=== PATIENT | male | born 1980 | race Caucasian/White ===

== ENCOUNTER 2018-01-28 15:57 | Emergency (ER) | payer OTHER ==
[~2018-01-28] VITALS: Ht 175.3 cm; Wt 68.0 kg
[~2018-01-28 15:57] MED LIST: ALBU90OI INH; AMIT50; AMOX500 PO; ARIP10 PO; AZIT250 PO; AZIT500 PO; BACL10 PO; BUPR150ER PO; BUPR150T2 PO; BUPR75 PO; CEPH500 PO; CIPR500 PO; CIPRO500 MG PO; CRUTCH USE; CYCL10 PO; Cleocin HCl150 MG PO; Cleocin HCl300 MG PO; Crutch1 EACH MISC; DOXY100 PO; GABA300 PO; GABA800 PO; HYDACE5 PO; HYDACE5325 PO; HYDPAM50 PO; IBUP600 PO; IBUP800 PO; KETO10 PO; LAMO25 PO; NAPR500 PO; Naprosyn500 MG PO; ONDA4ODT MM; OXYACE5T PO; PENVK500 PO; PHENA200 PO; PRED20 PO; PROM25 PO; Prozac20 MG; Prozac20 MG PO; QUET25 PO; RXTRAM50 PO; Robaxin500 MG PO; Roxicodone15 MG PO; SULTRIDS PO; TAMS.4ER PO; TRAACE PO; TRAM50 PO; ZYPREXA
== END 2018-01-28 16:33 | disposition home or self-care (01) ==
LOC: ER 15:57
DX: S01.01XA Laceration without foreign body of scalp, initial encounter (principal); F32.9 Major depressive disorder, single episode, unspecified; J45.909 Unspecified asthma, uncomplicated; Z91.018 Allergy to other foods; Z88.6 Allergy status to analgesic agent; Z88.2 Allergy status to sulfonamides; Z88.1 Allergy status to other antibiotic agents; Z79.899 Other long term (current) drug therapy; W22.8XXA Striking against or struck by other objects, initial encounter
CPT/HCPCS: 12004; 99283

== ENCOUNTER 2018-05-13 21:04 | Emergency (ER) | payer OTHER ==
[~2018-05-13] VITALS: Ht 175.3 cm; Wt 74.8 kg
== END 2018-05-13 23:35 ==
LOC: ER 21:04
DX: R45.1 Restlessness and agitation (principal); Z59.0 Homelessness; Z91.018 Allergy to other foods; Z88.6 Allergy status to analgesic agent; Z88.1 Allergy status to other antibiotic agents; Z88.2 Allergy status to sulfonamides; F17.210 Nicotine dependence, cigarettes, uncomplicated
CPT/HCPCS: 99284

== ENCOUNTER 2018-07-02 12:32 | Observation (INO) | payer OTHER ==
[~2018-07-02] VITALS: Ht 175.3 cm; Wt 72.6 kg
[2018-07-02 13:22] LABS: BASOPHILS ABSOLUTE AUTO 0.04 K/mm3 (0.00-0.23); BASOPHILS PERCENT AUTO 0 % (0-2); EOSINOPHILS ABSOLUTE AUTO 0.31 K/mm3 (0.00-0.68); EOSINOPHILS PERCENT AUTO 3 % (0-6); Hematocrit 46.6 % (37.0-53.0); Hemoglobin 15.8 g/dL (13.5-17.5); IMMATURE GRAN ABSOLUTE AUTO 0.02 K/mm3 (0.00-0.10); IMMATURE GRAN PERCENT AUTO 0 % (0-1); LYMPHOCYTES ABSOLUTE AUTO 1.07 K/mm3 (0.84-5.20); LYMPHOCYTES PERCENT AUTO 11 % (21-46); MONOCYTES ABSOLUTE AUTO 0.56 K/mm3 (0.16-1.47); MONOCYTES PERCENT AUTO 6 % (4-13); Mean Corpuscular HGB 31.1 pg (26.0-34.0); Mean Corpuscular HGB Conc 33.9 g/dL (31.5-36.5); Mean Corpuscular Volume 92 fL (80-100); Mean Platelet Volume 10.8 fL (9.1-12.4); NEUTROPHILS ABSOLUTE AUTO 8.08 K/mm3 (1.96-9.15); NEUTROPHILS PERCENT AUTO 80 % (41-73); Platelet Count 198 K/mm3 (150-400); RDW Coefficient Variation 11.9 % (11.7-14.2); RDW Standard Deviation 40.7 fL (35.1-46.3); Red Blood Cell Count 5.08 M/mm3 (4.30-5.90); White Blood Cell Count 10.08 K/mm3 (4.00-11.30)
[2018-07-02 13:43] LABS: Alanine Aminotransfer (ALT/SGP 17 U/L (12-78); Albumin, Blood 3.5 g/dL (3.4-5.0); Alk Phos 82 U/L (50-136); Anion Gap 6 mmol/L (6-16); Aspartate Aminotrans (AST/SGOT 14 U/L (12-37); Bilirubin, Total 0.3 mg/dL (0.1-1.0); Blood Urea Nitrogen 16 mg/dL (8-24); CO2, Blood 30 mmol/L (21-32); Calcium, Blood 8.3 mg/dL (8.5-10.1); Chloride, Blood 105 mmol/L (98-108); Creatinine, Blood 0.73 mg/dL (0.60-1.20); Ethanol (Alcohol), Blood, Med <3 mg/dL; Globulin, Blood 3.4 g/dL (2.2-4.0); Glomerular Filtration Rate >60 (60-); Glucose, Blood 84 mg/dL (70-99); Potassium, Blood 4.5 mmol/L (3.5-5.5); Salicylate 2.4 mg/dL (2.8-20.0); Sodium, Blood 141 mmol/L (136-145); Total Protein, Blood 6.9 g/dL (6.4-8.2)
[2018-07-02 13:49] LABS: Acetaminophen, Random <2.0 ug/mL (10.0-30.0)
[2018-07-02 14:01] LABS: Source, Urine Voided
[2018-07-02 14:07] LABS: Appearance, Urine Clear (Clear); Bilirubin, Urine Neg (Neg); Blood, Urine Neg (Neg); Color, Urine Yellow (P-Yellow); Glucose Qualitative, Urine Neg (Neg); Ketones, Urine Neg (Neg); Leukocyte Esterase, Urine 1+ (Neg); Nitrite, Urine Neg (Neg); Protein, Urine Neg (Neg); Urobilinogen, Urine NORM (Normal)
[2018-07-02 14:20] LABS: U Amphetamine Screen DETECTED; U Barbituate Screen Not Detected; U Benzodiazapine Screen Not Detected; U Buprenorphine Screen Not Detected; U Cannabinoids Screen DETECTED; U Cocaine Screen Not Detected; U Methadone Screen Not Detected; U Methamphetamine Screen Not Detected; U Opiates Screen Not Detected; U Oxycodone Screen Not Detected; U Phencyclidine Screen Not Detected; U Propoxyphene Screen Not Detected
[2018-07-02 14:28] LABS: Red Blood Cells, Urine Not Seen /hpf (0-2)
[2018-07-02 14:29] LABS: Bacteria Not Seen /hpf; Squamous Epithelial Cells Not Seen /hpf (Few)
== END 2018-07-04 13:41 | disposition home or self-care (01) ==
LOC: ER 12:32 → EOR 12:33
PROVIDERS: Emergency Medicine
DX: R56.9 Unspecified convulsions (principal); F28 Other psychotic disorder not due to a substance or known physiological condition; F15.10 Other stimulant abuse, uncomplicated; F10.10 Alcohol abuse, uncomplicated; R45.851 Suicidal ideations; F17.210 Nicotine dependence, cigarettes, uncomplicated; Z88.2 Allergy status to sulfonamides; Z86.14 Personal history of Methicillin resistant Staphylococcus aureus infection; Z88.8 Allergy status to other drugs, medicaments and biological substances
CPT/HCPCS: 71045; 80053; 81001; 84443; 85025; 99285; G0378; G0480; Q3014

== ENCOUNTER 2018-07-21 04:31 | Emergency (ER) | payer OTHER ==
[~2018-07-21] VITALS: Ht 177.8 cm; Wt 79.4 kg
== END 2018-07-21 05:00 | disposition home or self-care (01) ==
LOC: ER 04:31
DX: R45.4 Irritability and anger (principal); R45.1 Restlessness and agitation; R53.83 Other fatigue; Z59.0 Homelessness; F17.210 Nicotine dependence, cigarettes, uncomplicated; Z88.2 Allergy status to sulfonamides
CPT/HCPCS: 99282

== ENCOUNTER 2018-08-13 05:35 | Emergency (ER) | payer OTHER ==
[~2018-08-13] VITALS: Ht 177.8 cm; Wt 79.4 kg
[2018-08-13 06:06] LABS: BASOPHILS ABSOLUTE AUTO 0.02 K/mm3 (0.00-0.23); BASOPHILS PERCENT AUTO 0 % (0-2); EOSINOPHILS PERCENT AUTO 4 % (0-6); Hematocrit 44.8 % (37.0-53.0); Hemoglobin 14.8 g/dL (13.5-17.5); IMMATURE GRAN ABSOLUTE AUTO 0.01 K/mm3 (0.00-0.10); IMMATURE GRAN PERCENT AUTO 0 % (0-1); LYMPHOCYTES ABSOLUTE AUTO 0.67 K/mm3 (0.84-5.20); LYMPHOCYTES PERCENT AUTO 14 % (21-46); MONOCYTES ABSOLUTE AUTO 0.82 K/mm3 (0.16-1.47); MONOCYTES PERCENT AUTO 18 % (4-13); Mean Corpuscular HGB 30.4 pg (26.0-34.0); Mean Corpuscular Volume 92 fL (80-100); Mean Platelet Volume 11.1 fL (9.1-12.4); NEUTROPHILS ABSOLUTE AUTO 2.97 K/mm3 (1.96-9.15); NEUTROPHILS PERCENT AUTO 63 % (41-73); Platelet Count 134 K/mm3 (150-400); RDW Coefficient Variation 12.8 % (11.7-14.2); RDW Standard Deviation 43.2 fL (35.1-46.3); Red Blood Cell Count 4.87 M/mm3 (4.30-5.90); White Blood Cell Count 4.69 K/mm3 (4.00-11.30)
[2018-08-13 06:18] LABS: Alanine Aminotransfer (ALT/SGP 28 U/L (12-78); Albumin, Blood 3.5 g/dL (3.4-5.0); Albumin/Globulin Ratio 1.1 (0.8-1.8); Alk Phos 75 U/L (50-136); Anion Gap 5 mmol/L (6-16); Aspartate Aminotrans (AST/SGOT 13 U/L (12-37); Bilirubin, Total 0.3 mg/dL (0.1-1.0); Blood Urea Nitrogen 17 mg/dL (8-24); Bun/Creatinine Ratio 22.3 (12.0-20.0); CO2, Blood 28 mmol/L (21-32); Calcium, Blood 7.8 mg/dL (8.5-10.1); Chloride, Blood 109 mmol/L (98-108); Creatinine, Blood 0.76 mg/dL (0.60-1.20); Globulin, Blood 3.1 g/dL (2.2-4.0); Glomerular Filtration Rate >60 (60-); Glucose, Blood 80 mg/dL (70-99); Potassium, Blood 4.5 mmol/L (3.5-5.5); Sodium, Blood 142 mmol/L (136-145); Total Protein, Blood 6.6 g/dL (6.4-8.2)
[2018-08-13 06:29] LABS: International Normalized Ratio 1.02; Prothrombin Time Results 10.8 Sec (9.7-11.5)
== END 2018-08-13 07:12 | disposition home or self-care (01) ==
LOC: ER 05:35 → EDBD 05:35 → ER 07:12
PROVIDERS: Emergency Medicine
DX: S09.90XA Unspecified injury of head, initial encounter (principal); W06.XXXA Fall from bed, initial encounter; Z59.0 Homelessness; Z91.018 Allergy to other foods; Z88.6 Allergy status to analgesic agent; Z88.8 Allergy status to other drugs, medicaments and biological substances; Z88.2 Allergy status to sulfonamides; Z88.1 Allergy status to other antibiotic agents; F17.200 Nicotine dependence, unspecified, uncomplicated
CPT/HCPCS: 70450; 72125; 80053; 85025; 85610; 85730; 99284-25

== ENCOUNTER 2018-08-15 09:23 | Emergency (ER) | payer OTHER ==
[~2018-08-15] VITALS: Ht 175.3 cm; Wt 68.0 kg
[2018-08-15] MEDS ORDERED: RISP2 PO (12:02)
== END 2018-08-15 12:44 | disposition home or self-care (01) ==
LOC: ER 09:23
DX: S91.202A Unspecified open wound of left great toe with damage to nail, initial encounter (principal); W22.8XXA Striking against or struck by other objects, initial encounter; F17.200 Nicotine dependence, unspecified, uncomplicated; Z91.018 Allergy to other foods; Z88.6 Allergy status to analgesic agent; Z88.2 Allergy status to sulfonamides; Z88.1 Allergy status to other antibiotic agents
CPT/HCPCS: 11730; 99284-25

== ENCOUNTER 2018-09-10 15:56 | Inpatient (IN) | payer OTHER ==
[~2018-09-10] VITALS: Ht 182.9 cm; Wt 76.6 kg
[~2018-09-10 15:56] MED LIST changes: +Dilantin 100 m100 MG PO; +RISP2 PO
[2018-09-10 16:07] LABS: BASOPHILS ABSOLUTE AUTO 0.05 K/mm3 (0.00-0.23); BASOPHILS PERCENT AUTO 0 % (0-2); EOSINOPHILS ABSOLUTE AUTO 0.24 K/mm3 (0.00-0.68); EOSINOPHILS PERCENT AUTO 1 % (0-6); Hematocrit 52.7 % (37.0-53.0); Hemoglobin 16.9 g/dL (13.5-17.5); IMMATURE GRAN ABSOLUTE AUTO 0.05 K/mm3 (0.00-0.10); IMMATURE GRAN PERCENT AUTO 0 % (0-1); LYMPHOCYTES ABSOLUTE AUTO 0.93 K/mm3 (0.84-5.20); LYMPHOCYTES PERCENT AUTO 6 % (21-46); MONOCYTES PERCENT AUTO 6 % (4-13); Mean Corpuscular HGB 30.6 pg (26.0-34.0); Mean Corpuscular HGB Conc 32.1 g/dL (31.5-36.5); Mean Corpuscular Volume 96 fL (80-100); Mean Platelet Volume 10.6 fL (9.1-12.4); NEUTROPHILS ABSOLUTE AUTO 14.59 K/mm3 (1.96-9.15); NEUTROPHILS PERCENT AUTO 87 % (41-73); Platelet Count 191 K/mm3 (150-400); RDW Standard Deviation 46.4 fL (35.1-46.3); Red Blood Cell Count 5.52 M/mm3 (4.30-5.90); White Blood Cell Count 16.86 K/mm3 (4.00-11.30)
[2018-09-10 16:32] LABS: Alanine Aminotransfer (ALT/SGP 19 U/L (12-78); Albumin/Globulin Ratio 1.2 (0.8-1.8); Alk Phos 87 U/L (50-136); Anion Gap 14 mmol/L (6-16); Aspartate Aminotrans (AST/SGOT 10 U/L (12-37); Bilirubin, Total 0.7 mg/dL (0.1-1.0); Blood Urea Nitrogen 15 mg/dL (8-24); Bun/Creatinine Ratio 22.5 (12.0-20.0); CO2, Blood 19 mmol/L (21-32); Calcium, Blood 8.3 mg/dL (8.5-10.1); Chloride, Blood 106 mmol/L (98-108); Creatinine, Blood 0.67 mg/dL (0.60-1.20); Globulin, Blood 3.3 g/dL (2.2-4.0); Glomerular Filtration Rate >60 (60-); Glucose, Blood 101 mg/dL (70-99); Magnesium, Blood 1.9 mg/dL (1.6-2.4); Potassium, Blood 3.6 mmol/L (3.5-5.5); Sodium, Blood 139 mmol/L (136-145); Total Protein, Blood 7.3 g/dL (6.4-8.2)
--- NOTE | 2018-09-10 19:53 | NUR ---
REPORT RECEIVED REPORT RECEIVED FROM SANDY LIGHT RN
--- NOTE | 2018-09-10 22:02 | NUR ---
ARRIVAL TO UNIT/ADMISSION PT ARRIVED TO ICU APPROX 1999. PT SLEEPING SOUNDLY, STARTLES WHEN AROUSED. ONCE AWAKE, PT ALERT AND ORIENTED, FOLLOWING COMMANDS. PT QUICKLY FALLS BACK TO SLEEP DURING ASSESSMENTS AND IS DIFFICULT TO AROUSE. PT IS POOR HISTORIAN. ATTEMPTED TO COMPLETE ADMISSION MEDS AND HISTORY AND PT HAS VARYING STORIES. ADMISSION HISTORY COMPLETED PER MEDICAL RECORD. MED REC INCOMPLETE PT STATES HE DOES NOT KNOW HIS HOME MEDS. PT FIDGETING, RESTLESS WITH CORDS/LINES AND BECAME IRRITABLE WHEN ATTEMPTED TO REDIRECT. PT DECLINES NEEDING TO URINATE, AND UPON TRANSFER PT'S BOXERS WERE COVERED IN URINE. SEIZURE PRECAUTIONS IN PLACE. VITALS STABLE. SEE ASSESSMENT.
[2018-09-10 22:46] LABS: Source, Urine Catheter
[2018-09-10 22:47] LABS: Bilirubin, Urine Neg (Neg); Blood, Urine Neg (Neg); Glucose Qualitative, Urine Neg (Neg); Ketones, Urine Neg (Neg); Leukocyte Esterase, Urine 1+ (Neg); Nitrite, Urine Neg (Neg); Protein, Urine Neg (Neg); Urobilinogen, Urine 1+ (Normal)
[2018-09-10 22:53] LABS: Appearance, Urine Clear (Clear); Color, Urine Yellow (P-Yellow)
[2018-09-10 22:54] LABS: Bacteria Rare /hpf; Mucus Light (0-Heavy); Red Blood Cells, Urine Not Seen /hpf (0-2); Squamous Epithelial Cells Rare /hpf (Few)
[2018-09-10 23:07] LABS: U Amphetamine Screen DETECTED; U Barbituate Screen DETECTED; U Benzodiazapine Screen DETECTED; U Buprenorphine Screen Not Detected; U Cannabinoids Screen DETECTED; U Cocaine Screen Not Detected; U Methadone Screen Not Detected; U Methamphetamine Screen DETECTED; U Opiates Screen Not Detected; U Oxycodone Screen Not Detected; U Phencyclidine Screen Not Detected; U Propoxyphene Screen Not Detected
--- NOTE | 2018-09-10 23:55 | NUR ---
NEURO, PSYCHOSOCIAL, CIWA, HOME SITUATION PT CONTINUES TO BE SLEEPY, BUT AROUSING MORE EASILY. PT CALM AND COOPERATIVE, BUT CIWA ELEVATED PT IS NOW SWEATY. WHEN PROMPTED, PT CONTINUES TO TALK ABOUT PT'S MORGELLONS DISEASE, HAS INCREASED FLIGHT OF IDEAS, AND EXPLAINS THAT PEOPLE WITH BIBLES COME UP TO HIM AND COMMUNICATE WITH EITHER WINKS OR COUGHS. HE STATES, "I AM NOT COMING DOWN OFF OF ALCOHOL OR DRUGS," AND REPORTS HE HAS BEEN DEALING WITH THESE IMAGES FOR SEVERAL YEARS. DISCUSSED PT'S TOX SCREEN RESULTS AND PT STATES, "THAT MAKES ME NOT TRUST THE PEOPLE I'M LIVING WITH. THEY ARE ALWAYS OFFERING TO BRING ME COFFEE AND THEY ARE HIGH AND THEN I AM HIGH. I AM NOT SHOOTING MY VEINS OR SMOKING DOPE." BANANA LOADER REFERRAL ALREADY IN PLACE PER ADMITTING DATA NETWORK ARCHITECT. WILL CONTINUE TO MONITOR FOR NEED OF CIWA ORDER SET, BUT AT THIS TIME PT REPORTS THIS HIS BASELINE AND CONTINUES TO BE ORIENTED, CALM AND COOPERATIVE.
[2018-09-11 00:27] LABS: Adenovirus Not Detected (NOT DETECT); Bordetella pertussis Not Detected (NOT DETECT); Chlamydophila pneumoniae Not Detected (NOT DETECT); Coronavirus 229E Not Detected (NOT DETECT); Coronavirus HKU1 Not Detected (NOT DETECT); Coronavirus NL63 Not Detected (NOT DETECT); Coronavirus OC43 Not Detected (NOT DETECT); Human Metapneumovirus Not Detected (NOT DETECT); Human Rhinovirus/Enterovirus Not Detected (NOT DETECT); Influenza A Not Detected (NOT DETECT); Influenza A/2009-H1 Not Detected (NOT DETECT); Influenza A/H1 Not Detected (NOT DETECT); Influenza A/H3 Not Detected (NOT DETECT); Influenza B Not Detected (NOT DETECT); Mycoplasma pneumoniae Not Detected (NOT DETECT); Parainfluenza Virus 1 Not Detected (NOT DETECT); Parainfluenza Virus 2 Not Detected (NOT DETECT); Parainfluenza Virus 3 Not Detected (NOT DETECT); Parainfluenza Virus 4 Not Detected (NOT DETECT); Respiratory Syncytial Virus Not Detected (NOT DETECT)
[2018-09-11 03:33] LABS: Hematocrit 43.7 % (37.0-53.0); Mean Corpuscular HGB Conc 34.3 g/dL (31.5-36.5); Mean Corpuscular Volume 90 fL (80-100); Mean Platelet Volume 10.9 fL (9.1-12.4); Platelet Count 131 K/mm3 (150-400); RDW Coefficient Variation 12.5 % (11.7-14.2); RDW Standard Deviation 41.4 fL (35.1-46.3); Red Blood Cell Count 4.84 M/mm3 (4.30-5.90); White Blood Cell Count 6.46 K/mm3 (4.00-11.30)
[2018-09-11 03:46] LABS: International Normalized Ratio 1.09; Prothrombin Time Results 11.5 Sec (9.7-11.5)
[2018-09-11 03:49] LABS: Alanine Aminotransfer (ALT/SGP 13 U/L (12-78); Albumin, Blood 3.3 g/dL (3.4-5.0); Albumin/Globulin Ratio 1.3 (0.8-1.8); Alk Phos 71 U/L (50-136); Anion Gap 6 mmol/L (6-16); Aspartate Aminotrans (AST/SGOT 11 U/L (12-37); Bilirubin, Total 0.7 mg/dL (0.1-1.0); Blood Urea Nitrogen 11 mg/dL (8-24); Bun/Creatinine Ratio 17.8 (12.0-20.0); CO2, Blood 25 mmol/L (21-32); Calcium, Blood 7.8 mg/dL (8.5-10.1); Chloride, Blood 108 mmol/L (98-108); Creatinine, Blood 0.62 mg/dL (0.60-1.20); Globulin, Blood 2.6 g/dL (2.2-4.0); Glomerular Filtration Rate >60 (60-); Glucose, Blood 85 mg/dL (70-99); Potassium, Blood 3.9 mmol/L (3.5-5.5); Sodium, Blood 139 mmol/L (136-145); Total Protein, Blood 5.9 g/dL (6.4-8.2)
--- NOTE | 2018-09-11 05:00 | NUR ---
CIWA REASSESSMENTS CIWA REMAINS ELEVATED BUT IMPROVED. CONCERN FOR ASSESSMENTS BEING PT'S BASELINE. PT CONTINUES TO DENY ETOH USE AND HAS RESTED QUIETLY.
--- NOTE | 2018-09-11 06:47 | NUR ---
SUMMARY PT HAS SLEPT MAJORITY OF NIGHT, AROUSING EASILY FOR REASSESSMENTS. PT HAS BEEN IRRITABLE, LABILE THROUGHOUT NIGHT REGARDING ROUNDS AND CARES. THIS MORNING PT DID HAVE ONE EPISODE OF AGITATION, ATTEMPTING TO HIT STAFF WHEN STAFF WAS ATTEMPTING TO REPLACE DISCONNECTED LINES, ESCALATING TO THE POINT OF YELLING AUDIBLE ON OTHER SIDE OF ICU. HOWEVER, PT DID DE-ESCALATE WITH PRESENCE OF INCREASED STAFF AND HAS BEEN CALM, COOPERATIVE AND APOLOGETIC SINCE THIS EPISODE. NO SEIZURES OR SEIZURE LIKE ACTIVITY THROUGHOUT NIGHT. NEURO ASSESSMENTS UNCHANGED OTHER THAN PT HAS BEEN INCREASINGLY ALERT. VITALS STABLE. SEE ASSESSMENTS/FLOWSHEETS.
--- NOTE | 2018-09-11 07:25 | NUR ---
ASSUMED CARE: PT IS RESTING QUIETLY AT THIS TIME. VSS, NSR, RA. NO ACUTE NEEDS OR CONCERNS AT THIS TIME.
--- NOTE | 2018-09-11 11:34 | NUR ---
DR GARSIA CAME TO SEE PT. REQUESTED DR PAZ CONSULT WHEN TOLD PT HAS BEEN HAVING DELUSIONS OF GRANDEUR. PT ALSO HAS PSYCH HISTORY AND POLYSUBSTANCE ABUSE. CALL TO DR PAZ. DR STATES HE WILL TRY TO SEE PT THIS AFTERNOON BUT IF CONSULT IS NEEDED SOONER, DO TELEPSYCH. DR GARSIA STATES TELEPSYCH NOT NEEDED. STATES HE WILL WAIT FOR DR PAZ AND DR SOUZA CONSULTS BEFORE PLANNING DISCHARGE
--- NOTE | 2018-09-11 16:42 | NUR ---
DR SOUZA WAS IN ROOM TO SEE PT AND WAS ASKING HISTORY AND PT BEGAN YELLING AND SWEARING AT DR. A NURSE STOOD BY THE DOOR TO ASSIST AND PT CHARGED HER AND STARTED SHOUTING AT HER. SECURITY CALLED. PT REQUESTED IV'S OUT WHICH WERE REMOVED. PT REVIEWED AMA FORM THAT STATED RISKS WERE "" AND "CONTINUING ILLNESS." PT ASKED IF WAS TRULY A RISK AND IT WAS EXPLAINED THAT HE WAS IN ICU AND IF THE CAUSE OF HIS SEIZURES IS NOT DETERMINED HE COULD POTENTIAL FROM SOME SORT OF INCIDENT. HE WAS ALSO EDUCATED THAT IF HE LEFT AMA HE WOULD HAVE NO DISCHARGE INSTRUCTIONS, MEDICATIONS PRESCRIBED, OR ASSISTANCE WITH REFERRALS. PT ASKED IF HE COULD STAY IF HE PROMISED TO BE GOOD. HE WAS TOLD HE COULD STAY BUT HE CANNOT SPEAK TO STAFF AND DOCTORS LIKE THAT ANYMORE. PT CALMED DOWN AND DR GARSIA WAS NOTIFIED. HE IS HERE SPEAKING WITH DR SOUZA NOW.
--- NOTE | 2018-09-11 18:05 | NUR ---
SHIFT SUMMARY: PT RESTING IN BED AT THIS TIME WATCHING TV AND EATING DINNER. NO FURTHER OUTBURSTS. IV'S OUT PER DR ISTRATE. PT AWARE THAT THEY WILL HAVE TO BE REPLACED IF SEIZURE ACTIVITY OCCURS. PROJECT MANAGER/TEAM COACH AWARE. PT REMAINS MEDICAL STATUS.
--- NOTE | 2018-09-11 21:15 | NUR ---
PATIENT OUT SIDE WITH VISITOR IN WHEEL CHAIR TO SMOKE. PATIENT BACK IN ROOM, MARI PO WELL UP IN ROOM WITHOUT DIFFICULTY. NO COMPLAINTS AT THIS TIME
--- NOTE | 2018-09-12 01:16 | NUR ---
PATIENT SLEEPING WITH FRIEND AT BEDSIDE. RESP EVEN AND UNLABORED
[2018-09-12 04:15] LABS: BASOPHILS ABSOLUTE AUTO 0.01 K/mm3 (0.00-0.23); BASOPHILS PERCENT AUTO 0 % (0-2); EOSINOPHILS ABSOLUTE AUTO 0.19 K/mm3 (0.00-0.68); EOSINOPHILS PERCENT AUTO 2 % (0-6); Hematocrit 45.4 % (37.0-53.0); Hemoglobin 15.5 g/dL (13.5-17.5); IMMATURE GRAN ABSOLUTE AUTO 0.01 K/mm3 (0.00-0.10); IMMATURE GRAN PERCENT AUTO 0 % (0-1); LYMPHOCYTES ABSOLUTE AUTO 0.76 K/mm3 (0.84-5.20); LYMPHOCYTES PERCENT AUTO 10 % (21-46); MONOCYTES ABSOLUTE AUTO 0.63 K/mm3 (0.16-1.47); MONOCYTES PERCENT AUTO 8 % (4-13); Mean Corpuscular HGB 30.9 pg (26.0-34.0); Mean Corpuscular HGB Conc 34.1 g/dL (31.5-36.5); Mean Corpuscular Volume 91 fL (80-100); Mean Platelet Volume 10.4 fL (9.1-12.4); NEUTROPHILS ABSOLUTE AUTO 6.24 K/mm3 (1.96-9.15); NEUTROPHILS PERCENT AUTO 80 % (41-73); Platelet Count 151 K/mm3 (150-400); RDW Coefficient Variation 12.6 % (11.7-14.2); RDW Standard Deviation 41.3 fL (35.1-46.3); Red Blood Cell Count 5.01 M/mm3 (4.30-5.90); White Blood Cell Count 7.84 K/mm3 (4.00-11.30)
[2018-09-12 04:31] LABS: Anion Gap 5 mmol/L (6-16); Blood Urea Nitrogen 11 mg/dL (8-24); Bun/Creatinine Ratio 14.9 (12.0-20.0); CO2, Blood 27 mmol/L (21-32); Chloride, Blood 110 mmol/L (98-108); Creatinine, Blood 0.74 mg/dL (0.60-1.20); Glomerular Filtration Rate >60 (60-); Glucose, Blood 96 mg/dL (70-99); Potassium, Blood 4.3 mmol/L (3.5-5.5); Sodium, Blood 142 mmol/L (136-145)
--- NOTE | 2018-09-12 04:39 | NUR ---
PATIENT AWAKE, WENT OUTSIDE IN WHEEL CHAIR WITH FRIEND.
--- NOTE | 2018-09-12 07:42 | NUR ---
SUMMARY PATIENT SLEEPING T/O NIGHT WITH FRIEND AT BEDSIDE. OUTSIDE TO SMOKE TWICE DURING THE NIGHT. NO COMPLAINTS T/O NIGHT.
--- NOTE | 2018-09-12 08:00 | NUR ---
Recieved report from Lexy FLETCHER. Patient current ly sleeping with significant other in bed with him. Will await for patient to awake.
--- NOTE | 2018-09-12 08:45 | NUR ---
patient awake and alert and able to communicate his needs. he tolerated PO med and breakfast well . He is independent in room and has BRP. Patient and significant other got up and got dressed and he is cureently up in chair reading the bible. He denies any SOB and requested to go out and smoke, i started to take wheel chair incase feeling bed. patient has shown no signs of siezure activity. VSS
--- NOTE | 2018-09-12 09:45 | NUR ---
Patient is out smoking and Dr Pepper will be discharge ing him home today.
[2018-09-12] MEDS ORDERED: FOLI1 PO (11:50)
[2018-09-12] MEDS ORDERED: ALBU90OI INH (11:50)
[2018-09-12] MEDS ORDERED: ONDA4ODT MM (11:51)
[2018-09-12] MEDS ORDERED: Nicoderm Cq1 EAC1 TD (11:51)
--- NOTE | 2018-09-12 11:51 | NUR ---
Pt. is doing well and may go home today encouraged pt. and offered prayer some prayers.
[2018-09-12] MEDS ORDERED: LAMO100 PO (11:52)
--- NOTE | 2018-09-12 12:08 | NUR ---
Patient returned from smoking and Dr Pepper has been by to assess and sign discharge orders. Called Abi FLETCHER and she will set up for follow up with new PCP. All meds faxed to [facility]. I reviewed all new meds and discussed stop smoking and recreational drugs. He returned understanding and exited and walked to car and went home POV. He took all personal belonging and wanted me to apolagize to Dr Bruno for him yelling at him.
== END 2018-09-12 12:08 | disposition home or self-care (01) | DRG 101 ==
LOC: ER 15:56 → ICUE 17:35 → ERHOLD 17:35 → ICUE 19:50
PROVIDERS: Emergency Medicine; Family Medicine; Nurse Practitioner Acute Care; ADMIT Family Medicine
DX: G40.509 Epileptic seizures related to external causes, not intractable, without status epilepticus (principal); F10.10 Alcohol abuse, uncomplicated; F15.10 Other stimulant abuse, uncomplicated; F13.10 Sedative, hypnotic or anxiolytic abuse, uncomplicated; F32.9 Major depressive disorder, single episode, unspecified; J45.909 Unspecified asthma, uncomplicated; F17.210 Nicotine dependence, cigarettes, uncomplicated; Z23 Encounter for immunization; Z59.0 Homelessness; Z88.2 Allergy status to sulfonamides; Z88.8 Allergy status to other drugs, medicaments and biological substances; Z86.14 Personal history of Methicillin resistant Staphylococcus aureus infection
CPT/HCPCS: 36415; 70450; 71045; 80048; 80053; 80177; 81001; 82550; 82947; 83605; 83735; 85025; 85027; 85610; 87086; 87486; 87581; 87633; 87798; 90686; 95819; 96365; 96375; 96376; 99285-25; G0008; G0480; J0610; J1953; J2060; J3475; J7030; J7042

== ENCOUNTER 2018-09-20 14:17 | Emergency (ER) | payer OTHER ==
[~2018-09-20] VITALS: Ht 182.9 cm; Wt 81.7 kg
[2018-09-20 15:34] LABS: BASOPHILS ABSOLUTE AUTO 0.04 K/mm3 (0.00-0.23); BASOPHILS PERCENT AUTO 0 % (0-2); EOSINOPHILS ABSOLUTE AUTO 0.18 K/mm3 (0.00-0.68); EOSINOPHILS PERCENT AUTO 1 % (0-6); Hematocrit 49.6 % (37.0-53.0); Hemoglobin 16.3 g/dL (13.5-17.5); IMMATURE GRAN ABSOLUTE AUTO 0.09 K/mm3 (0.00-0.10); IMMATURE GRAN PERCENT AUTO 1 % (0-1); LYMPHOCYTES ABSOLUTE AUTO 1.57 K/mm3 (0.84-5.20); LYMPHOCYTES PERCENT AUTO 12 % (21-46); MONOCYTES ABSOLUTE AUTO 0.46 K/mm3 (0.16-1.47); MONOCYTES PERCENT AUTO 3 % (4-13); Mean Corpuscular HGB 30.6 pg (26.0-34.0); Mean Corpuscular HGB Conc 32.9 g/dL (31.5-36.5); Mean Corpuscular Volume 93 fL (80-100); Mean Platelet Volume 10.9 fL (9.1-12.4); NEUTROPHILS ABSOLUTE AUTO 11.22 K/mm3 (1.96-9.15); NEUTROPHILS PERCENT AUTO 83 % (41-73); Platelet Count 230 K/mm3 (150-400); RDW Coefficient Variation 12.7 % (11.7-14.2); RDW Standard Deviation 43.8 fL (35.1-46.3); Red Blood Cell Count 5.33 M/mm3 (4.30-5.90); White Blood Cell Count 13.56 K/mm3 (4.00-11.30)
[2018-09-20 16:06] LABS: Alanine Aminotransfer (ALT/SGP 19 U/L (12-78); Albumin, Blood 3.9 g/dL (3.4-5.0); Albumin/Globulin Ratio 1.3 (0.8-1.8); Alk Phos 68 U/L (50-136); Anion Gap 6 mmol/L (6-16); Aspartate Aminotrans (AST/SGOT 10 U/L (12-37); Bilirubin, Total 0.3 mg/dL (0.1-1.0); Blood Urea Nitrogen 17 mg/dL (8-24); Bun/Creatinine Ratio 27.2 (12.0-20.0); CO2, Blood 29 mmol/L (21-32); Calcium, Blood 8.4 mg/dL (8.5-10.1); Chloride, Blood 105 mmol/L (98-108); Creatinine, Blood 0.63 mg/dL (0.60-1.20); Ethanol (Alcohol), Blood, Med <3 mg/dL; Globulin, Blood 3.1 g/dL (2.2-4.0); Glomerular Filtration Rate >60 (60-); Glucose, Blood 96 mg/dL (70-99); Potassium, Blood 4.1 mmol/L (3.5-5.5); Sodium, Blood 140 mmol/L (136-145)
[2018-09-20 16:13] LABS: Dilantin (Phenytoin), Total 0.5 ug/mL (10.0-20.0)
[2018-09-20] MEDS ORDERED: PHENY100ER PO (17:41)
[2018-09-20] MEDS ORDERED: RISP2 PO (17:42)
[2018-09-20] MEDS ORDERED: LAMO100 PO (18:45)
[2018-09-20] MEDS ORDERED: ALBU90OI INH (18:46)
[2018-09-20] MEDS ORDERED: FOLI1 PO (18:46)
[2018-09-20] MEDS ORDERED: ONDA4ODT MM (18:47)
[2018-09-20] MEDS ORDERED: Nicoderm Cq1 EAC1 TD (18:47)
== END 2018-09-20 19:23 | disposition home or self-care (01) ==
LOC: ER 14:17
PROVIDERS: Emergency Medicine
DX: R56.9 Unspecified convulsions (principal); Z91.14 Patient's other noncompliance with medication regimen; Z88.6 Allergy status to analgesic agent; Z88.2 Allergy status to sulfonamides; Z91.018 Allergy to other foods; Z98.1 Arthrodesis status
CPT/HCPCS: 80053; 80185; 85025; 96374; 96375; 99284-25; G0480; J1165; J2060

== ENCOUNTER 2018-10-16 13:07 | Emergency (ER) | payer OTHER ==
[~2018-10-16] VITALS: Ht 175.3 cm; Wt 70.3 kg
[~2018-10-16 13:07] MED LIST changes: +FOLI1 PO; +LAMO100 PO; +Nicoderm Cq1 EAC1 TD; +PHENY100ER PO
[2018-10-16] MEDS ORDERED: Lamictal150 MG PO (14:22)
[2018-10-16] MEDS ORDERED: FOLI1 PO (14:22)
== END 2018-10-16 14:26 | disposition home or self-care (01) ==
LOC: ER 13:07
DX: Z76.0 Encounter for issue of repeat prescription (principal); F17.210 Nicotine dependence, cigarettes, uncomplicated; Z91.018 Allergy to other foods; Z88.6 Allergy status to analgesic agent; Z88.2 Allergy status to sulfonamides; Z88.1 Allergy status to other antibiotic agents; Z79.899 Other long term (current) drug therapy
CPT/HCPCS: 99281

== ENCOUNTER 2018-10-24 10:37 | Emergency (ER) | payer OTHER ==
[~2018-10-24] VITALS: Ht 175.3 cm; Wt 74.8 kg
[~2018-10-24 10:37] MED LIST changes: +Lamictal150 MG PO
[2018-10-24 11:34] LABS: BASOPHILS ABSOLUTE AUTO 0.05 K/mm3 (0.00-0.23); BASOPHILS PERCENT AUTO 1 % (0-2); EOSINOPHILS ABSOLUTE AUTO 0.33 K/mm3 (0.00-0.68); EOSINOPHILS PERCENT AUTO 5 % (0-6); Hematocrit 47.1 % (37.0-53.0); Hemoglobin 15.7 g/dL (13.5-17.5); IMMATURE GRAN ABSOLUTE AUTO 0.02 K/mm3 (0.00-0.10); IMMATURE GRAN PERCENT AUTO 0 % (0-1); LYMPHOCYTES ABSOLUTE AUTO 0.79 K/mm3 (0.84-5.20); LYMPHOCYTES PERCENT AUTO 11 % (21-46); MONOCYTES ABSOLUTE AUTO 0.46 K/mm3 (0.16-1.47); MONOCYTES PERCENT AUTO 7 % (4-13); Mean Corpuscular HGB 30.5 pg (26.0-34.0); Mean Corpuscular HGB Conc 33.3 g/dL (31.5-36.5); Mean Corpuscular Volume 92 fL (80-100); Mean Platelet Volume 10.6 fL (9.1-12.4); NEUTROPHILS ABSOLUTE AUTO 5.42 K/mm3 (1.96-9.15); NEUTROPHILS PERCENT AUTO 77 % (41-73); Platelet Count 149 K/mm3 (150-400); RDW Coefficient Variation 12.1 % (11.7-14.2); RDW Standard Deviation 41.2 fL (35.1-46.3); Red Blood Cell Count 5.14 M/mm3 (4.30-5.90); White Blood Cell Count 7.07 K/mm3 (4.00-11.30)
[2018-10-24 11:53] LABS: Anion Gap 4 mmol/L (6-16); Blood Urea Nitrogen 15 mg/dL (8-24); Bun/Creatinine Ratio 19.7 (12.0-20.0); CO2, Blood 30 mmol/L (21-32); Calcium, Blood 8.3 mg/dL (8.5-10.1); Chloride, Blood 106 mmol/L (98-108); Creatinine, Blood 0.76 mg/dL (0.60-1.20); Glomerular Filtration Rate >60 (60-); Glucose, Blood 86 mg/dL (70-99); Potassium, Blood 4.5 mmol/L (3.5-5.5); Sodium, Blood 140 mmol/L (136-145)
== END 2018-10-24 13:09 | disposition home or self-care (01) ==
LOC: ER 10:37
PROVIDERS: Emergency Medicine
DX: R56.9 Unspecified convulsions (principal); F17.210 Nicotine dependence, cigarettes, uncomplicated; Z91.018 Allergy to other foods; Z88.6 Allergy status to analgesic agent; Z88.2 Allergy status to sulfonamides; Z79.899 Other long term (current) drug therapy
CPT/HCPCS: 80048; 85025; 99284; J7030

== ENCOUNTER 2018-11-08 17:48 | Emergency (ER) | payer OTHER ==
[~2018-11-08] VITALS: Ht 180.3 cm; Wt 77.1 kg
== END 2018-11-08 18:10 | disposition home or self-care (01) ==
LOC: ER 17:48
DX: R56.9 Unspecified convulsions (principal); F15.10 Other stimulant abuse, uncomplicated; F32.9 Major depressive disorder, single episode, unspecified; J45.909 Unspecified asthma, uncomplicated; G51.0 Bell's palsy; F17.210 Nicotine dependence, cigarettes, uncomplicated
CPT/HCPCS: 99282

== ENCOUNTER 2019-02-10 09:14 | Inpatient (IN) | payer OTHER ==
[~2019-02-10] VITALS: Ht 172.7 cm; Wt 70.1 kg
[2019-02-10 10:45] LABS: BASOPHILS ABSOLUTE AUTO 0.04 K/mm3 (0.00-0.23); BASOPHILS PERCENT AUTO 0 % (0-2); EOSINOPHILS ABSOLUTE AUTO 0.27 K/mm3 (0.00-0.68); EOSINOPHILS PERCENT AUTO 3 % (0-6); Hematocrit 48.2 % (37.0-53.0); Hemoglobin 16.6 g/dL (13.5-17.5); IMMATURE GRAN ABSOLUTE AUTO 0.03 K/mm3 (0.00-0.10); IMMATURE GRAN PERCENT AUTO 0 % (0-1); LYMPHOCYTES ABSOLUTE AUTO 0.65 K/mm3 (0.84-5.20); LYMPHOCYTES PERCENT AUTO 6 % (21-46); MONOCYTES ABSOLUTE AUTO 0.45 K/mm3 (0.16-1.47); MONOCYTES PERCENT AUTO 4 % (4-13); Mean Corpuscular HGB 31.3 pg (26.0-34.0); Mean Corpuscular HGB Conc 34.4 g/dL (31.5-36.5); Mean Corpuscular Volume 91 fL (80-100); NEUTROPHILS PERCENT AUTO 86 % (41-73); Platelet Count 163 K/mm3 (150-400); RDW Coefficient Variation 13.2 % (11.7-14.2); RDW Standard Deviation 44.4 fL (35.1-46.3); White Blood Cell Count 10.14 K/mm3 (4.00-11.30)
[2019-02-10 11:00] LABS: Alanine Aminotransfer (ALT/SGP 23 U/L (12-78); Albumin, Blood 3.7 g/dL (3.4-5.0); Albumin/Globulin Ratio 1.2 (0.8-1.8); Alk Phos 69 U/L (50-136); Anion Gap 4 mmol/L (6-16); Aspartate Aminotrans (AST/SGOT 29 U/L (12-37); Bilirubin, Total 0.6 mg/dL (0.1-1.0); Blood Urea Nitrogen 10 mg/dL (8-24); CO2, Blood 28 mmol/L (21-32); Calcium, Blood 7.9 mg/dL (8.5-10.1); Chloride, Blood 108 mmol/L (98-108); Creatinine, Blood 0.63 mg/dL (0.60-1.20); Glomerular Filtration Rate >60 (60-); Glucose, Blood 92 mg/dL (70-99); Potassium, Blood 4.7 mmol/L (3.5-5.5); Sodium, Blood 140 mmol/L (136-145); Total Protein, Blood 6.7 g/dL (6.4-8.2)
[2019-02-10 12:41] LABS: U Amphetamine Screen DETECTED; U Barbituate Screen Not Detected; U Benzodiazapine Screen DETECTED; U Buprenorphine Screen Not Detected; U Cannabinoids Screen DETECTED; U Cocaine Screen Not Detected; U Methadone Screen Not Detected; U Methamphetamine Screen Not Detected; U Opiates Screen Not Detected; U Oxycodone Screen Not Detected; U Phencyclidine Screen Not Detected; U Propoxyphene Screen Not Detected
[2019-02-10] MEDS ORDERED: LAMO100 PO (13:38)
[2019-02-10] MEDS ORDERED: FOLI1 PO (13:39)
--- NOTE | 2019-02-10 15:15 | NUR ---
ARRIVAL TO UNIT Assumed care of pt with Tomasa RN upon arrival to unit from ED at 1455. Pt arrived to unit in TAT restraints x 4. Room air. Accomapnied by 2 RNs and security. Pt taken out of TAT restraints and transferred from ED gurney to ICU bed with slider sheet and 6 staff. On assessment, pt awoke to verbal stimulus. Stated correct name and date of . Stated "[facility]" when asked current location. States "January 2019" when asked about current time. Pt able to make needs known "Cover up my legs" and "I'm cold". Pt drowsy, and falls asleep soon after waking up. Pt not alert enough for PO intake. Not alert enough to answer questions for admission history. Pt follows directions, allowing this RN to place an IV. Seizure pads on siderails x 4. No seizure activity noted. Plans for pt to go to CT.
--- NOTE | 2019-02-10 16:00 | NUR ---
UPDATE Pt taken to CT accompanied by transporter, seamus RN, and Tomasa RN. Pt tolerated CT well, following directions when asked to lay flat on his back. Pt continued to be drowsy. Upon returning to room at 1535, pt was audibly grinding teeth and became unresponsive. Tonic-clonic movement of extremities noted. Bite-block placed in mouth to minimize trauma to tongue. Pt having intermittent periods of apnea. RT called to bedside to manage airway. OPA placed. O2 delivery with ambu bag. Ativan administered. Dr Huff updated by discharge specialistProsper. Orders for tool crib clerk consultation. Dr Damon immediately at bedside. States plan for intubation. Pt medicated with 14 mg versed and [address] Damon. Intubated at 1549 with 8.0 cm ETT, 26 cm at teeth. Connected to ventilator AC 16, vT 450, FiO2 40%, PEEP 5. Propofol drip started. Pt coughing, puling at restraints.
--- NOTE | 2019-02-10 16:45 | NUR ---
PLAN OF CARE DISCUSSED WITH DR SHORT Discussed pt's agitation and blood pressure. Orders given for 1L bolus of NS.
[2019-02-10 17:49] LABS: PCO2 Arterial 45.5 mmHg (35-45); PO2 Arterial 74.2 mmHg (80-100); pH Blood Arterial 7.36 (7.35-7.45)
--- NOTE | 2019-02-10 18:20 | NUR ---
SUMMARY Pt is resting in bed, no longer agitated. Pt's grandma updated by Tomasa FLETCHER. No additional seizure activity noted since intubation. Pt responsive to pain/pressure. Gag and cough noted. Pt often sits up and tries to reach for ETT. Large amounts of tenacious, white sputum from in-line suction. OG tube in place, clamped. Will continue to closely monitor until care handoff and bedside report with oncoming RN.
[2019-02-10 19:25] LABS: Source, Urine Catheter
[2019-02-10 19:30] LABS: Bilirubin, Urine Neg (Neg); Blood, Urine 1+ (Neg); Glucose Qualitative, Urine Neg (Neg); Ketones, Urine 1+ (Neg); Leukocyte Esterase, Urine 1+ (Neg); Nitrite, Urine Neg (Neg); Protein, Urine 1+ (Neg); Urobilinogen, Urine NORM (Normal)
--- NOTE | 2019-02-10 19:30 | NUR ---
ASSUMED CARE OF PT, REPORT RCV'D FROM TERENCE, RN AND SHELLY RN. PT INTUBATED AND SEDATED IN SOFT RESTRAINTS X4. OGT CLAMPED, BITE BLOCK AND SEIZURE PADS IN PLACE. VENT SETTINGS AC 14/450/5/40%. SEDATION PROPOFOL 40 MCG/KG/MIN WITH PRECEDEX 0.4 MCG/KG/HR FOR AGITATION. NS @ 150 ML/HR, ALBUMIN BOTTLE 2/3 RUNNING. PT WITHDRAWS FROM PAIN AND FURROWS HIS EYEBROWS BUT FAILS TO FOLLOW COMMANDS AT THIS TIME. PT'S SISTER AND GIRLFRIEND AT BEDSIDE. PER PT'S FAMILY PT REGULARLY ABUSES ALCOHOL. PT LIVED WITH SISTER UNTIL 3-WEEKS AGO WHEN HE WAS ASKED TO LEAVE FOR "MAKING POOR DECISIONS". SISTER STATES THAT SINCE THAT TIME PT HAS REFUSED TO TAKE HIS PRESCRIBED LAMICTAL AND HAS BEEN HOMELESS. SEE ADMISSION HX AND SHIFT ASSESSMENT.
[2019-02-10 19:41] LABS: Appearance, Urine Clear (Clear); Color, Urine Yellow (P-Yellow)
[2019-02-10 19:44] LABS: Squamous Epithelial Cells Mod /hpf (Few)
[2019-02-10 19:45] LABS: Bacteria Rare /hpf
[2019-02-11 03:43] LABS: BASOPHILS ABSOLUTE AUTO 0.02 K/mm3 (0.00-0.23); BASOPHILS PERCENT AUTO 0 % (0-2); EOSINOPHILS ABSOLUTE AUTO 0.21 K/mm3 (0.00-0.68); EOSINOPHILS PERCENT AUTO 2 % (0-6); Hematocrit 43.4 % (37.0-53.0); Hemoglobin 14.6 g/dL (13.5-17.5); IMMATURE GRAN ABSOLUTE AUTO 0.02 K/mm3 (0.00-0.10); IMMATURE GRAN PERCENT AUTO 0 % (0-1); LYMPHOCYTES ABSOLUTE AUTO 0.84 K/mm3 (0.84-5.20); LYMPHOCYTES PERCENT AUTO 8 % (21-46); MONOCYTES ABSOLUTE AUTO 0.59 K/mm3 (0.16-1.47); MONOCYTES PERCENT AUTO 6 % (4-13); Mean Corpuscular HGB 31.3 pg (26.0-34.0); Mean Corpuscular HGB Conc 33.6 g/dL (31.5-36.5); Mean Corpuscular Volume 93 fL (80-100); Mean Platelet Volume 10.8 fL (9.1-12.4); NEUTROPHILS ABSOLUTE AUTO 8.62 K/mm3 (1.96-9.15); NEUTROPHILS PERCENT AUTO 84 % (41-73); Platelet Count 124 K/mm3 (150-400); RDW Coefficient Variation 13.1 % (11.7-14.2); RDW Standard Deviation 44.8 fL (35.1-46.3); Red Blood Cell Count 4.66 M/mm3 (4.30-5.90)
[2019-02-11 04:02] LABS: Alanine Aminotransfer (ALT/SGP 17 U/L (12-78); Albumin, Blood 3.7 g/dL (3.4-5.0); Albumin/Globulin Ratio 1.7 (0.8-1.8); Alk Phos 54 U/L (50-136); Anion Gap 6 mmol/L (6-16); Aspartate Aminotrans (AST/SGOT 11 U/L (12-37); Bilirubin, Total 0.9 mg/dL (0.1-1.0); Blood Urea Nitrogen 8 mg/dL (8-24); Bun/Creatinine Ratio 12.9 (12.0-20.0); CO2, Blood 25 mmol/L (21-32); CPK Creatine Kinase 105 U/L (39-308); Calcium, Blood 7.7 mg/dL (8.5-10.1); Chloride, Blood 113 mmol/L (98-108); Creatinine, Blood 0.62 mg/dL (0.60-1.20); Globulin, Blood 2.2 g/dL (2.2-4.0); Glomerular Filtration Rate >60 (60-); Glucose, Blood 97 mg/dL (70-99); Potassium, Blood 3.5 mmol/L (3.5-5.5); Sodium, Blood 144 mmol/L (136-145); Total Protein, Blood 5.9 g/dL (6.4-8.2)
--- NOTE | 2019-02-11 06:05 | NUR ---
SHIFT SUMMARY PT REMAINS SEDATED ON PROPOFOL 40 MCG/KG/MIN. PT RESPONDS TO PAINFUL STIMULI WITH FACIAL GRIMACE AND WITHDRAWING FROM PAIN. PT FAILS TO FOLLOW COMMANDS OR RESPOND TO VERBAL STIMULI. PT INTUBATED WITH VENT SETTINGS AC 16/450/5/30%. PT HAD PERIOD OF AGITATION D/T COUGHING AFTER R/T REMOVED BITE BLOCK AND RETAPED TUBE. PT ATTEMPTED TO SIT UP AND WAS TRYING TO KICK HIS FEET DESPITE RESTRAINTS. PT MEDICATED WITH 4MG VERSED AND SUCTIONED WITH GOOD RESULT. AFTER DISCUSSION WITH R/T IT WAS DECIDED TO FOREGO MORNING SEDATION VACATION AND WEAN D/T PT'S INCREASED O2 NEEDS AND INCREASED RESPIRATORY RATE IN RESPONSE TO AGITATION. PT REMAINS ON PRECEDEX 0.4 MCG/KG/HR. PT AFEBRILE AND VSS T/O SHIFT. WILL REPORT TO DAYSHIFT NURSE.
--- NOTE | 2019-02-11 07:30 | NUR ---
BEGINNING OF SHIFT Assumed care at 0700 with Tomasa FLETCHER. Bedside report received from Meng FLETCHER. Pt sits up in bed, pulls on restraints during oral care. Opens eyes only to painful stimulus. Pt does not follow directions. Propofol 40 mcg/kg/min, precedex 0.4 mcg/kg/hr. Versed IV push given for agitation. Pt on ventilator AC 16, vT 450, FiO2 30%, PEEP 5. Copious amounts of clear secretions from in-line suction. 8.0 cm ETT, 26 cm at upper teeth. [place] bite block and white bite block in place as pt has tendency to bite and compress bite block. No family in room at this time.
--- NOTE | 2019-02-11 10:28 | NUR ---
UPDATE At 0910, pt on 40 mcg/kg/min propofol and 0.4 mcg/kg/hr precedex. Pt sat up straight in bed, eyes open, pulling on restraints, attempting to reach for ETT tube. Pt tachypnic with RR between 32 and 36. 4 mg versed given for agitation. Pt relaxed back into bed. Dr Damon at bedside 0920. Plan of care discussed. Discussed pt's LOC and agitation despite sedating medications. Plans to continue with ordered medications. Plan to keep pt intubated due to polysubstance withdrawal and initiate tube feeds. This RN notified rand butting machine operator Meng, who states she will see pt shortly.
--- NOTE | 2019-02-11 14:33 | NUR ---
UPDATE No episodes of agitation since last note. Pt has been resting in bed without pulling on restraints or attempt to pull ETT. Pt has prolonged episodes of coughing with repositioning. Pt continues to have clear sputum from ETT, but not as much as at beginning of shift. Tube feedings started. 80 mL of liquid aspirated from OG tube and then reinstilled. 200 mL of air aspirated from OG tube. Pt has not had BM yet.
--- NOTE | 2019-02-11 17:00 | NUR ---
WHILE SEDATED AND INTUBATED PT THRUSTED HIMSELF FORWARD IN BED, GRABBING HIS ETT AND ATTEMPTING TO PULL IT OUT. PT'S EYES CLOSED ENTIRE TIME, UNABLE TO FOLLOW DIRCTIONS. RT AT BEDSIDE WITHIN SECONDS OF INCIDENT. ETT SECURE AND DID NOT MOVE, REMAINS 26CM AT UPPER TEETH. VERSED 4MG IVP GIVEN WITH GOOD EFFECT. DR SHORT NOTIFIED; JUVE VEST PLACED FOR PT'S SAFETY.
--- NOTE | 2019-02-11 18:30 | NUR ---
SUMMARY Pt tried to self-extubate while receiving propofol 40 mcg/kg/min and precedex 0.4 mcg/kg/hr. Pt found leaning forward in bed gripping ETT with restrained hand. ETT intact and remains 26 cm at upper teeth. Pt placed in vest restraint. Dr Damon notified. Orders given for versed drip. Precedex increased to 0.7 mcg/kg/hr. Versed drip started at 2 mg/hr. Pt is currently resting in bed without signs of agitation. Responsive to pain. Gag and cough reflexes present. No changes to ventilator settings. Pt is having mimimal secretions through ETT this evening. Tolerating continuous feeds well. Rate increased to 40 mL per hour. Will continue to closely monitor until care handoff and bedside report with oncoming RN.
--- NOTE | 2019-02-11 21:16 | NUR ---
ASSUMED CARE OF PT, REPORT RCV'D FROM JUSTINE PRATT. PT INTUBATED AND SEDATED. VENT SETTING AC 16/450/5/30% WITH SATS IN MID 90'S. LUNG SOUNDS CLEAR ON AUSCULTATION. PROPOFOL @ 40 MCG/KG/MIN, PRECEDEX @ 0.7 MCG/KG/HR, VERSED @2 MG/HR (4MLS/HR). PT WITHDRAWS FROM PAIN BUT FAILS TO FOLLOW COMMANDS LIKELY D/T LEVEL OF SEDATION. PT IN BILATERAL UPPER/LOWER SOFT RESTRAINTS AND JUVE VEST TO PREVENT SELF-EXTUBATION. PER DAYSHIFT PT BECAME AGITATED AND ATTEMPTED TO SELF-EXTUBATE THUS JUVE VEST ADDED AND SEDATION INCREASED. VHP @ 40 ML/HR WITH 50 ML/HR GOAL RATE. RESIDUALS @ BEGINNING OF SHIFT 180 ML, REINSTILLED. ABDOMEN SOFT WITH ACTIVE BOWEL TONES HEARD IN ALL 4 QUADRANTS. VSS. SEE FULL SHIFT ASSESSMENT.
--- NOTE | 2019-02-12 00:19 | NUR ---
INCREASED SEDATION D/T AGITATION FROM ETT SUCTIONING. PT ATTEMPTING TO SIT UP IN BED PULLING AGGRESSIVELY AT RESTRAINTS, DECREASED O2 SATS AND INCREASED RR. VERSED @ 4 MG/HR, PROPOFOL @ 50 MCG/KG/MIN. PT'S GIRLFRIEND AT BEDSIDE, UPDATED WITH PROGRESS AND PLAN OF CARE.
[2019-02-12 04:24] LABS: Albumin, Blood 2.9 g/dL (3.4-5.0); Anion Gap 6 mmol/L (6-16); Blood Urea Nitrogen 11 mg/dL (8-24); Bun/Creatinine Ratio 16.7 (12.0-20.0); CO2, Blood 24 mmol/L (21-32); Calcium, Blood 7.1 mg/dL (8.5-10.1); Chloride, Blood 114 mmol/L (98-108); Creatinine, Blood 0.66 mg/dL (0.60-1.20); Glomerular Filtration Rate >60 (60-); Glucose, Blood 99 mg/dL (70-99); Phosphorus, Blood 2.1 mg/dL (2.5-4.9); Potassium, Blood 3.4 mmol/L (3.5-5.5); Sodium, Blood 144 mmol/L (136-145)
[2019-02-12 04:28] LABS: BASOPHILS ABSOLUTE AUTO 0.02 K/mm3 (0.00-0.23); BASOPHILS PERCENT AUTO 0 % (0-2); EOSINOPHILS ABSOLUTE AUTO 0.22 K/mm3 (0.00-0.68); EOSINOPHILS PERCENT AUTO 2 % (0-6); Hematocrit 42.6 % (37.0-53.0); Hemoglobin 14.5 g/dL (13.5-17.5); IMMATURE GRAN ABSOLUTE AUTO 0.03 K/mm3 (0.00-0.10); IMMATURE GRAN PERCENT AUTO 0 % (0-1); LYMPHOCYTES ABSOLUTE AUTO 0.69 K/mm3 (0.84-5.20); LYMPHOCYTES PERCENT AUTO 6 % (21-46); MONOCYTES ABSOLUTE AUTO 0.53 K/mm3 (0.16-1.47); MONOCYTES PERCENT AUTO 5 % (4-13); Mean Corpuscular HGB 31.7 pg (26.0-34.0); Mean Corpuscular Volume 93 fL (80-100); Mean Platelet Volume 10.4 fL (9.1-12.4); NEUTROPHILS ABSOLUTE AUTO 9.68 K/mm3 (1.96-9.15); NEUTROPHILS PERCENT AUTO 87 % (41-73); Platelet Count 118 K/mm3 (150-400); RDW Coefficient Variation 13.1 % (11.7-14.2); Red Blood Cell Count 4.57 M/mm3 (4.30-5.90); White Blood Cell Count 11.17 K/mm3 (4.00-11.30)
--- NOTE | 2019-02-12 04:34 | NUR ---
PT BECAME EXTREMELY AGITATED THRASHING HIS HEAD BACK AND FORTH, PULLING ON BLE/BUE RESTRAINTS, ATTEMPTING TO SIT UP IN BED AND PUSHING BITE BLOCK OUT OF HIS MOUTH. REMINDED PT THAT HE WAS IN THE HOSPITAL, PT'S EYES OPEN BUT IS NOT FOLLOWING COMMANDS. PROPOFOL INCREASED TO 50 MCG/KG/MIN, PRECEDEX 0.9 MCG/KG/MIN AND VERSED @ 6 MG/HR.
--- NOTE | 2019-02-12 04:47 | NUR ---
PT'S RHYTHM STRIP SHOWED ST ELEVATION, PERFORMED EKG THAT SHOWED "NORMAL EKG".
--- NOTE | 2019-02-12 06:23 | NUR ---
SHIFT SUMMARY PT REMAINS INTUBATED WITH VENT SETTINGS AC 16/450/5/30%. PROPOFOL @ 50 MCG/KG/MIN, VERSED @ 6 MG/HR, PRECEDEX 0.9 MCG/KG/HR AND NS @ 75 ML/HR. PT EASILY AGITATED AND IMMEDIATELY BEGINS THRASHING AROUND, REACHES FOR ET TUBE AND PULLS AT RESTRAINTS. PT REMAINS AFEBRILE BUT IS DIAPHORETIC. LUNG SOUNDS INTERMITTENTLY COARSE WITH EXPIRATORY WHEEZES. MODERATE AMOUNTS OF THICK WHITE SECRETIONS SUCTIONED FROM ET TUBE. VHP @ GOAL RATE OF 50 ML/HR WITH RESIDUALS OF 180/200/180. 400 ML OF DARK DONAL URINARY OUTPUT FROM GONZALEZ. SEE ALL PREVIOUS NOTES FROM THIS SHIFT. WILL REPORT TO DAYSHIFT NURSE.
--- NOTE | 2019-02-12 07:33 | NUR ---
ASSUMED CARE REPORT FROM JUSTINE CANO. PATIENT INTUBATED, IN 4 POINT RESTRAINTS. SEDATED ON PROPOFOL AT 50 MCG/KG/MIN, VERSED GTT 6 MG/HR AND PRECEDEX 0.9 MCG/KG/HR. TF AT GOAL 50 ML/HR. NS 75/HR. GIRLFRIEND ASLEEP IN ROOM
--- NOTE | 2019-02-12 18:17 | NUR ---
PATIENT HAS BEEN WELL SEDATED ON COMBINATION PROPOFOL, VERSED AND PRECEDEX. NO FENTANYL GIVEN. VSS. TURNED Q2 HOURS, ORAL CARE Q4 HOURS.
--- NOTE | 2019-02-12 19:49 | NUR ---
ASSUMED CARE RECIEVED REPORT FROM ANABELLA FLETCHER. PT IS INTUBATED ON VENT; AC16/450/5/30%. PT HAS A JACKIE OF 3 CURRENTLY SEDATED WITH PROPOFOL 50MCG/KG/MIN, PRECEDEX 0.9MCG/KG/HR, AND VERSED AT 6MG/HR. NS IS ALSO INFUSING AT 75ML/HR. PT IS HEMODYNAMICALLY STABLE. TUBE FEEDING IS ON AT 50ML/HR OF VITAL HIGH PROTEIN WITH Q4H 30ML FLUSHES. PT HAS A PATENT AND DRAINING GONZALEZ BAG. SCD'S ARE ON BILATERAL CALVES, AND SWB RESTRAINTS ARE ON ALL EXTREMETIES; SECURED TO THE BED. BED IS LOW AND LOCKED. NO FAMILY/VISITORS AT BEDSIDE.
--- NOTE | 2019-02-12 23:29 | NUR ---
UPDATE NO ACUTE CHANGES AT THIS TIME. PT CRUISING AT A JACKIE OF 3, WITH MOMENTS OF COUGHING/SLIGHT AGITATION WHEN BATHED AND REPOSITIONED. UPDATED BRADEN HOWARD ABOUT PT'S CONDITION. BED LOW AND LOCKED. SWB RESTRAINTS SECURED ON ALL FOUR EXTREMETIES TO BED.
--- NOTE | 2019-02-13 01:28 | NUR ---
UPDATE PT HAD 360ML OF RESIDUALS, FORMULA COLORED. 250ML REINSTILLED, AND 110ML DISCARDED. TUBE FEEDING IS ON STANDBY. WILL CHECK IN ONE HOUR.
--- NOTE | 2019-02-13 02:45 | NUR ---
UPDATE RECHECK OF RESIDUALS CAME TO 250ML OF FORMULA COLORED RESIDUAL. PER ORDERS, 250ML WAS DISCARDED AND RATE OF VHP TUBE FEED TURNED DOWN TO 25ML/HR.
[2019-02-13 05:04] LABS: BASOPHILS ABSOLUTE AUTO 0.02 K/mm3 (0.00-0.23); BASOPHILS PERCENT AUTO 0 % (0-2); EOSINOPHILS ABSOLUTE AUTO 0.07 K/mm3 (0.00-0.68); EOSINOPHILS PERCENT AUTO 1 % (0-6); Hematocrit 40.6 % (37.0-53.0); IMMATURE GRAN ABSOLUTE AUTO 0.08 K/mm3 (0.00-0.10); IMMATURE GRAN PERCENT AUTO 1 % (0-1); LYMPHOCYTES ABSOLUTE AUTO 0.52 K/mm3 (0.84-5.20); LYMPHOCYTES PERCENT AUTO 4 % (21-46); MONOCYTES ABSOLUTE AUTO 0.76 K/mm3 (0.16-1.47); MONOCYTES PERCENT AUTO 6 % (4-13); Mean Corpuscular HGB Conc 34.5 g/dL (31.5-36.5); Mean Corpuscular Volume 93 fL (80-100); Mean Platelet Volume 10.9 fL (9.1-12.4); NEUTROPHILS ABSOLUTE AUTO 10.42 K/mm3 (1.96-9.15); NEUTROPHILS PERCENT AUTO 88 % (41-73); Platelet Count 118 K/mm3 (150-400); RDW Coefficient Variation 13.2 % (11.7-14.2); RDW Standard Deviation 45.1 fL (35.1-46.3); Red Blood Cell Count 4.37 M/mm3 (4.30-5.90); White Blood Cell Count 11.87 K/mm3 (4.00-11.30)
[2019-02-13 05:20] LABS: Albumin, Blood 2.6 g/dL (3.4-5.0); Anion Gap 6 mmol/L (6-16); Blood Urea Nitrogen 12 mg/dL (8-24); Bun/Creatinine Ratio 17.6 (12.0-20.0); CO2, Blood 25 mmol/L (21-32); Calcium, Blood 7.6 mg/dL (8.5-10.1); Chloride, Blood 112 mmol/L (98-108); Creatinine, Blood 0.68 mg/dL (0.60-1.20); Glomerular Filtration Rate >60 (60-); Glucose, Blood 109 mg/dL (70-99); Phosphorus, Blood 2.7 mg/dL (2.5-4.9); Potassium, Blood 3.6 mmol/L (3.5-5.5); Sodium, Blood 143 mmol/L (136-145)
--- NOTE | 2019-02-13 06:34 | NUR ---
SHIFT SUMMARY PT REMAINS ON VENT WITH 8.0 ETT, 25 @ LIP; WITH SETTINGS OF AC16/450/5/35%. PT WAS SEDATED ALL NIGHT WITH JACKIE OF 3 AND CNVI OF 0 MAJORITY OF SHIFT. REPOSITIONING/ORAL CARE/&BATH CAUSED SLIGHT AGITATION AND RESTLESSNESS, BUT ONLY A MODERATE AMOUNT. FENTANYL WAS GIVEN PRN X 2 DOSES OVERNIGHT AND DID GREAT. PT HAS BEEN IN NSR WITH A RATE OF 70 - LOW 90'S; NORMOTENSIVE (SLIGHTLY SOFT AT TIMES, BUT MAY BE POSITIONAL). DISTANT HEART SOUNDS. PT HAS BEEN COUGHING UP A MODERATE AMOUNT OF THICK, YELLOW/GREEN SPUTUM; BUT LUNG SOUNDS ARE CLEAR AND SLIGHTLY DIMINISHED. NO BM OVERNIGHT, HYPOACTIVE BS, WITH A SOFT, NONTENDER ABDOMEN. PT HAD 825ML OUT OF HER GONZALEZ OF DARK GREEN URINE. PT ALSO HAD 1480ML OF IVF, WITH A GAIN IN WEIGHT OF 5.8KG SINCE ADMISSION. PT HAD ONE ABNORMAL EVENT. AROUND 0530 I WALKED INTO ROOM AND SAW PT VERY DIAPHORETIC (ALSO CONTINUING TO BE FLUSHED IN THE CHEST/NECK/&FACE). SHEETS WERE CLOSE TO FULLY BEING SATURATED IN HIS SWEAT. LINEN WAS CHANGED, AND TEMPERATURE TAKEN: 98.3F. PT STARTED SHIFT WITH A LOW GRADE FEVER OF 99.5, BUT HAS BEEN WITHIN 98F MAJORITY OF NIGHT. 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 BED IS LOW AND LOCKED. SWB RESTRAINTS X 4 EXTREMETIES SECURED TO PT AND BED. SCD'S IN PLACE ALL NIGHT.
--- NOTE | 2019-02-13 08:00 | NUR ---
ASSUMED CARE 0700 REPORT FROM JUSTINE PRIETO. VERSED LIGHTENED TO 4 MG/HR. AND THEN BACK UP TO 6 MG/HR FOR ASYNCHRONY WITH VENT. PROPOFOL CONTINUES AT 50 MCG/KG/MIN AND PRECEDEX AT 0.9 MCG/KG/HR. TF AT 25 ML/HR FOR HIGH RESIDUALS ON PREVIOUS SHIFT.
--- NOTE | 2019-02-13 08:03 | NUR ---
MD VISIT DR. VILLEGAS IN. ORDERS FOR CXR AND REGLAN.
--- NOTE | 2019-02-13 09:11 | NUR ---
VERSED GTT OFF. FENTANYL 100 MCG IV GIVEN
--- NOTE | 2019-02-13 09:22 | NUR ---
MD VISIT DR. PERRY IN. ORDER TO TKO IVF AND MINIMIZE BENZO'S.
--- NOTE | 2019-02-13 10:24 | NUR ---
PATIENT PULLING ON RESTRAINTS, TRYING TO SIT UP. PRECEDEX TO 1.4 MCG/KG/HR
--- NOTE | 2019-02-13 17:34 | NUR ---
SUMMARY: PATIENT HAS REMAINED SEDATED ON PRECEDEX 1.4 MCG/KG/HR AND PROPOFOL 50 MCG/KG/MIN. VERSED GTT IS DISCONTINUED. MEDICATED TWICE DURING SHIFT WITH 100 MCG IV FENTANYL. TF UP TO 35 ML/HR (GOAL 50 ML/HR). REGLAN GIVEN AND MIRALAX GIVEN. NO STOOL YET. NS KVO'D. 1250 URINE OUT FOR SHIFT.
--- NOTE | 2019-02-13 19:20 | NUR ---
ASSUMED CARE PT INTUATED AND SEDATED, VENT SETTINGS AT AC16/450/5/30%. SEDATION VIA PROPOFOL AT 50MCG/KG/MIN AND PRECEDEX AT 1.4MCG/KG/HR. PT RESPONDS TO VOICE BY OPENING EYES AND MOVING HEAD IN DIRECTION OF VOICE BUT IS NOT FOLLOWING ANY COMMANDS. SKIN IS CLAMMY TO HEAD AND CHEST; PLAN TO MEDICATE PER ORDERS. TF OF VITAL HIGH PROTEIN AT 35ML/HR WITH GOAL OF 50ML/H BUT PT HAS HAD ELEVATED RESIDUALS; 150ML AT THIS ASSESSMENT. NO FAMILY PRESENT IN ROOM.
--- NOTE | 2019-02-14 04:30 | NUR ---
SBT PROPOFOL DOWN TO 30MCG/KG/MIN, PRECEDEX UNCHANGED FOR SBT. PT WAKES UP RAPIDLY, FOLLOWS DIRECTIONS AND NODS HEAD IN RESPONSE TO YES/NO QUESTIONS. RT TO ROOM VENT CHANGED TO P/S 7/0 FIO2 30%. PT TOLERATED SBT WELL, RR IN THE 20'S, vT'S >300-600 AND STABLE SPO2. SBT COMPLETED AFTER 30 MINUTES, AND PT INDICTIONS OF ANXIETY RESEDATED-SEE ICU FLOW SHEET FOR DETAILS.
[2019-02-14 04:56] LABS: BASOPHILS ABSOLUTE AUTO 0.02 K/mm3 (0.00-0.23); BASOPHILS PERCENT AUTO 0 % (0-2); EOSINOPHILS ABSOLUTE AUTO 0.21 K/mm3 (0.00-0.68); EOSINOPHILS PERCENT AUTO 2 % (0-6); Hematocrit 40.1 % (37.0-53.0); Hemoglobin 13.5 g/dL (13.5-17.5); IMMATURE GRAN ABSOLUTE AUTO 0.04 K/mm3 (0.00-0.10); IMMATURE GRAN PERCENT AUTO 0 % (0-1); LYMPHOCYTES ABSOLUTE AUTO 0.49 K/mm3 (0.84-5.20); LYMPHOCYTES PERCENT AUTO 5 % (21-46); MONOCYTES PERCENT AUTO 8 % (4-13); Mean Corpuscular HGB 31.7 pg (26.0-34.0); Mean Corpuscular HGB Conc 33.7 g/dL (31.5-36.5); Mean Corpuscular Volume 94 fL (80-100); Mean Platelet Volume 11.1 fL (9.1-12.4); NEUTROPHILS ABSOLUTE AUTO 8.83 K/mm3 (1.96-9.15); NEUTROPHILS PERCENT AUTO 85 % (41-73); Platelet Count 122 K/mm3 (150-400); RDW Coefficient Variation 13.3 % (11.7-14.2); RDW Standard Deviation 45.9 fL (35.1-46.3); Red Blood Cell Count 4.26 M/mm3 (4.30-5.90); White Blood Cell Count 10.39 K/mm3 (4.00-11.30)
[2019-02-14 05:12] LABS: Albumin, Blood 2.5 g/dL (3.4-5.0); Anion Gap 5 mmol/L (6-16); Blood Urea Nitrogen 11 mg/dL (8-24); Bun/Creatinine Ratio 18.9 (12.0-20.0); CO2, Blood 26 mmol/L (21-32); Calcium, Blood 7.8 mg/dL (8.5-10.1); Chloride, Blood 111 mmol/L (98-108); Creatinine, Blood 0.58 mg/dL (0.60-1.20); Glomerular Filtration Rate >60 (60-); Glucose, Blood 124 mg/dL (70-99); Phosphorus, Blood 2.7 mg/dL (2.5-4.9); Potassium, Blood 3.9 mmol/L (3.5-5.5); Sodium, Blood 142 mmol/L (136-145)
--- NOTE | 2019-02-14 06:14 | NUR ---
SHIFT SUMMARY SEE PREVIOUS NOTE RE: SBT. NO CHANGES TO PREVIOUSLY NOTED VENT SETTINGS, PROPOFOL AT 45MCG/KG/MIN AND PRECEDEX AT 1.4MCG/KG/HR. PT HAS BEEN MEDICATED WITH BOTH FENTANYL AND VERSED. PT WILL BECOME VERY DIAPHORETIC, BUT THIS CLEARS WITH MEDICATION AND FAN. TF REMAINS BELOW GOAL D/T HIGH RESIDUALS AROUND 200ML WITH EACH CHECK, HYPOACTIVE BT AND NO BM. UOP ADEQUATE AND URINE IS DARK GREEN. VSS, ECG SHOWS SR AND O2 SATS MID 90'S.
--- NOTE | 2019-02-14 07:30 | NUR ---
INITIAL ASSESSMENT PATIENT INTUBATED AND SEDATED. PATIENT DIAPHORETIC, SKIN FLUSHED TO FACE AND CHEST. PATIENT AGITATED UPON FIRST ENTERING ROOM AND TRYING TO GRAB AT ETT. PATIENT FOLLOWING SOME SIMPLE COMMANDS LIKE SQUEEZING HANDS AND MOVING FEET. PATIENT TOO AGITATED AT THIS TIME TO FOLLOW ANY OTHER COMMANDS. PATIENT HAS GOOD STRENGTH. PATIENT GIVEN PRN FENTANYL AND VERSED TO HELP WITH PAIN AND AGITATION. PATIENT AFEBRILE. PATIENT ON VENT SETTINGS OF AC 16, TV 450, PEEP 5, 30% FIO2. LUNGS CLEAR IN UPPER LOBES AND DIMINISHED IN LOWER LOBES. COPIOUS AMOUNT OF THICK/ FROTHY, CREAMY YELLOW SECRETIONS BEING SUCTIONED FROM ETT. PATIENT BEING SUCTIONED QUITE FREQUENTLY FOR LARGE AMOUNT OF SECRETIONS. PATIENT IN SR, HR IN THE 80S. BP STABLE. ABDOMEN SOFT, NONTENDER, NONDISTENDED, WITH HYPOACTIVE BS NOTED. OG IN PLACE. RESIDUAL OF 175 MLS OBTAINED AND REINSTILLED. VHP TF INCREASED TO GOAL RATE OF 50 MLS/ HOUR WITH 30 ML WATER FLUSH Q4H. PATIENT HAS NO DOCUMENTED BM SINCE ADMISSION. GONZALEZ IN PLACE AND DRAINING GREEN COLORED URINE. PATIENT HAS SCATTERED SCABS AND SCARS NOTED T/O BODY. SLIGHT NONPITTING SCROTAL EDEMA NOTED. PROPOFOL INFUSING AT 45 MCG/ KG/ MINUTE, PRECEDEX AT 1.4 MCG/ KG/ HOUR, NS TKO. BED LOW, CALL LIGHT IN REACH. WILL CONTINUE TO MONITOR PATIENT FREQUENTLY THROUGHOUT SHIFT.
--- NOTE | 2019-02-14 08:00 | NUR ---
DR. VILLEGAS AND DR. PERRY BOTH IN TO SEE PATIENT THIS AM. BOTH DOCTORS INFORMED THAT NURSE RECEIVED REPORT THAT PATIENT DID WELL ON AM WEAN; THAT PATIENT ABLE TO REMAIN CALM AND FOLLOW COMMMANDS ON WEAN WHILE PRECEDEX AT 1.4 MCG/ KG/ HOUR AND PROPOFOL AT 45 MCG/ KG/ MINUTE. INFORMED THAT PATIENT IS HAVING A COPIOUS AMOUNT OF ORAL SECRETIONS AND IS REQUIRING FREQUENT SUCTIONING. INFORMED THAT NIGHT RN REPORTED THAT TF RESIDUALS 200 TO 225 DURING NIGHT AND THAT PATIENT HAS HYPOACTIVE BS. INFORMED THAT PATIENT HAS NOT HAD BM SINCE ADMIT BUT IS RECEIVING SCHEDULED MIRALAX DAILY. INFORMED THAT PATIENT DIAPHORETIC OFF AND ON DURING INDOOR PLANT TECHNICIAN AND THIS AM.
--- NOTE | 2019-02-14 12:15 | NUR ---
PATIENT REMAINS AFEBRILE. PATIENT REMAINS SATTING 90% AND GREATER ON SAME VENT SETTINGS. PATIENT CONTINUES TO HAVE COPIOUS AMOUNT OF ORAL AND ETT SECRETIONS. TF RESIDUAL OF 150 MLS OBTAINED AND REINSTILLED. TF INFUSING AT NEW GOAL RATE OF 20 MLS/ HOUR. PATIENT REMAINS IN SR, HR 80S TO 90S. BP REMAINS STABLE. FENTANYL RESEARCH/PROGRAM DIRECTOR PUMP INFUSING AT 25 MCG/ HOUR TO HELP WITH AGITATION AND S/S OF PAIN. PROPOFOL DRIP DECREASED TO 40 MCG/ KG/ MINUTE. NO OTHER ACUTE CHANGES TO NOTE ON AT THIS TIME. WILL CONTINUE TO MONITOR.
--- NOTE | 2019-02-14 14:05 | NUR ---
1345: PATIENT BECAME VERY AGITATED, TRYING TO GRAB AT ETT, FLOPPING AROUND IN BED. MULTIPLE NURSES IN ROOM TO TRY AND KEEP PATIENT FROM GRABBING AT ETT. RT CALLED TO ROOM CUFF SOUNDS LIKE IT HAS BEEN BLOWN. 1347: TWO RTS TO ROOM. CONFIRM THAT CUFF HAS BEEN BLOWN. DR. PERRY CALLED AND INFORMED. INSTRUCTED TO EXTUBATE AND PLACE ON BIPAP. 1358: DR. PERRY TO PATIENT ROOM. 1401: PATIENT EXTUBATED AND PLACED ON 6 L NC AND NONREBREATHER MASK. 1410: PATIENT SATTING 91% ON 6 L NC.
--- NOTE | 2019-02-14 14:45 | NUR ---
PATIENT DECREASED TO 4 L NC- REMAINS SATTING 90% AND GREATER.
--- NOTE | 2019-02-14 16:15 | NUR ---
PATIENT ALERT AND ORIENTED EXCEPT TO MONTH AND DAY. PATIENT AFEBRILE. PATIENT COOPERATIVE, HOWEVER IMPULSIVE, EMOTIONAL, ANXIOUS, TEARFUL. PATIENT REMAINS IN RESTRAINTS TO PROTECT LINES AND CORDS. RESTRAINTS ARE SLIGHTLY LOOSENED SO PATIENT IS ABLE TO SUCTION WHAT HE COUGHS UP- PATIENT IS TOLERATING WELL. PATIENT SATTING 90% AND GREATER ON 2 L NC. PATIENT REMAINS IN NSR, HR IN THE 80S. BP STABLE. OG REMOVED WHEN PATIENT EXTUBATED. TF OFF. GONZALEZ REMAINS DRAINING ADEQUATE AMOUNT OF GREEN URINE. PRECEDEX INFUSING AT 1 MCG/ KG/ HOUR AND NS TKO. WILL CONTINUE TO MONITOR.
--- NOTE | 2019-02-14 18:40 | NUR ---
CLEARED 6 MLS FENTANYL VETERINARY SURGERY TECHNICIAN. WASTED 23.9 MLS WITH SHELLY JESSICA RN.
--- NOTE | 2019-02-14 19:09 | NUR ---
SHIFT SUMMARY PATIENT INTUBATED AND ON SEDATION AT BEGINNING OF SHIFT. PATIENT EXTUBATED AT 1400 AFTER CUFF BLOWN FROM PATIENT BITING ON BALLOON TUBE. PATIENT HAS REMAINED COUGHING FREQUENTLY SINCE AND IS CLEARING OWN AIRWAY AND SUCTIONING SECRETIONS. PATIENT SATTING 90% AND GREATER ON RA AT THIS TIME. PATIENT IS ORIENTED EXCEPT TO MONTH AND DAY. PATIENT IS ANXIOUS BUT HAS REMAINED COOPERATIVE. RESTRAINTS ABLE TO BE DC'D AT 1800 PATIENT COOPERATIVE AND NOT TRYING TO GRAB AT IMPORTANT MONITORING LINES AND CORDS. PATIENT REMAINED IN SR, HR 80S TO 90S. BP STABLE. OG AND TF DC'D AFTER EXTUBATION. REGLAN STARTED TID. NO BM THIS SHIFT. GONZALEZ DRAINING LARGE AMOUNTS OF GREEN URINE. 20 MG IV LASIX GIVEN THIS SHIFT. NO CHANGE IN SKIN. PATIENT ASSISTING WITH REPOSITIONING. PRECEDEX INFUSING AT 1.4 MCG/ KG/ HOUR, NS TKO. SPEECH THERAPY ORDERED FOR SWALLOW EVAL IN AM. PT AND SS ORDERED WELL. PATIENT CURRENTLY HAS NO COMPLAINTS. BED LOW, CALL LIGHT IN REACH. REPORT HAS BEEN GIVEN TO ASSUMING COCOA PRESS OPERATOR NURSE.
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
[2019-02-15 04:58] LABS: BASOPHILS ABSOLUTE AUTO 0.02 K/mm3 (0.00-0.23); BASOPHILS PERCENT AUTO 0 % (0-2); EOSINOPHILS ABSOLUTE AUTO 0.18 K/mm3 (0.00-0.68); EOSINOPHILS PERCENT AUTO 2 % (0-6); IMMATURE GRAN ABSOLUTE AUTO 0.04 K/mm3 (0.00-0.10); IMMATURE GRAN PERCENT AUTO 1 % (0-1); LYMPHOCYTES ABSOLUTE AUTO 0.45 K/mm3 (0.84-5.20); LYMPHOCYTES PERCENT AUTO 5 % (21-46); MONOCYTES ABSOLUTE AUTO 0.82 K/mm3 (0.16-1.47); MONOCYTES PERCENT AUTO 10 % (4-13); Mean Corpuscular HGB Conc 33.3 g/dL (31.5-36.5); Mean Corpuscular Volume 93 fL (80-100); NEUTROPHILS PERCENT AUTO 82 % (41-73); Platelet Count 116 K/mm3 (150-400); RDW Coefficient Variation 13.2 % (11.7-14.2); RDW Standard Deviation 45.1 fL (35.1-46.3); Red Blood Cell Count 4.52 M/mm3 (4.30-5.90); White Blood Cell Count 8.51 K/mm3 (4.00-11.30)
[2019-02-15 05:23] LABS: Anion Gap 10 mmol/L (6-16); Blood Urea Nitrogen 13 mg/dL (8-24); Bun/Creatinine Ratio 22.1 (12.0-20.0); CO2, Blood 25 mmol/L (21-32); Calcium, Blood 8.3 mg/dL (8.5-10.1); Chloride, Blood 108 mmol/L (98-108); Creatinine, Blood 0.59 mg/dL (0.60-1.20); Glomerular Filtration Rate >60 (60-); Glucose, Blood 90 mg/dL (70-99); Potassium, Blood 3.7 mmol/L (3.5-5.5); Sodium, Blood 143 mmol/L (136-145)
--- NOTE | 2019-02-15 06:17 | NUR ---
SHIFT SUMMARY NO ACUTE EVENTS OVERNIGHT. PT REMAINS ALERT TO ALL BUT DATE, HAS BEEN CRYING OCCASIONALLY BUT HAS BEEN COOPERATIVE WITH CARE. O2 ON AT 3L/NC, PT CONTINUES TO HAVE A HARSH, PRODUCTIVE COUGH THAT HE IS MANAGING WELL WITH SUCTION. PRECEDEX OFF SINCE 0300 AND PT TOLERATING WELL. THIS AM PT HAD A LARGE BM ON BEDPAN. PT REMAINS NPO FOR SWALLOW EVAL TODAY, ORAL CARE HAS BEEN COMPLETED Q4HRS. VSS, ECG SHOWS SR WITH QTC <0.50, O2 SATS MID 90'S.
--- NOTE | 2019-02-15 07:20 | NUR ---
START OF SHIFT NOTE: RECEIVED REPORT FROM TERRI BELTRAN, ASSUMED CARE, PATIENT IS AWAKE AND CONTINUOUSLY COUGHING UP THICK WHITE SECRETIONS, ABLE TO CLEAR THEM, PATIENT IS ALERT AND ABLE TO FOLLOW COMMANDS AND ANSWER QUESTIONS, A LITTLE SLOW TO RESPOND, AFEBRILE, DENIES PAIN AT THIS TIME, SITTING UP IN BED, ALL IV FLUIDS/MEDICATIONS ARE ON STANDBY, LUNG SOUNDS ARE DIMINISHED AND WHEEZY, ST WITH HR IN LOW 100'S, BLOOD PRESSURES WNL, GONZALEZ CATHETER IN PLACE DRAINING TEA COLORED URINE, DR. VILLEGAS IN TO SEE PATIENT, NO NEW ORDERS RECEIVED AT THIS TIME, CALL LIGHT IN REACH, WILL CONTINUE TO MONITOR.
--- NOTE | 2019-02-15 09:44 | NUR ---
PATIENT SWALLOWED AM MEDS WELL, CRUSHED WITH APPLESAUCE, NO PROBLEM, PATIENT RECEIVED COMPLETE BED BATH AND WAS TRANSFERRED TO CHAIR WITH TWO ASSIST, PATIENT IS EXTREMELY WEAK AT THIS TIME, PATIENT STATED "DID YOU SEE MY LEGS WERE SHAKING", ABLE TO TAKE 2-3 STEPS WITH 2 ASSIST, PATIENT IS VERY COOPERATIVE AND APPRECIATIVE, CONTINUES TO COUGH UP THICK WHITE SECRETIONS, AWAITING SPEECH FOR SWALLOW EVAL., CALL LIGHT IN REACH, WILL CONTINUE TO MONITOR.
--- NOTE | 2019-02-15 10:16 | NUR ---
DR. BOBBY IN TO SEE PATIENT, NEW ORDERS RECEIVED.
--- NOTE | 2019-02-15 10:31 | NUR ---
PT IN TO WORK WITH PATIENT.
--- NOTE | 2019-02-15 11:13 | NUR ---
SPEECH IN TO WORK WITH PATIENT, EVALUATE ABILITY TO SWALLOW.
--- NOTE | 2019-02-15 12:49 | NUR ---
ALIYAH, IMAGING, IN TO DO ORDERED ECHO. PATIENT WAS MOVED BACK TO BED WITH WALKER AND 2 ASSIST, DID WELL.
--- NOTE | 2019-02-15 13:00 | NUR ---
OT IN TO WORK WITH PATIENT, DOING WELL, UP IN CHAIR AGAIN, TOLERATING WELL.
--- NOTE | 2019-02-15 16:03 | NUR ---
PATIENT WAS RETURNED TO BED, GAIT BELT AND WALKER, PATIENT ABLE TO FOLLOW COMMANDS AND ABLE TO SLOWLY WALK FROM CHAIR TO BED, ATTENDS CHANGED, SPONGE BATH GIVEN, CALL LIGHT IN REACH, WILL CONTINUE TO MONITOR.
--- NOTE | 2019-02-15 16:05 | NUR ---
PATIENT RESTING AFTER RECEIVING TWO NORCO, REPORTED LESS PAIN, NORCE EFFECTIVE, ALL LIGHT IN REACH, WILL CONTINUE TO MONITOR.
--- NOTE | 2019-02-15 17:55 | NUR ---
SHIFT SUMMARY NOTE: NO ACUTE EVENTS, PATIENT WAS MOVED FROM ICU TO PCU, WORKED WITH PT/OT/AND SPEECH, ON A REGULAR DIET, HAS NO PROBLEM SWALLOWING, HOWEVER, LARGE AMOUNT OF SECRETIONS, USES SUCTION AFTER COUGHING SPELLS, PATIENT IS ALERT AND ORIENTED BUT VERY SLOW TO RESPOND, NO IVF INFUSING, SALINE LOCKED, PATIENT USES ATTENDS AT THIS TIME, INCONTINENT D/T INABILITY TO GET OUT OF BED FAST OF GET URINAL FAST, VSS, DENIES PAIN, AFEBRILE, CALL LIGHT IN REACH, WILL CONTINUE TO MONITOR, AND GIVE REPORT TO ONCOMING BAKERY DECORATOR.
--- NOTE | 2019-02-15 20:46 | NUR ---
ASSUMED CARE OF PATIENT AT APPROXIMATELY 1900 FROM HUONG Lara RN. PATIENT ALERT AND ORIENTED X4; SLOW TO RESPOND. PATIENT PARANOID; REPORTS HE WASN'T GOING TO FINISH HIS DINNER BECAUSE HE BELIEVES THERE ARE MEDICATIONS IN HIS FOOD. PATIENT CONTINUOUSLY COUGHING UP THICK WHITE SECRETIONS; REPORTS THE AMOUNT OF SECRETIONS HAS NOT DECREASED; REPORTS SOB HAS NOT DECREASED EITHER. PATIENT DENIES PAIN, NUMNBESS, TINGLING, DIZZINESS AND NAUSEA. PG AND 2X PIV S/L. REPORTED PATIENT IS INCONTINENT OF URINE AND WILL CALL WHEN HIS ATTENDS NEEDS TO BE CHANGED. SINUS TACHYCARIDA ON TELE; OXYGEN SATURATION ABOVE 90% ON 3LPM VIA NC. PATIENT CURRENTLY RESTING IN BED; CALL LIGHT IN REACH; BED IN LOWEST POSISTION; BED ALARM ON; WILL CONTINUE TO MONITOR AND ASSESS UNTIL END OF SHIFT.
--- NOTE | 2019-02-16 00:05 | NUR ---
NO ACUTE CHANGES TO REPORT. REPORT GIVEN TO KALEB Lyn RN.
--- NOTE | 2019-02-16 00:30 | NUR ---
ASSUMED CARE PT RESTING QUIETLY, AWAKENED WHEN TAKING VITALS. PT WITH NO COMPLAINTS AT THIS TIME. VSS. WILL CONTINUE TO MONITOR.
--- NOTE | 2019-02-16 03:29 | NUR ---
AGITATION/CODE GORDON THIS RN RESPONDED TO BED ALARM IN PT ROOM. PT FOUND TO BE STANDING AT BEDSIDE, AND TANGLED IN LINES/TUBES. PT CONFUSED, DISORIENTED, AND STARTED TO FALL OVER. PT CAUGHT AND BLANCE STABILIZED. PT STARTED TO GET AGGRESSIVE AND AGITATED WITH STAFF. PT REFUSING TO SIT BACK DOWN IN BED. MULTIPLE STAFF MEMEBERS IN ROOM AT THIS TIME. PT SWINGING ARMS AT STAFF AND YELLING NONSENSICALLY. SATNAM GORDON CALLED, SECURITY IN ROOM TO ASSIST PT BACK TO BED. PT CONTINUES TO BE AGITATED AND TREATENING. PT PLACED IN JUVE VEST AND SOFT WRIST AND ANKLE RESTRAINTS. BED ALARM ON. WILL CONTINUE TO MONITOR.
--- NOTE | 2019-02-16 04:16 | NUR ---
CONTINUED AGGRESSION/CALL TO DR SIDDIQUI ATTEMPTED TO TAKE VITAL SIGNS AND DRAW LABS. PT IS AGITATED, PULLING AT RESTRAINTS AND HAS HEART MONITOR DISCONNECTED AND THREATENING TO THROW IT AT STAFF. ATTEMPTED TO SEE IF PT HAS ANY UNMET NEEDS OR DISCOMFORTS AT THIS TIME. PT CONTINUES TO REPEAT "PLEASE LEAVE MY ROOM" HE IS AGGRESSIVELY PULLING AT RESTRAINTS AND HOLDING HEART MONITOR. DR SIDDIQUI INFORMED OF PT BEHAVIOUR. OK TO HOLD OF ON LABS AND VITAL SIGNS AT THIS TIME. WILL CONTINUE TO MONITOR.
--- NOTE | 2019-02-16 05:56 | NUR ---
SHIFT SUMMARY SEE PREVIOUS SHIFT NOTES FOR MORE SHIFT INFO. PT REMAINS AGITATED AND IN JUVE VEST AND SOFT WRIST AND ANKLE RESTRAINTS. PT IS AWAKE WITH PARANOID HALLUCINATIONS. UNABLE TO COMMUNICATE OR REASON WITH PT. PT WITHOUT TELE MONITOR ON. IV'S SALINE LOCKED. ATTENDS IN PLACE. NO FAMILY AT BEDSIDE. WILL CONTINUE TO MONITOR AND REPORT OFF TO ONCOMING RN.
--- NOTE | 2019-02-16 07:09 | NUR ---
FALL RESPONDED TO BED ALARM, FOUND PT TO BE UP IN ROOM WITH ALL CLOTHING OFF AND OUT OF ALL RESTRAINTS. PT UNSTEADY ON FEET. PT LEANED AGAINST WALL, SLID DOWN TO TRASH CAN, THEN FELL TO FLOOR AND SAT WITH LEGS CROSSED. PT DID NOT HIT HEAD DURING FALL. PT REFUSED TO GET UP TO BED AND CONTINUED TO HAVE NONSENSICAL SPEECH. PT ASSISTED BACK TO BED WITH HELP OF 3 RN'S AND 2 TEACHER OF GIFTED STUDENTS'S. PT PLACED IN 4 POINT TAT LOCKED RESTRAINTS DUE TO STRENGTH. REPORTED OFF TO ONCOMING RN.
--- NOTE | 2019-02-16 10:48 | NUR ---
0730: CARE ASSUMED, PT REFUSING VS AND ASSESSMENT, IS AGITATED AND CRYING ON AND OFF, NO COMBATIVE OR AGGRESSIVE BEHAVIORS NOTED. TOUGH CUFFS ON ALL 4 EXTREMS PER ORDERS, PT TUGGING LIGHTLY AT RESTRAINTS, SKIN INTACT. WILL ATTEMPT TO ASSESS LATER. 0920: PT TO ICU ROOM 8 AT THIS TIME, TOUGH CUFF RESTRAINTS TO BUE'S ONLY, PT NOT DEMONSTRATING VIOLENT OR AGGRESSIVE BEHAVIORS. ASSESSMENT COMPLETED, CARDIAC MONITORING INITIATED, HR 70'S NSR. PT REMAINS AGITATED, CRYING OFF AND ON, JUICE AND WATER GIVEN. 1000: PT REFUSED ALL P.O. MEDICATIONS EXCEPT FOR LAMICTAL, REFUSING LAB DRAW. 1045: XRAY REFUSED. PT RESTING IN BED WITH EYES CLOSED, FAN ON. WILL ATTEMPT TO INSERT IV PER ORDERS.
--- NOTE | 2019-02-16 12:59 | NUR ---
1130: ATTEMPTED TO INSERT IV AND DRAW LABS, PT REFUSED, DR. BOBBY AWARE. NO NEW ORDERS AT THIS TIME. PT REMAINS NON-COMBATIVE, CONTINUES TO WHIMPER AND ASK STAFF TO LEAVE ROOM. 1230: DR. BOBBY AT BEDSIDE TO SPEAK WITH PT, PT CONTINUES TO REFUSE IV AND ALL MEDICATIONS EXCEPT FOR SEIZURE MEDS. AWARE, NO NEW ORDERS AT THIS TIME. VSS. 1300: RUE RESTRAINT REMOVED AT THIS TIME, PT CALM AND COOPERATIVE, NO LONGER CRYING OR MUMBLING, IS RESTING IN BED QUIETLY. WILL CONTINUE TO MONITOR CLOSELY. P.T. AT BEDSIDE FOR THERAPY.
--- NOTE | 2019-02-16 14:22 | NUR ---
PT BECOMING AGITATED, ASKING STAFF REPEATEDLY TO REMOVE RESTRAINTS AND LEAVE ROOM. ZYPREXA ADMINISTERED PER ORDERS. PT REFUSING P.O. LIQUIDS, LUE RESTRAINT REMAINS IN PLACE. PT NOT DEMONSTRATING COMBATIVE BEHAVIORS, LUE RESTRAINT REMOVED AT THIS TIME.
--- NOTE | 2019-02-16 17:10 | NUR ---
1600: PT REASSESSED, REMAINS ORIENTED X4, ALLOWS REASSESSMENT BUT CONTINUES TO REFUSE IV INSERTION AND LAB DRAWS DESPITE EXPLANATION OF NECESSITY. PT SITTING QUIETLY IN BED, EXPECTORATING LARGE AMOUNTS OF YELLOW SPUTUM. TELEPSYCH CONSULT SCHEDULED FOR 2014 THIS EVENING. 1715: PT UP TO TOILET WITH SBA FOR BM AND VOID. CXR COMPLETED, PT CONTINUES TO REFUSE IV AND LABS. GRANDPARENTS AT BEDSIDE. FEVER REMAINS, TYLENOL OFFERED MULTIPLE TIMES T/O SHIFT, PT REFUSES.
--- NOTE | 2019-02-16 17:58 | NUR ---
S.O. AT BEDSIDE, PT MORE COMPLIANT AT THIS TIME, AUGMENTIN ADMINISTERED EARLY WHILE PT WILLING TO TAKE IT. PT EATING DINNER WITHOUT DIFFICULTY WITH ASSISTANCE FROM S.O.
--- NOTE | 2019-02-16 18:33 | NUR ---
PT AGREED TO TAKE TYLENOL FOR FEVER, THEN REFUSED SOON TYLENOL WAS PRESENTED, ALSO CONTINUES TO REFUSE IV AND LAB DRAW. DR. BOBBY AWARE. VSS EXCEPT FOR FEVER, PT EDUCATED ON RISKS OF HIGH FEVER AND SEIZURES, CONTINUES TO REFUSE. PT REMAINS NON COMBATIVE BUT NON COMPLIANT, REPORTS HE IS NOT SICK AND DOES NOT NEED MEDICATIONS. REPORT TO ONCOMING SHIFT.
--- NOTE | 2019-02-16 19:32 | NUR ---
ASSUMED CARE OF PT AT 1915. PT PRESENTS IN BED RATHER PLEASANT BUT REFUSING TO TAKE ANYTHING FOR A TEMP OF 102.7 PT'S GIRLFRIEND, JANINE, AND HIS SISTER TRENTON COME TO ROOM AND THEY ARE CURRENTLY PLAYING A DICE GAME. GIRLFRIEND AND SISTER ARE BOTH TRYING TO GET PT TO TAKE TYLENOL. DID INSTRUCT PT THAT HE IS AT AN INCREASE RISK OF SEIZURE SECONDARY TO A HIGH TEMPERATURE. AGAIN, PT REFUSES TO TAKE TYLENOL. PT PENDING PSYCH EVALUATION AT 2014. PT CURRENTLY NOT IN RESTRAINTS AT THIS TIME. PT DOES TRY TO GET OUT OF BED WHEN GUESTS ARRIVE. INSTRUCTED PT THAT HE NEEDS STAFF WITH HIM IF HE GETS OUT OF BED SECONDARY TO A VERY UNSTEADY GAIT, AND THAT HE HAD FALLEN THIS AM SECONDARY TO IMPULSIVENESS, AND BEING UNSTEADY. PT THEN DOES STAY IN BED. WILL CONTINUE TO MONITOR PT VERY CLOSELY. WILL REVIEW CHART AND PLAN OF CARE FOR THIS PT.
--- NOTE | 2019-02-16 20:36 | NUR ---
TELE PSYCH INTERVIEW IN PROCESS.
--- NOTE | 2019-02-17 00:18 | NUR ---
ROOM CLEARED OF ANY HARMFUL ITEMS. PT NOW ON 1:1 REMOTE CAMERA OBSERVATION. HAVE STOOD PT AT SIDE OF BED. VERY UNSTABLE ON HIS FEET. PT WAS ABLE TO URINATE PER URINAL WITH SOME INSTRUCTION. WILL CONTINUE TO MONITOR CLOSELY. PT DOES THANK STAFF FOR THEIR CARE.
--- NOTE | 2019-02-17 01:22 | NUR ---
PT CURRENTLY RESTING IN BED. NO ACTS OF AGGRESSION OR AGITATION. PT DOES STATE THAT HE IS FEELING BETTER, AND HAS AGREED THAT THIS MAY BE RELATED TO THE DOSE OF SEROQUEL THAT HE TOOK AT BEDTIME. PT'S TEMP HAS DECREASED TO 100.4 FROM 103.3. WILL MONITOR FOR FEVER SPIKES. BED ALARM ON AND LIGHT LEFT ON IN ROOM TO FACILITATE BETTER VISUAL ABILITY FOR REMOTE CAMERA.
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
[2019-02-17 07:03] LABS: Hematocrit 40.4 % (37.0-53.0); Hemoglobin 13.8 g/dL (13.5-17.5); Mean Corpuscular HGB 30.8 pg (26.0-34.0); Mean Corpuscular HGB Conc 34.2 g/dL (31.5-36.5); Mean Platelet Volume 10.1 fL (9.1-12.4); Platelet Count 177 K/mm3 (150-400); RDW Coefficient Variation 12.5 % (11.7-14.2); RDW Standard Deviation 41.3 fL (35.1-46.3); Red Blood Cell Count 4.48 M/mm3 (4.30-5.90); White Blood Cell Count 8.13 K/mm3 (4.00-11.30)
[2019-02-17 07:06] LABS: Mean Corpuscular Volume 90 fL (80-100)
[2019-02-17 07:19] LABS: Anion Gap 7 mmol/L (6-16); Blood Urea Nitrogen 22 mg/dL (8-24); Bun/Creatinine Ratio 37.2 (12.0-20.0); CO2, Blood 27 mmol/L (21-32); Calcium, Blood 8.3 mg/dL (8.5-10.1); Chloride, Blood 110 mmol/L (98-108); Creatinine, Blood 0.59 mg/dL (0.60-1.20); Glomerular Filtration Rate >60 (60-); Glucose, Blood 104 mg/dL (70-99); Potassium, Blood 3.4 mmol/L (3.5-5.5); Sodium, Blood 144 mmol/L (136-145)
--- NOTE | 2019-02-17 08:30 | NUR ---
Recieved report from Ashish FLETCHER. He is on RA and sats upper 90%. He is in tuff cuffs at start of shift and [place] staopped by and I had him go in and remove all restraints and he has been very polite and cooperative. He took all am meds and ate 50% of breakfast. Speech and PT in room currently working with patient. He has been up to bathroom with one assist and just needs support with ambulation. He has 18ga IV LFA dressing intact and site WNL's. Dr may has been y to do faace to and stated if he wants to go AMA he may, just call security to escort out of building.
--- NOTE | 2019-02-17 09:45 | NUR ---
Patient up to shower and ambulated all the way with SBA. He continues to be cooperative when was working with PtT and has no current needs. Gave him supplies for am care in shower.
--- NOTE | 2019-02-17 11:30 | NUR ---
Patient currently resting. He has been cooperative with his care. I was playing dice game with him and he was pleasant. He is a little bit anxious about staying in room although he has not said anyting he is up in room priorjust looking around to keep himself busy. He has made several phone calls and accepted several. He states his meds makes him tired.
--- NOTE | 2019-02-17 13:40 | NUR ---
Patient has worked with PT again and did very well. He has been resting other borja. No other significant changes.
--- NOTE | 2019-02-17 16:11 | NUR ---
Patient up in room independent. Remains cooperative with care and takes meds as prescribed. Was in room talking with patient and he asked if he was on a hold and I stated no, and he asked if he wanted to leave could he. I stated not recommended until better and stregnth increased , but that no one would keep him here if he decided to leave and that was end of conversation. VSS .
--- NOTE | 2019-02-17 17:49 | NUR ---
Patient has been pacing in room and states just try to work to get stronger. He ate 100% of dinner. Medicated with Seroquel earlier to help with restlessness. VSS. He continues to be independent in room and cooperative with any care or instructions. He was just up brushing teeth amd cleaning up again. He shows no signs of violence currently.
--- NOTE | 2019-02-17 19:29 | NUR ---
ASSUMED CARE OF PT AT 1915. REPORT RECEIVED AT BEDSIDE. PT PRESENTS IN ROOM PACING ABOUT ROOM. DEMONSTRATES MILD UNSTEADINESS ON FEET. PT ALERT AND ORIENTED. PLEASANT AND COOPERATIVE WITH CARE AT THIS TIME. DISCUSSED WITH PT THE EVENTS OF EARLIER IN AM WHEREAS HE FELL AND WAS COMBATIVE. PT DID VERBALLY APOLOLGIZE FOR HIS BEHAVIOR DURING EPISODE. DID MENTION TO PT THAT THESE EPISODES OCCURRED TWO DAYS IN A ROW NEAR THE SAME TIME. DID SUGGEST TO PT THAT HE RECEIVE A DOSE OF SEROQUEL NEAR 0400 IN AM TO HELP HIM IN AM. PT DID AGREE TO THIS PLAN. WILL REVIEW CHART AND PLAN OF CARE FOR THIS PT.
--- NOTE | 2019-02-17 22:47 | NUR ---
PT AMBULATES TO DOORWAY OF ROOM AND STATE THAT HE WAS GOING TO GO TO BED FOR THE NIGHT. HAS BEEN ABLE TO AMBULATE IN ROOM AND TO TOILET INDEPENDENTLY. VOIDS Q.S. HAS BM. PT DID TAKE HIS HS MEDS TONIGHT WITHOUT ISSUE. NO S/S SEIZURE ACTIVITIES TO NOTE. REMAINS ON REMOTE MONITORING. WILL CONTINUE TO MONITOR PT. NO S/S OR VERBALIZED S.I. OR ACTIONS OF SELF HARM INTENT.
--- NOTE | 2019-02-18 01:47 | NUR ---
PT CURRENTLY RESTING IN BED. NO AGITATION OR AGRESSION TO NOTE. NO SEIZURE LIKE ACTIVITY TO NOTE. NO ACTS OR DEMONSTRATED S.I. WILL CONTINUE TO MONITOR.
--- NOTE | 2019-02-18 05:30 | NUR ---
PT AWAKENS AND IS ACCEPTING OF DOSE OF SEROQUEL EARLIER IN NIGHT. PT BEING MUCH MORE COMPLIANT AND AGREEABLE WITH CARE THAN PREVIOUS NIGHT. PT HAS BEEN UP TO TOILET WHEREAS HE VOIDS QS. NO S/S SEIZURE ACTIVITY TO NOTE. NO VOICED OR DEMONSTRATED S.I. NO ACTIONS OF SELF HARM TO NOTE. REMAINS WITH MOIST PRODUCTIVE COUGH WITH SPUTUM PRODUCTION. REMAINS ON ROOM AIR. DENIES DYSPNEA. WILL CONTINUE TO MONITOR PT, AND WILL REPORT OFF TO ONCOMING RN.
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
--- NOTE | 2019-02-18 08:12 | NUR ---
DR VILLEGAS IN TO ASSESS PT. UPDATED ON PT'S STATUS. WILL RE-CONSULT PT WITH TELE-AVRIL TODAY. PT REMAINS MEDICAL STATUS, NO TELE AND DOES NOT REQUIRE CONTINUED HIGH SUICIDE RISK MONITORING. INFORMED CENTRAL MONITORING STATION AND JUSTINE SARGENT MULE DEVELOPER. ORDER PLACED FOR PRINTING AND STAMPING SUPERVISOR TO PROVIDE PT W/ RESOURCES ON FINANCIAL MEDICATION ASSISTANCE.
--- NOTE | 2019-02-18 10:18 | NUR ---
PT COMPLETED RE-EVAL FOR TELE-PSYCHIATRIC WITH DR ADRIAN. AWAITING DICTATED RESULTS FROM THE RE-CONSULTATION. CALLED DR VILLEGAS AND PASSED ON RECOMMNEDATIONS FROM DR ADRIAN. PT CLEARED FROM PSYCHIATRIC FOR DISCHARGE AND CONTINUE ON SAME MEDICATIONS. WILL WORK ON GETTING PT A VOUCHER FOR HIS DISCHARGE MEDICATIONS, UNTIL IMMERGENT OHP IS SET UP FOR THIS PT TO RECEIVE ASSISTANCE.
[2019-02-18] MEDS ORDERED: QUET100 PO (13:36)
--- NOTE | 2019-02-18 14:19 | NUR ---
DISCHARGE INSTRUCTIONS/PLAN: VERBAL/WRITTEN DISCHARGE INSTRUCTIONS GIVEN TO PT. ALL QUESTIONS ANSWERED. NEW RX'S CALLED INTO [facility] IN THE MALL. PT PROVIDED WITH A MEDICATION VOUCHER FOR SEROQUEL/LAMICTAL. IV D/C'D, CATH INTACT, FA WRAPPED WITH COBAN. PT BELONINGS RETURNED TO PT. PT DRESSED AND ESCORTED BY THIS RN OUT THE PT ENTRANCE. PT REPORTS HE HAS "FAMILY MEMBERS WAITING TO PICK HIM UP." PT REPORTS HE WILL GO DIRECTLY TO [facility] TO FILL RX'S.
== END 2019-02-18 14:15 | disposition home or self-care (01) | DRG 100 ==
LOC: ER 09:14 → ICUW 09:15 → ICUE 09:15 → PCU 09:15 → ICUE 14:41 → PCU 02-15 11:52 → ICUE 02-16 09:15
PROVIDERS: Emergency Medicine; Internal Medicine; Internal Medicine Critical Care Medicine; ADMIT Hospitalist
PROC: 0BH17EZ Insertion of Endotracheal Airway into Trachea, Via Natural or Artificial Opening (ICD-10-PCS; principal; 2019-02-10)
PROC: 5A1955Z Respiratory Ventilation, Greater than 96 Consecutive Hours (ICD-10-PCS; 2019-02-10)
DX: G40.901 Epilepsy, unspecified, not intractable, with status epilepticus (principal); G92 Toxic encephalopathy; J96.01 Acute respiratory failure with hypoxia; J90 Pleural effusion, not elsewhere classified; F15.121 Other stimulant abuse with intoxication delirium; F15.220 Other stimulant dependence with intoxication, uncomplicated; E87.6 Hypokalemia; D69.49 Other primary thrombocytopenia; F19.10 Other psychoactive substance abuse, uncomplicated; B95.62 Methicillin resistant Staphylococcus aureus infection as the cause of diseases classified elsewhere; B96.3 Hemophilus influenzae [H. influenzae] as the cause of diseases classified elsewhere; F17.210 Nicotine dependence, cigarettes, uncomplicated
CPT/HCPCS: 31500; 31720; 36415; 36600; 51702; 70450; 71045; 80048; 80053; 80069; 81001; 82550; 82803; 82947; 83735; 84145; 85025; 85027; 87070; 87077; 87081; 87086; 87147; 87185; 87186; 87205; 92507; 92523; 92610; 93005; 93010; 93306; 94002; 94003; 94640; 96374-59; 96375; 96376; 97110; 97116; 97162; 97166; 97530; 99285-25; A9270; C1751; C9113; G0378; G0480; J1650; J1940; J1953; J2001; J2060; J2250; J2704; J2765; J3010; J3480; J7030; J7040; P9046

== ENCOUNTER 2019-03-20 09:29 | Inpatient (IN) | payer OTHER ==
[~2019-03-20] VITALS: Ht 172.7 cm; Wt 79.4 kg
[~2019-03-20 09:29] MED LIST changes: +QUET100 PO
[2019-03-20 16:16] LABS: U Benzodiazapine Screen DETECTED; U Cannabinoids Screen DETECTED
[2019-03-20 16:17] LABS: U Amphetamine Screen Not Detected; U Barbituate Screen DETECTED; U Buprenorphine Screen Not Detected; U Cocaine Screen Not Detected; U Methadone Screen Not Detected; U Methamphetamine Screen Not Detected; U Opiates Screen Not Detected; U Oxycodone Screen Not Detected; U Phencyclidine Screen Not Detected; U Propoxyphene Screen Not Detected
[2019-03-21 12:45] LABS: Anion Gap 5 mmol/L (6-16); Blood Urea Nitrogen 13 mg/dL (8-24); CO2, Blood 28 mmol/L (21-32); Calcium, Blood 8.4 mg/dL (8.5-10.1); Chloride, Blood 106 mmol/L (98-108); Creatinine, Blood 0.76 mg/dL (0.60-1.20); Glomerular Filtration Rate >60 (60-); Glucose, Blood 86 mg/dL (70-99); Magnesium, Blood 2.1 mg/dL (1.6-2.4); Potassium, Blood 4.3 mmol/L (3.5-5.5); Sodium, Blood 139 mmol/L (136-145)
[2019-03-22] MEDS ORDERED: ONDA4ODT MM (11:40)
== END 2019-03-22 12:32 | disposition home or self-care (01) | DRG 100 ==
LOC: ER 09:29 → MEDS 09:30 → ENPENDDIS 03-22 11:16 → MEDS 03-22 12:32
PROVIDERS: Emergency Medicine; Internal Medicine; ADMIT Internal Medicine
DX: G40.409 Other generalized epilepsy and epileptic syndromes, not intractable, without status epilepticus (principal); G92 Toxic encephalopathy; E87.6 Hypokalemia; F19.11 Other psychoactive substance abuse, in remission; F17.200 Nicotine dependence, unspecified, uncomplicated; Z88.6 Allergy status to analgesic agent; Z88.2 Allergy status to sulfonamides; Z88.8 Allergy status to other drugs, medicaments and biological substances
CPT/HCPCS: 36415; 80047; 80048; 80175; 83735; 85014; 87070; 87081; 96361; 96365; 96372; 96375; 99284; 99285-25; G0378; J1165; J1650; J2060; J7030

== ENCOUNTER 2019-04-11 16:30 | Emergency (ER) | payer OTHER ==
[~2019-04-11] VITALS: Ht 175.3 cm; Wt 68.0 kg
[2019-04-11 17:25] LABS: Calcium, Ionized (POC) 1.23 mmol/L (1.10-1.46); Chloride (POC) 97 mmol/L (98-108); Creatinine (POC) 0.7 mg/dL (0.8-1.3); Glucose (ISTAT POC) 136 mg/dL (70-99); Hemoglobin (POC) 15.6 g/dL (13.5-17.5); Sodium (POC) 137 mmol/L (135-148); Total CO2 (POC) 30 mmol/L (21-32)
== END 2019-04-11 17:55 | disposition home or self-care (01) ==
LOC: ER 16:30
PROVIDERS: Emergency Medicine
DX: R56.9 Unspecified convulsions (principal); F19.10 Other psychoactive substance abuse, uncomplicated; Z88.2 Allergy status to sulfonamides; Z88.6 Allergy status to analgesic agent; Z88.1 Allergy status to other antibiotic agents; Z79.899 Other long term (current) drug therapy; F17.210 Nicotine dependence, cigarettes, uncomplicated
CPT/HCPCS: 36415; 80047; 80175; 85014; 96374; 99284-25; J2060

== ENCOUNTER 2019-04-19 12:08 | Emergency (ER) | payer OTHER ==
[~2019-04-19] VITALS: Ht 175.3 cm; Wt 72.6 kg
== END 2019-04-19 15:00 | disposition home or self-care (01) ==
LOC: ER 12:08
DX: G40.909 Epilepsy, unspecified, not intractable, without status epilepticus (principal); F17.210 Nicotine dependence, cigarettes, uncomplicated; Z88.6 Allergy status to analgesic agent; Z88.2 Allergy status to sulfonamides; Z88.1 Allergy status to other antibiotic agents; Z79.899 Other long term (current) drug therapy
CPT/HCPCS: 80175; 99284

== ENCOUNTER 2019-05-14 19:11 | Emergency (ER) | payer OTHER ==
[~2019-05-14] VITALS: Ht 175.3 cm; Wt 82.5 kg
[2019-05-14] MEDS ORDERED: ONDANSETRON ODT 4MG (19:22)
[2019-05-14] MEDS ORDERED: QUETIAPINE FUM100 MG PO (19:22)
== END 2019-05-14 21:33 | disposition left against medical advice (07) ==
LOC: ER 19:11
DX: Z53.21 Procedure and treatment not carried out due to patient leaving prior to being seen by health care provider (principal)

== ENCOUNTER 2019-05-15 04:55 | Emergency (ER) | payer OTHER ==
[~2019-05-15] VITALS: Ht 175.3 cm; Wt 77.1 kg
[~2019-05-15 04:55] MED LIST changes: +ONDANSETRON ODT 4MG; +QUETIAPINE FUM100 MG PO
[2019-05-15 05:20] LABS: Chloride (POC) 101 mmol/L (98-108); Creatinine (POC) 0.7 mg/dL (0.8-1.3); Glucose (ISTAT POC) 96 mg/dL (70-99); Hemoglobin (POC) 16.3 g/dL (13.5-17.5); Potassium (POC) 3.7 mmol/L (3.5-5.5); Sodium (POC) 138 mmol/L (135-148); Total CO2 (POC) 26 mmol/L (21-32)
== END 2019-05-15 06:10 | disposition home or self-care (01) ==
LOC: ER 04:55
PROVIDERS: Emergency Medicine
DX: R56.9 Unspecified convulsions (principal); Z88.6 Allergy status to analgesic agent; Z88.2 Allergy status to sulfonamides; Z88.1 Allergy status to other antibiotic agents; Z79.899 Other long term (current) drug therapy; F17.210 Nicotine dependence, cigarettes, uncomplicated
CPT/HCPCS: 36415; 80047; 82947; 85014; 99284

== ENCOUNTER 2019-05-18 10:06 | Emergency (ER) | payer OTHER ==
[~2019-05-18] VITALS: Ht 175.3 cm; Wt 76.7 kg
[2019-05-18 10:43] LABS: BASOPHILS ABSOLUTE AUTO 0.03 K/mm3 (0.00-0.23); BASOPHILS PERCENT AUTO 1 % (0-2); EOSINOPHILS ABSOLUTE AUTO 0.31 K/mm3 (0.00-0.68); EOSINOPHILS PERCENT AUTO 5 % (0-6); Hematocrit 49.4 % (37.0-53.0); Hemoglobin 16.2 g/dL (13.5-17.5); IMMATURE GRAN ABSOLUTE AUTO 0.01 K/mm3 (0.00-0.10); IMMATURE GRAN PERCENT AUTO 0 % (0-1); LYMPHOCYTES PERCENT AUTO 12 % (21-46); MONOCYTES ABSOLUTE AUTO 0.21 K/mm3 (0.16-1.47); MONOCYTES PERCENT AUTO 4 % (4-13); Mean Corpuscular HGB 30.9 pg (26.0-34.0); Mean Corpuscular HGB Conc 32.8 g/dL (31.5-36.5); Mean Corpuscular Volume 94 fL (80-100); Mean Platelet Volume 10.7 fL (9.1-12.4); NEUTROPHILS ABSOLUTE AUTO 4.61 K/mm3 (1.96-9.15); NEUTROPHILS PERCENT AUTO 79 % (41-73); Platelet Count 131 K/mm3 (150-400); RDW Coefficient Variation 12.2 % (11.7-14.2); RDW Standard Deviation 42.5 fL (35.1-46.3); Red Blood Cell Count 5.25 M/mm3 (4.30-5.90); White Blood Cell Count 5.87 K/mm3 (4.00-11.30)
[2019-05-18 11:06] LABS: Alanine Aminotransfer (ALT/SGP 21 U/L (12-78); Albumin, Blood 3.7 g/dL (3.4-5.0); Albumin/Globulin Ratio 1.2 (0.8-1.8); Alk Phos 68 U/L (50-136); Anion Gap 5 mmol/L (6-16); Aspartate Aminotrans (AST/SGOT 16 U/L (12-37); Bilirubin, Total 0.3 mg/dL (0.1-1.0); Blood Urea Nitrogen 15 mg/dL (8-24); Bun/Creatinine Ratio 19.4 (12.0-20.0); CO2, Blood 30 mmol/L (21-32); Calcium, Blood 8.3 mg/dL (8.5-10.1); Chloride, Blood 110 mmol/L (98-108); Creatinine, Blood 0.77 mg/dL (0.60-1.20); Glomerular Filtration Rate >60 (60-); Glucose, Blood 100 mg/dL (70-99); Potassium, Blood 4.1 mmol/L (3.5-5.5); Sodium, Blood 145 mmol/L (136-145); Total Protein, Blood 6.7 g/dL (6.4-8.2)
[2019-05-18] MEDS ORDERED: SUBVENITE200 MG PO (12:33)
== END 2019-05-18 13:06 ==
LOC: ER 10:06
PROVIDERS: Emergency Medicine
DX: R56.9 Unspecified convulsions (principal); Z88.6 Allergy status to analgesic agent; Z88.1 Allergy status to other antibiotic agents; Z88.2 Allergy status to sulfonamides; Z79.899 Other long term (current) drug therapy; F17.210 Nicotine dependence, cigarettes, uncomplicated
CPT/HCPCS: 80053; 80175; 85025; 99284

== ENCOUNTER 2019-06-07 07:51 | Emergency (ER) | payer OTHER ==
[~2019-06-07] VITALS: Ht 177.8 cm; Wt 83.9 kg
[~2019-06-07 07:51] MED LIST changes: +SUBVENITE200 MG PO
[2019-06-07 08:34] LABS: BASOPHILS ABSOLUTE AUTO 0.04 K/mm3 (0.00-0.23); BASOPHILS PERCENT AUTO 1 % (0-2); EOSINOPHILS ABSOLUTE AUTO 0.41 K/mm3 (0.00-0.68); EOSINOPHILS PERCENT AUTO 6 % (0-6); Hematocrit 48.7 % (37.0-53.0); Hemoglobin 16.9 g/dL (13.5-17.5); IMMATURE GRAN ABSOLUTE AUTO 0.02 K/mm3 (0.00-0.10); IMMATURE GRAN PERCENT AUTO 0 % (0-1); LYMPHOCYTES ABSOLUTE AUTO 1.03 K/mm3 (0.84-5.20); LYMPHOCYTES PERCENT AUTO 15 % (21-46); MONOCYTES ABSOLUTE AUTO 0.52 K/mm3 (0.16-1.47); MONOCYTES PERCENT AUTO 8 % (4-13); Mean Corpuscular HGB 31.1 pg (26.0-34.0); Mean Corpuscular HGB Conc 34.7 g/dL (31.5-36.5); Mean Corpuscular Volume 90 fL (80-100); Mean Platelet Volume 10.2 fL (9.1-12.4); NEUTROPHILS ABSOLUTE AUTO 4.84 K/mm3 (1.96-9.15); NEUTROPHILS PERCENT AUTO 71 % (41-73); Platelet Count 161 K/mm3 (150-400); RDW Coefficient Variation 12.1 % (11.7-14.2); RDW Standard Deviation 39.6 fL (35.1-46.3); Red Blood Cell Count 5.44 M/mm3 (4.30-5.90); White Blood Cell Count 6.86 K/mm3 (4.00-11.30)
[2019-06-07 08:56] LABS: Alanine Aminotransfer (ALT/SGP 17 U/L (12-78); Albumin, Blood 3.9 g/dL (3.4-5.0); Albumin/Globulin Ratio 1.2 (0.8-1.8); Alk Phos 76 U/L (50-136); Anion Gap 4 mmol/L (6-16); Aspartate Aminotrans (AST/SGOT 13 U/L (12-37); Bilirubin, Total 0.3 mg/dL (0.1-1.0); Blood Urea Nitrogen 14 mg/dL (8-24); Bun/Creatinine Ratio 17.5 (12.0-20.0); CO2, Blood 28 mmol/L (21-32); Calcium, Blood 8.5 mg/dL (8.5-10.1); Chloride, Blood 106 mmol/L (98-108); Globulin, Blood 3.2 g/dL (2.2-4.0); Glomerular Filtration Rate >60 (60-); Glucose, Blood 89 mg/dL (70-99); Potassium, Blood 3.9 mmol/L (3.5-5.5); Sodium, Blood 138 mmol/L (136-145); Total Protein, Blood 7.1 g/dL (6.4-8.2)
[2019-06-09] MEDS ORDERED: LEVE500 PO (09:33)
[2019-06-09] MEDS ORDERED: ALBU90OI INH (09:35)
== END 2019-06-07 09:35 | disposition home or self-care (01) ==
LOC: ER 07:51
PROVIDERS: Emergency Medicine
DX: R56.9 Unspecified convulsions (principal); F17.210 Nicotine dependence, cigarettes, uncomplicated; Z88.6 Allergy status to analgesic agent; Z88.2 Allergy status to sulfonamides; Z88.1 Allergy status to other antibiotic agents; Z79.899 Other long term (current) drug therapy
CPT/HCPCS: 36415; 80053; 85025; 99284

== ENCOUNTER 2019-08-01 10:51 | Observation (INO) | payer OTHER ==
[~2019-08-01] VITALS: Ht 177.8 cm; Wt 68.0 kg
[~2019-08-01 10:51] MED LIST changes: +LEVE500 PO
--- NOTE | 2019-08-01 14:22 | NUR ---
ASSUMED PATIENT CARE. PATIENT BROUGHT TO PCU FROM ED, IN POSTICTAL STATE. PATIENT MAINTAINING POSITION, NOT VERBALLY RESPONSIVE TO NURSE CALLING HIS NAME, PATIENT ATTEMPTING TO KEEP EYES COVERED WITH BLANKETS. WILL GRUMBLE AND VERBALIZE THAT HE IS COLD AND WANTS TO BE LEFT ALONE. EQUAL BILATERAL CHEST RISE WITH BREATH. ATTEMPTED TO ASSESS PATIENT, SUCCESSFUL IN LISTENING TO HEART AND LUNGS.
[2019-08-01 16:04] LABS: Alanine Aminotransfer (ALT/SGP 22 U/L (12-78); Albumin, Blood 3.7 g/dL (3.4-5.0); Albumin/Globulin Ratio 1.3 (0.8-1.8); Alk Phos 74 U/L (50-136); Anion Gap 4 mmol/L (6-16); Aspartate Aminotrans (AST/SGOT 20 U/L (12-37); Bilirubin, Total 0.5 mg/dL (0.1-1.0); Blood Urea Nitrogen 18 mg/dL (8-24); Bun/Creatinine Ratio 26.7 (12.0-20.0); CO2, Blood 27 mmol/L (21-32); Chloride, Blood 110 mmol/L (98-108); Creatinine, Blood 0.68 mg/dL (0.60-1.20); Globulin, Blood 2.9 g/dL (2.2-4.0); Glomerular Filtration Rate >60 (60-); Glucose, Blood 85 mg/dL (70-99); Potassium, Blood 4.1 mmol/L (3.5-5.5); Sodium, Blood 141 mmol/L (136-145); Total Protein, Blood 6.6 g/dL (6.4-8.2)
--- NOTE | 2019-08-01 18:00 | NUR ---
PT CALLED HIS GRANDMOTHER WHO CAME AND BROUGHT HIM CIGARETTES. PT STOOD UP AND SET OFF BED ALARM AND SAID HE WANTED TO GO OUTSIDE TO SMOKE. TOLD HIM IT WAS NOT SAFE FOR HIM TO GO OUT ALONE DUE TO BEING IN POSTICTAL STATE AND THAT HE WOULD HAVE TO GET SOMEONE TO WHEEL HIM OUTSIDE. HE SAID HE WOULD WHEEL HIMSELF OUT. NO SELF PUSHING WHEEL CHAIRS AVAILABLE. DISCUSSED WITH SQUEEGEE TENDER AND NURSING SANITARY ENGINEER. CALL TO ISTRATE TO LET HIM KNOW OF SITUATION. STATED THAT DUE TO PT'S SEIZURES HE DID NOT FEEL COMFORTABLE DC'ING TELE OR SUPPORTING PT GOING OUT TO SMOKE AND IF HE TRULY WANTED TO HE WOULD HAVE TO LEAVE AMA. WHEN PT WAS TOLD THIS HE STATED THAT HE COULD NOT BE DISCRIMINATED AGAINST BECAUSE HE WAS A SMOKER AND THAT HE HAS LOOKED UP THE LAW AND KNOWS HIS RIGHTS. HE WAS THEN TOLD THAT WE HAVE THE RIGHT TO HAVE HIS SAFETY PRIORITY AND THAT THIS WAS AN UNSAFE SITUATION. PT SAID THAT HE WAS LEAVING. GIVEN AMA FORM WHICH HE SIGNED. TELE MONITOR AND IV REMOVED. SECURITY CALLED AND ESCORTED PT OUT
== END 2019-08-01 17:59 | disposition left against medical advice (07) ==
LOC: ER 10:51 → PCU 10:52
PROVIDERS: Nurse Practitioner Acute Care; ADMIT Family Medicine
DX: G40.409 Other generalized epilepsy and epileptic syndromes, not intractable, without status epilepticus (principal); F15.10 Other stimulant abuse, uncomplicated; F17.210 Nicotine dependence, cigarettes, uncomplicated; F10.10 Alcohol abuse, uncomplicated; Z59.0 Homelessness; Z88.6 Allergy status to analgesic agent; Z88.2 Allergy status to sulfonamides; G92 Toxic encephalopathy; F31.9 Bipolar disorder, unspecified; Z79.899 Other long term (current) drug therapy; Z23 Encounter for immunization
CPT/HCPCS: 36415; 70450; 80053; 80175; 80177; 83605; 83735; 84146; 85025; 90686; 96374; 96375; 96376; 99284; 99284-25; G0008; G0378; G0480; J1953; J2060; J7030

== ENCOUNTER 2019-08-17 08:56 | Emergency (ER) | payer OTHER ==
[~2019-08-17] VITALS: Ht 177.8 cm; Wt 74.8 kg
[2019-08-17 09:53] LABS: Alanine Aminotransfer (ALT/SGP 21 U/L (12-78); Albumin, Blood 3.9 g/dL (3.4-5.0); Albumin/Globulin Ratio 1.3 (0.8-1.8); Anion Gap 1 mmol/L (6-16); Aspartate Aminotrans (AST/SGOT 13 U/L (12-37); Bilirubin, Total 0.6 mg/dL (0.1-1.0); Blood Urea Nitrogen 15 mg/dL (8-24); Bun/Creatinine Ratio 18.5 (12.0-20.0); CO2, Blood 32 mmol/L (21-32); Chloride, Blood 107 mmol/L (98-108); Creatinine, Blood 0.81 mg/dL (0.60-1.20); Globulin, Blood 3.1 g/dL (2.2-4.0); Glomerular Filtration Rate >60 (60-); Glucose, Blood 102 mg/dL (70-99); Magnesium, Blood 2.2 mg/dL (1.6-2.4); Potassium, Blood 4.5 mmol/L (3.5-5.5); Sodium, Blood 140 mmol/L (136-145)
[2019-08-17 09:54] LABS: Alk Phos 69 U/L (50-136)
[2019-08-17 14:35] LABS: Ethanol (Alcohol), Blood, Med <3 mg/dL; Prolactin 32.9 ng/mL (2.5-17.4)
== END 2019-08-17 15:00 | disposition home or self-care (01) ==
LOC: ER 08:56
PROVIDERS: Emergency Medicine
DX: G40.909 Epilepsy, unspecified, not intractable, without status epilepticus (principal); F17.200 Nicotine dependence, unspecified, uncomplicated; Z88.6 Allergy status to analgesic agent; Z88.2 Allergy status to sulfonamides; Z88.1 Allergy status to other antibiotic agents; Z79.899 Other long term (current) drug therapy; Z79.51 Long term (current) use of inhaled steroids
CPT/HCPCS: 70450; 80053; 80175; 83735; 84145; 84146; 96365; 96366; 96367; 96375; 96376; 99284-25; G0480; J1953; J2060; J3411; J3475; J7042

== ENCOUNTER 2019-08-30 | Emergency (ER) | payer OTHER ==
[~2019-08-30] VITALS: Ht 177.8 cm; Wt 77.1 kg
[2019-08-30 00:15] LABS: BASOPHILS ABSOLUTE AUTO 0.01 K/mm3 (0.00-0.23); BASOPHILS PERCENT AUTO 0 % (0-2); EOSINOPHILS ABSOLUTE AUTO 0.28 K/mm3 (0.00-0.68); EOSINOPHILS PERCENT AUTO 3 % (0-6); Hematocrit 45.7 % (37.0-53.0); Hemoglobin 15.5 g/dL (13.5-17.5); IMMATURE GRAN ABSOLUTE AUTO 0.02 K/mm3 (0.00-0.10); IMMATURE GRAN PERCENT AUTO 0 % (0-1); LYMPHOCYTES ABSOLUTE AUTO 1.19 K/mm3 (0.84-5.20); LYMPHOCYTES PERCENT AUTO 14 % (21-46); MONOCYTES PERCENT AUTO 6 % (4-13); Mean Corpuscular HGB 31.1 pg (26.0-34.0); Mean Corpuscular HGB Conc 33.9 g/dL (31.5-36.5); Mean Corpuscular Volume 92 fL (80-100); Mean Platelet Volume 10.9 fL (9.1-12.4); NEUTROPHILS ABSOLUTE AUTO 6.71 K/mm3 (1.96-9.15); NEUTROPHILS PERCENT AUTO 77 % (41-73); Platelet Count 148 K/mm3 (150-400); RDW Coefficient Variation 12.6 % (11.7-14.2); RDW Standard Deviation 43.4 fL (35.1-46.3); Red Blood Cell Count 4.98 M/mm3 (4.30-5.90); White Blood Cell Count 8.71 K/mm3 (4.00-11.30)
[2019-08-30 00:34] LABS: Alanine Aminotransfer (ALT/SGP 18 U/L (12-78); Albumin, Blood 3.7 g/dL (3.4-5.0); Albumin/Globulin Ratio 1.3 (0.8-1.8); Alk Phos 75 U/L (50-136); Anion Gap 6 mmol/L (6-16); Aspartate Aminotrans (AST/SGOT 16 U/L (12-37); Bilirubin, Total 0.2 mg/dL (0.1-1.0); Blood Urea Nitrogen 15 mg/dL (8-24); Bun/Creatinine Ratio 16.8 (12.0-20.0); CO2, Blood 27 mmol/L (21-32); Calcium, Blood 8.1 mg/dL (8.5-10.1); Chloride, Blood 109 mmol/L (98-108); Ethanol (Alcohol), Blood, Med <3 mg/dL; Globulin, Blood 2.8 g/dL (2.2-4.0); Glomerular Filtration Rate >60 (60-); Glucose, Blood 88 mg/dL (70-99); Potassium, Blood 4.2 mmol/L (3.5-5.5); Sodium, Blood 142 mmol/L (136-145); Total Protein, Blood 6.5 g/dL (6.4-8.2)
== END 2019-08-30 01:22 | disposition home or self-care (01) ==
LOC: ER
PROVIDERS: Emergency Medicine
DX: R56.9 Unspecified convulsions (principal); Z88.6 Allergy status to analgesic agent; Z88.2 Allergy status to sulfonamides; Z88.1 Allergy status to other antibiotic agents; Z79.899 Other long term (current) drug therapy; F17.210 Nicotine dependence, cigarettes, uncomplicated
CPT/HCPCS: 36415; 80053; 85025; 99284; G0480

== ENCOUNTER 2019-11-06 18:41 | Emergency (ER) | payer OTHER ==
[~2019-11-06] VITALS: Ht 175.3 cm; Wt 68.0 kg
[2019-11-06] MEDS ORDERED: LEVE500 PO (19:56)
== END 2019-11-06 20:23 | disposition home or self-care (01) ==
LOC: ER 18:41
DX: G40.909 Epilepsy, unspecified, not intractable, without status epilepticus (principal); F31.9 Bipolar disorder, unspecified; Z91.14 Patient's other noncompliance with medication regimen; Z79.899 Other long term (current) drug therapy
CPT/HCPCS: 99284; G0480; J1953

== ENCOUNTER 2020-01-27 11:15 | Observation (INO) | payer OTHER ==
[~2020-01-27] VITALS: Ht 172.7 cm; Wt 68.0 kg
[2020-01-27 11:39] LABS: BASOPHILS ABSOLUTE AUTO 0.06 K/mm3 (0.00-0.23); BASOPHILS PERCENT AUTO 1 % (0-2); EOSINOPHILS ABSOLUTE AUTO 0.81 K/mm3 (0.00-0.68); EOSINOPHILS PERCENT AUTO 8 % (0-6); Hematocrit 49.7 % (37.0-53.0); Hemoglobin 16.2 g/dL (13.5-17.5); IMMATURE GRAN ABSOLUTE AUTO 0.02 K/mm3 (0.00-0.10); IMMATURE GRAN PERCENT AUTO 0 % (0-1); LYMPHOCYTES PERCENT AUTO 17 % (21-46); MONOCYTES ABSOLUTE AUTO 0.71 K/mm3 (0.16-1.47); MONOCYTES PERCENT AUTO 7 % (4-13); Mean Corpuscular HGB 30.4 pg (26.0-34.0); Mean Corpuscular HGB Conc 32.6 g/dL (31.5-36.5); Mean Corpuscular Volume 93 fL (80-100); NEUTROPHILS ABSOLUTE AUTO 6.89 K/mm3 (1.96-9.15); NEUTROPHILS PERCENT AUTO 68 % (41-73); Platelet Count 198 K/mm3 (150-400); RDW Coefficient Variation 12.9 % (11.7-14.2); RDW Standard Deviation 44.8 fL (35.1-46.3); Red Blood Cell Count 5.33 M/mm3 (4.30-5.90); White Blood Cell Count 10.19 K/mm3 (4.00-11.30)
[2020-01-27 11:59] LABS: Alanine Aminotransfer (ALT/SGP 19 U/L (12-78); Albumin, Blood 3.6 g/dL (3.4-5.0); Albumin/Globulin Ratio 1.1 (0.8-1.8); Alk Phos 75 U/L (50-136); Anion Gap 6 mmol/L (6-16); Aspartate Aminotrans (AST/SGOT 19 U/L (12-37); Bilirubin, Total 0.6 mg/dL (0.1-1.0); Blood Urea Nitrogen 13 mg/dL (8-24); Bun/Creatinine Ratio 17.4 (12.0-20.0); CO2, Blood 27 mmol/L (21-32); Calcium, Blood 7.9 mg/dL (8.5-10.1); Chloride, Blood 108 mmol/L (98-108); Creatinine, Blood 0.75 mg/dL (0.60-1.20); Ethanol (Alcohol), Blood, Med <3 mg/dL; Globulin, Blood 3.2 g/dL (2.2-4.0); Glomerular Filtration Rate >60 (60-); Glucose, Blood 84 mg/dL (70-99); Potassium, Blood 4.1 mmol/L (3.5-5.5); Salicylate 2.2 mg/dL (2.8-20.0); Sodium, Blood 141 mmol/L (136-145); Total Protein, Blood 6.8 g/dL (6.4-8.2)
[2020-01-27 12:05] LABS: Acetaminophen, Random <2.0 ug/mL (10.0-30.0)
--- NOTE | 2020-01-27 15:10 | NUR ---
PT ARRIVED TO ICU 4 FROM ER PCU STATUS. ACCOMPANIED BY CAP MAKER AND TECH. PT IS DROWSY. WILL AROUSE TO VOICE AND WAS ABLE TO SCOOT HIMSELF FROM GURNEY TO BED WITH PERSISTENT VERBAL CUES. PT WILL NOT ANSWER ANY QUESTIONS.
--- NOTE | 2020-01-27 18:05 | NUR ---
PT HAS BEEN SLEEPING SINCE ARRIVAL TO ICU. WILL LIFT HEAD AND LOOK AROUND ONCE IN A WHILE. BED ALARM ARMED FOR SAFETY.
--- NOTE | 2020-01-27 19:40 | NUR ---
ASSUMED CARE OF PT, REPORT RECEIVED. PT IS RESTING QUIETLY RECLINING IN BED AND APPEARS TO BE SLEEPING, HE ROUSES EASILY TO VERBAL STIMULI AND IS ORIENTED AND APPROPRIATE AT THIS TIME. HE DENIES N/V, DENIES SOB/DYSPNEA BEYOND HIS BASELINE, HE DENIES CP/PRESSURE, DOES ADMIT TO PAIN TO RIGHT LOWER LEG THAT HAS BEEN PRESENT PRIOR TO TODAY ALTHOUGH HE CAN'T REMEMBER IF IT'S BEEN A FEW DAYS OR MORE THAN A WEEK THAT IT HAS BEEN HURTING, RATES IT 6/10 AND DESCRIBES BOTH SHARP AND DULL IN NATURE. HE REQUESTS TO USE THE BATHROOM AND STANDS AT BEDSIDE FOR VOID IN URINAL WITH AN UNSTEADY GAIT AT THIS TIME. ENCOURAGED PT TO NOT GET UP OOB WITHOUT STAFF PRESENT AND FALL PREVENTION EDUCATION IS PROVIDED. AT THIS TIME PT IS AGREEABLE TO CALLING FOR ASSISTANCE. HE IS SPEAKING IN FULL SENTENCES, AN INTERMITTENT COUGH IS NOTED, PT STATES THAT HE HAS HAD THIS SAME COUGH ONGOING FOR APPROXIMATELY 4 YEARS AND BELIEVES IT TO BE DUE TO SMOKING, EXPIRATORY WHEEZES SCATTERED THROUGHOUT LUNG MENDEZ, SATS 95% ON ROOM AIR AT THIS TIME, NO VISIBLE INCREASED WORK OF BREATHING. HRR, SINUS ON MONITOR, PRESSURES ARE STABLE, NO EDEMA IS NOTED, BRISK CAP REFILL AND STRONG PULSES TO EXTREMITIES. NORMOACTIVE BOWEL TONES, ABD SOFT, NO TENDERNESS REPORTED ON PALPATION. VOIDS CLEAR YELLOW URINE WITHOUT DIFFICULTY. DISCUSSED PLAN OF CARE FOR THIS SHIFT, PT VERBALIZES UNDERSTANDING.
--- NOTE | 2020-01-27 22:00 | NUR ---
SHOWER PT UP TO SHOWER PER HIS REQUEST AND TOLERATED WELL. INQUIRED REGARDING PT'S ABILITY TO OBTAIN HIS MEDICATIONS AN OUTPT PT STATES THAT HE HAS NOT TAKEN HIS ANTISEIZURE MEDICATIONS IN A FEW DAYS. HE STATES THAT THIS IS DUE TO DIFFICULTY OBTAINING MEDICATIONS FROM PHARMACY BOTH RELATED TO INSUFFICIENT FUNDS AT TIMES WELL INABILITY TO KEEP MEDICATIONS SECURE R/T BEING HOMELESS. HE STATES THAT HE HAS HAD MEDICATIONS BOTH LOST AND STOLEN AND WHEN THIS HAPPENS MORE THAN ONCE, THAT THE PHARMACY IS UNABLE TO PROVIDE EARLY REFILLS. HE DOES ALSO REQUEST TO GO OUTSIDE TO SMOKE AT THIS TIME, DISCUSSED SAFETY CONCERNS WITH PATIENT WE[facility] HOSPITAL POLICY, PT IS AGREEABLE TO SIA LANDAVERDE, WILL CONTACT HOSPITALIST SERVICE FOR ORDERS.
--- NOTE | 2020-01-28 03:12 | NUR ---
ASSUMING CARE OF PATIENT- 0313 ASSUMING CARE OF PATIENT. REPORT RECIEVED FROM JUSTINE ABDULLAHI. REVIEWED PERTINENT MEDICAL HISTORY AND MEDICATIONS. PATIENT RESTING IN BED WITH EYES CLOSED. BEDISDE HORIZONTAL BORING MILL OPERATOR SHOWING NSR. VITAL SIGNS HAVE BEEN STABLE. LR CURRENTLY INFUSING THROUGH PIV. BED ALARM ON PATIENT HAS BEEN IMPULSIVE THIS SHIFT. CURTAIN OPEN FOR VISIBILITY.
[2020-01-28 03:37] LABS: BASOPHILS ABSOLUTE AUTO 0.05 K/mm3 (0.00-0.23); BASOPHILS PERCENT AUTO 1 % (0-2); EOSINOPHILS ABSOLUTE AUTO 0.45 K/mm3 (0.00-0.68); EOSINOPHILS PERCENT AUTO 5 % (0-6); Hematocrit 46.4 % (37.0-53.0); Hemoglobin 15.7 g/dL (13.5-17.5); IMMATURE GRAN PERCENT AUTO 0 % (0-1); LYMPHOCYTES ABSOLUTE AUTO 1.47 K/mm3 (0.84-5.20); LYMPHOCYTES PERCENT AUTO 17 % (21-46); MONOCYTES PERCENT AUTO 6 % (4-13); Mean Corpuscular HGB 30.5 pg (26.0-34.0); Mean Corpuscular HGB Conc 33.8 g/dL (31.5-36.5); Mean Corpuscular Volume 90 fL (80-100); Mean Platelet Volume 10.6 fL (9.1-12.4); NEUTROPHILS ABSOLUTE AUTO 6.04 K/mm3 (1.96-9.15); NEUTROPHILS PERCENT AUTO 71 % (41-73); Platelet Count 172 K/mm3 (150-400); RDW Coefficient Variation 12.5 % (11.7-14.2); RDW Standard Deviation 41.3 fL (35.1-46.3); Red Blood Cell Count 5.14 M/mm3 (4.30-5.90); White Blood Cell Count 8.51 K/mm3 (4.00-11.30)
[2020-01-28 03:51] LABS: Anion Gap 2 mmol/L (6-16); Blood Urea Nitrogen 10 mg/dL (8-24); Bun/Creatinine Ratio 12.5 (12.0-20.0); CO2, Blood 30 mmol/L (21-32); Calcium, Blood 8.1 mg/dL (8.5-10.1); Chloride, Blood 110 mmol/L (98-108); Glomerular Filtration Rate >60 (60-); Glucose, Blood 88 mg/dL (70-99); Potassium, Blood 3.9 mmol/L (3.5-5.5); Sodium, Blood 142 mmol/L (136-145)
--- NOTE | 2020-01-28 06:34 | NUR ---
END OF SHIFT SUMMARY PATIENT CALM AND COOPERATIVE THIS SHIFT. UNSTEADY ON HIS FEET. FALL RISK INTERVENTIONS IN PLACE. NO SEIZURE ACTIVITY SINCE ARRIVAL TO ICU. KEPPRA GIVEN. LUNGS WHEEZY UPON AUSCULTATION. TOLERATED ROOM AIR. NPO AT THIS TIME. ACCOUNTING CLERKS SUPERVISOR REFERAL PLACED.
--- NOTE | 2020-01-28 09:19 | NUR ---
BEGINNING OF SHIFT Assumed care at 0700. Bedside report received from Lynda FLETCHER. Pt PCU status. Pt sleeping at time of report. On assessment, pt is alert and oriented X 4. Pleasant and cooperative with care. SR per monitor. BP stable. SpO2 90% or greater RA. Dr Cisneros in to see pt this AM. States pt may be medical floor status without telemetry.
--- NOTE | 2020-01-28 10:30 | NUR ---
CALL PLACED TO TUB WASH OPERATOR, ANNETTE FLETCHER Notified patient care representative that pt is homeless and does not have reliable access to seizure medications. Annette FLETCHER states she will be down to see pt shortly.
--- NOTE | 2020-01-28 11:19 | NUR ---
DISCHARGE / AMA Pt departed from unit against medical advice at 1117. Pt became upset when another staff member responded to his bed alarm. Stated he wanted his IV removed and he was leaving. Pt verbalized displeasure that his clothes were soiled. This RN offered clean clothes to pt prior to departure. Pt refused. Call placed to Dr Cisneros to notify.
== END 2020-01-28 11:50 | disposition left against medical advice (07) ==
LOC: ER 11:15 → PCU 11:16 → ICUE 15:10
PROVIDERS: Physician Assistant; ADMIT Internal Medicine
DX: G40.409 Other generalized epilepsy and epileptic syndromes, not intractable, without status epilepticus (principal); G92 Toxic encephalopathy; F17.210 Nicotine dependence, cigarettes, uncomplicated; Z79.899 Other long term (current) drug therapy; Z88.6 Allergy status to analgesic agent; Z88.2 Allergy status to sulfonamides; Z91.14 Patient's other noncompliance with medication regimen; Z88.1 Allergy status to other antibiotic agents
CPT/HCPCS: 36415; 80048; 80053; 85025; 96365; 96366; 96372; 96375; 96376; 99285-25; G0378; G0480; J1650; J1953; J2060; J3411; J7030; J7050; J7120

== ENCOUNTER 2020-02-24 22:46 | Emergency (ER) | payer OTHER ==
[~2020-02-24] VITALS: Ht 175.3 cm; Wt 71.7 kg
[2020-02-24] MEDS ORDERED: SEIZURE MEDS (22:56)
== END 2020-02-25 00:26 | disposition home or self-care (01) ==
LOC: ER 22:46
DX: S00.81XA Abrasion of other part of head, initial encounter (principal); Z88.6 Allergy status to analgesic agent; Z88.2 Allergy status to sulfonamides; Z88.8 Allergy status to other drugs, medicaments and biological substances; R56.9 Unspecified convulsions; Z86.14 Personal history of Methicillin resistant Staphylococcus aureus infection; F17.210 Nicotine dependence, cigarettes, uncomplicated; Y04.0XXA Assault by unarmed brawl or fight, initial encounter
CPT/HCPCS: 70450; 72125; 94640; 99285-25

== ENCOUNTER 2020-02-25 00:56 | Inpatient (IN) | payer OTHER ==
[~2020-02-25] VITALS: Ht 172.7 cm; Wt 70.8 kg
[~2020-02-25 00:56] MED LIST changes: +SEIZURE MEDS
[2020-02-25 01:24] LABS: BASOPHILS ABSOLUTE AUTO 0.03 K/mm3 (0.00-0.23); BASOPHILS PERCENT AUTO 0 % (0-2); EOSINOPHILS ABSOLUTE AUTO 0.25 K/mm3 (0.00-0.68); EOSINOPHILS PERCENT AUTO 2 % (0-6); Hematocrit 48.8 % (37.0-53.0); Hemoglobin 16.7 g/dL (13.5-17.5); IMMATURE GRAN ABSOLUTE AUTO 0.04 K/mm3 (0.00-0.10); IMMATURE GRAN PERCENT AUTO 0 % (0-1); LYMPHOCYTES ABSOLUTE AUTO 1.67 K/mm3 (0.84-5.20); LYMPHOCYTES PERCENT AUTO 14 % (21-46); MONOCYTES ABSOLUTE AUTO 0.81 K/mm3 (0.16-1.47); MONOCYTES PERCENT AUTO 7 % (4-13); Mean Corpuscular HGB 30.8 pg (26.0-34.0); Mean Corpuscular HGB Conc 34.2 g/dL (31.5-36.5); Mean Corpuscular Volume 90 fL (80-100); Mean Platelet Volume 11.1 fL (9.1-12.4); NEUTROPHILS ABSOLUTE AUTO 9.26 K/mm3 (1.96-9.15); NEUTROPHILS PERCENT AUTO 77 % (41-73); Platelet Count 203 K/mm3 (150-400); RDW Coefficient Variation 12.8 % (11.7-14.2); RDW Standard Deviation 42.4 fL (35.1-46.3); Red Blood Cell Count 5.42 M/mm3 (4.30-5.90); White Blood Cell Count 12.06 K/mm3 (4.00-11.30)
--- NOTE | 2020-02-25 01:25 | NUR ---
REPORT FROM BRIANNE FLETCHER IN ER. AWAITING PT ARRIVAL. ROOM READY.
[2020-02-25 01:39] LABS: PCO2 Arterial 46.4 mmHg (35-45); PO2 Arterial 90.5 mmHg (80-100); pH Blood Arterial 7.33 (7.35-7.45)
--- NOTE | 2020-02-25 01:53 | NUR ---
PT ARRIVES TO ICU ROOM 5 FROM ER VIA GURNEY. PT INTUBATED WITH 8.0 ETT, OG IN PLACE, BOTH SECURED. PT HAS 18G TO RIGHT FA AND AN 18G TO LEFT FA. PROPOFOL INFUSING AT 15MCG/KG/MIN. PT VERY AGITATED, ABLE TO SIT COMPLETELY UP IN BED, PT NOT REDIRECTABLE, DOES NOT FOLLOW COMMANDS. THRASHING AROUND. MULT STAFF AT BEDSIDE TO ASSIST WITH MOVING PT TO ICU BED AND GETTING PT SETTLED. PT IN TAT RESTRAINTS TO ALL 4 EXT DUE TO ABILITY TO BREAK THROUGH SOFT RESTRAINTS. PT HAS PATENT TEMP GONZALEZ DRAINING DARK YELLOW URINE. PT MOVED SAFELY TO ICU BED, RESTRAINTS SECURED, PROPOFOL INCREASED TO 60MCG/KG/MIN. VERBAL ORDER FROM DR SHORT TO START VERSED DRIP. MULT ABRASIONS TO FACE, UNABLE TO CLEARLY ASSESS THEM DUE TO PTS LEVEL OF AGITATION. VENT SETTINGS 16/500/5/35. LUNG SOUNDS CLEAR. PT HAS LOTS OF FROTHY CLEAR ORAL SECRETIONS. ABD SOFT, BS ACTIVE. BACK AND JOSH AREA CLEAN AND CLEAR OF OBVIOUS INJURY. SEE FULL ADMIT ASSESSMENT.
--- NOTE | 2020-02-25 02:00 | NUR ---
DR SHORT AT BEDSIDE FOR EVAL. MORE ORDERS RECEIVED.
[2020-02-25 02:51] LABS: Alanine Aminotransfer (ALT/SGP 30 U/L (12-78); Albumin, Blood 3.7 g/dL (3.4-5.0); Albumin/Globulin Ratio 1.3 (0.8-1.8); Alk Phos 77 U/L (50-136); Anion Gap 7 mmol/L (6-16); Aspartate Aminotrans (AST/SGOT 30 U/L (12-37); Bilirubin, Total 0.2 mg/dL (0.1-1.0); Blood Urea Nitrogen 15 mg/dL (8-24); Bun/Creatinine Ratio 19.7 (12.0-20.0); CO2, Blood 27 mmol/L (21-32); Calcium, Blood 7.8 mg/dL (8.5-10.1); Chloride, Blood 110 mmol/L (98-108); Creatinine, Blood 0.76 mg/dL (0.60-1.20); Ethanol (Alcohol), Blood, Med 78 mg/dL; Globulin, Blood 2.9 g/dL (2.2-4.0); Glomerular Filtration Rate >60 (60-); Glucose, Blood 126 mg/dL (70-99); Potassium, Blood 3.5 mmol/L (3.5-5.5); Sodium, Blood 144 mmol/L (136-145); Total Protein, Blood 6.6 g/dL (6.4-8.2)
[2020-02-25 02:55] LABS: U Amphetamine Screen Not Detected; U Barbituate Screen Not Detected; U Benzodiazapine Screen Not Detected; U Buprenorphine Screen Not Detected; U Cannabinoids Screen DETECTED; U Cocaine Screen Not Detected; U Methadone Screen Not Detected; U Methamphetamine Screen Not Detected; U Opiates Screen Not Detected; U Oxycodone Screen Not Detected; U Phencyclidine Screen Not Detected; U Propoxyphene Screen Not Detected
--- NOTE | 2020-02-25 05:43 | NUR ---
SHIFT SUMMARY NO ACUTE CHANGES SINCE ADMIT TO UNIT. PT REMAINS INTUBATED, SETTINGS 14/500/5/35, SATS >92%. BP STABLE, MONITOR SHOWS SR IN 80'S. PT REMAINS IN TAT X4 RESTRAINTS. PT MORE RESTFUL AND NO LONGER FIGHTING THE TUBE OR RESTRAINTS. PT HAS 18G TO RIGHT FA WITH PROPOFOL INFUSING @ 55 MCG/KG/MIN, DRESSING REMAINS C/D/I. 18G TO LEFT FA WITH VERSED INFUSING @ 3MG/HR AND NS @ TKO, DRESSING C/D/I. PT HAS BANANA BAG INFUSING TO NEW 20G TO LEFT HAND, DRESSING C/D/I. PT HAS 16FR OG TUBE TO LIS, OUTPUT MINIMAL AND YELLOW BROWN IN COLOR. LUNG SOUNDS CLEAR, MODERATE SECRETIONS TO MOUTH NEEDING FREQUENT SUCTIONING. WOUNDS TO FACE CLEANED, NO ACTIVE BLEEDING. WILL REPORT TO ONCOMING RN.
--- NOTE | 2020-02-25 06:45 | NUR ---
IO TO LEFT MELO REMOVED, DRESSING PLACED. NO BLEEDING.
--- NOTE | 2020-02-25 07:40 | NUR ---
ASSUMED CARE: RECEIVED BEDSIDE REPORT FROM CATALINA RN. PT IS NOTED TO BE ON VENT AND CURRENTLY NOT FIGHTING THE VENT. PT IS IN TUFF CUFFS AT THIS TIME THE AMANDA IS PLACED ON THE COMPUTER STAND. WILL CONTINUE TO MONITOR AND CONTINUE TO ASSESS FURTHER.
--- NOTE | 2020-02-25 08:07 | NUR ---
IVF: PROPOFOL @ 55 MCG/KG/MIN WEIGHT OF 70.8 KG VERSED 3MG/HR NS @ 25 ML/HR TKO BANANA BAG @ 150 ML/HR
[2020-02-25 12:53] LABS: BASOPHILS ABSOLUTE AUTO 0.01 K/mm3 (0.00-0.23); BASOPHILS PERCENT AUTO 0 % (0-2); EOSINOPHILS PERCENT AUTO 0 % (0-6); Hematocrit 44.6 % (37.0-53.0); IMMATURE GRAN ABSOLUTE AUTO 0.03 K/mm3 (0.00-0.10); IMMATURE GRAN PERCENT AUTO 0 % (0-1); LYMPHOCYTES ABSOLUTE AUTO 0.45 K/mm3 (0.84-5.20); LYMPHOCYTES PERCENT AUTO 4 % (21-46); MONOCYTES PERCENT AUTO 3 % (4-13); Mean Corpuscular HGB 30.9 pg (26.0-34.0); Mean Corpuscular HGB Conc 33.6 g/dL (31.5-36.5); Mean Corpuscular Volume 92 fL (80-100); Mean Platelet Volume 10.9 fL (9.1-12.4); NEUTROPHILS ABSOLUTE AUTO 9.89 K/mm3 (1.96-9.15); NEUTROPHILS PERCENT AUTO 93 % (41-73); Platelet Count 176 K/mm3 (150-400); RDW Coefficient Variation 12.9 % (11.7-14.2); RDW Standard Deviation 43.8 fL (35.1-46.3); Red Blood Cell Count 4.86 M/mm3 (4.30-5.90); White Blood Cell Count 10.68 K/mm3 (4.00-11.30)
[2020-02-25 13:16] LABS: Alanine Aminotransfer (ALT/SGP 22 U/L (12-78); Albumin, Blood 3.2 g/dL (3.4-5.0); Alk Phos 71 U/L (50-136); Anion Gap 5 mmol/L (6-16); Aspartate Aminotrans (AST/SGOT 20 U/L (12-37); Bilirubin, Total 0.4 mg/dL (0.1-1.0); Blood Urea Nitrogen 11 mg/dL (8-24); Bun/Creatinine Ratio 22.6 (12.0-20.0); CO2, Blood 26 mmol/L (21-32); Calcium, Blood 8.1 mg/dL (8.5-10.1); Chloride, Blood 109 mmol/L (98-108); Creatinine, Blood 0.49 mg/dL (0.60-1.20); Globulin, Blood 3.1 g/dL (2.2-4.0); Glomerular Filtration Rate >60 (60-); Glucose, Blood 115 mg/dL (70-99); Potassium, Blood 4.3 mmol/L (3.5-5.5); Sodium, Blood 140 mmol/L (136-145); Total Protein, Blood 6.3 g/dL (6.4-8.2)
--- NOTE | 2020-02-25 16:18 | NUR ---
TUBE FEEDINGS: STARTED TUBE FEEDINGS AT 1525 VITAL HIGH PROTEIN STARTED AT 25ML/HR WITH WATER 30ML Q4HR.
--- NOTE | 2020-02-25 20:00 | NUR ---
ASSUMED CARE BEDSIDE REPORT WITH TONI RN AT 1905. ASSUMED PT CARE. PT INTUBATED, VENT SETTINGS 14/500/5/35, PT SATS >92%, MARI WELL, NO THRASHING AROUND. PT HAS OG TUBE TO CONTINUOUS TUBE FEEDS INFUSING AT 25ML/HR WITH Q4HR 30ML H20 FLUSHES. PT REMAINS IN TAT X4 EXT. GONZALEZ PATENT AND DRAINING DARK GREEN/BROWN COLORED URINE. PT HAS 18G TO RIGHT FA, DRESSING C/D/I, 18G TO LEFT FA, DRESSING C/D/I, AND 20G TO LEFT HAND. C/D/I. PT HAS NS INF @ 125ML/HR, PROPOFOL @ 60MCG/KG/MIN, PRECEDEX INF @ 0.7MCG/KG/HR. BP STABLE, TELEVISION RECEIVER ANALYZER SHOWS NSR 63. SKIN C/D/I ASIDE FROM SCABS TO FOREHEAD AND CHEEKS. SEE FULL SHIFT ASSESSMENT.
[2020-02-26 03:11] LABS: BASOPHILS ABSOLUTE AUTO 0.03 K/mm3 (0.00-0.23); BASOPHILS PERCENT AUTO 0 % (0-2); EOSINOPHILS ABSOLUTE AUTO 0.03 K/mm3 (0.00-0.68); EOSINOPHILS PERCENT AUTO 0 % (0-6); Hemoglobin 15.2 g/dL (13.5-17.5); IMMATURE GRAN ABSOLUTE AUTO 0.03 K/mm3 (0.00-0.10); IMMATURE GRAN PERCENT AUTO 0 % (0-1); LYMPHOCYTES ABSOLUTE AUTO 1.27 K/mm3 (0.84-5.20); LYMPHOCYTES PERCENT AUTO 11 % (21-46); MONOCYTES ABSOLUTE AUTO 0.55 K/mm3 (0.16-1.47); MONOCYTES PERCENT AUTO 5 % (4-13); Mean Corpuscular HGB 30.2 pg (26.0-34.0); Mean Corpuscular Volume 92 fL (80-100); Mean Platelet Volume 10.6 fL (9.1-12.4); NEUTROPHILS ABSOLUTE AUTO 9.78 K/mm3 (1.96-9.15); NEUTROPHILS PERCENT AUTO 84 % (41-73); Platelet Count 149 K/mm3 (150-400); RDW Coefficient Variation 13.1 % (11.7-14.2); RDW Standard Deviation 43.8 fL (35.1-46.3); Red Blood Cell Count 5.03 M/mm3 (4.30-5.90); White Blood Cell Count 11.69 K/mm3 (4.00-11.30)
[2020-02-26 03:30] LABS: Alanine Aminotransfer (ALT/SGP 22 U/L (12-78); Alk Phos 72 U/L (50-136); Anion Gap 4 mmol/L (6-16); Aspartate Aminotrans (AST/SGOT 13 U/L (12-37); Bilirubin, Total 0.4 mg/dL (0.1-1.0); Blood Urea Nitrogen 12 mg/dL (8-24); Bun/Creatinine Ratio 18.1 (12.0-20.0); CO2, Blood 28 mmol/L (21-32); Calcium, Blood 8.2 mg/dL (8.5-10.1); Chloride, Blood 113 mmol/L (98-108); Creatinine, Blood 0.66 mg/dL (0.60-1.20); Globulin, Blood 2.9 g/dL (2.2-4.0); Glomerular Filtration Rate >60 (60-); Glucose, Blood 118 mg/dL (70-99); Magnesium, Blood 2.3 mg/dL (1.6-2.4); Phosphorus, Blood 3.1 mg/dL (2.5-4.9); Potassium, Blood 3.9 mmol/L (3.5-5.5); Sodium, Blood 145 mmol/L (136-145); Total Protein, Blood 5.9 g/dL (6.4-8.2)
[2020-02-26 05:48] LABS: PCO2 Arterial 37.6 mmHg (35-45); PO2 Arterial 53.6 mmHg (80-100); pH Blood Arterial 7.48 (7.35-7.45)
--- NOTE | 2020-02-26 06:37 | NUR ---
SHIFT SUMMARY PT REMAINS SEDATED AND INTUBATED. HAD WEANED PT DOWN TO 45MCG/KG/MIN IF PROPOFOL AND 0.7MCG/KG/HR OF PRECEDEX PRIOR SPONTANEOUS BREATHING TRIAL. PT TOLERATED TRIAL WELL. WAS ABLE TO FOLLOW COMMANDS AND ANSWER BASIC YES/NO QUESTIONS WITH A NOD. ONCE RETURNING TO / SATS WERE 87-90%, RR 25-35, BP 80'S/50'S WITH MAP >65. HR FROM 60'S TO 120S. CONSULTED DR BELL AT 0620, ORDER FOR 1L LR BOLUS RECEIVED. PT HAS 18G TO RIGHT FA WITH PROPOFOL INFUSING @ 45MCG/KG/MIN, AN 18G TO LEFT FA WITH PRECEDEX INF @ 0.7MCG/KG/HR AND NS @ TKO, PT HAS 20G TO LEFT HAND WITH LR INFUSING AT 999ML/HR. TEMP GONZALEZ PATENT AND DRAINING BROWNISH GREEN URINE. TEMP INCREASED FROM 97 TO 99.3. PT TUBE FEEDING TO OG REMAIN AT 25ML/HR DUE TO HIGH RESIDUALS (500 AT ONE POINT) DURING SHIFT. GASTRIC CONTENTS APPEAR TO BE MOSTLY BILE. SKIN WELL APPEARING WITH NO NEW BREAKDOWN OR INJURIES. NO BM. TAT TO ALL 4 EXT REMAIN SECURED. LUNG SOUNDS COARSE AND WHEEZY, IMPROVED WITH ALB NEB AND MULT EPISODES OF SUCTIONING. SECRETIONS THICK AND YELLOW. WILL REPORT TO ONCOMING SHIFT.
--- NOTE | 2020-02-26 07:32 | NUR ---
Received report from Tyree Bashir lying in bed sedated and intubated. He has 8.0 ET and 26 cm at lips with settings of AC 14, TV 500, FiO2 75% and Peep 7.[address] sats 93%. Dr Mondragon by to see patient and when talking in the room the patient was knoding to answers. He has three IV's all dressings intact and sites WNL's. The 18ga RFA is infusingPropofol at 45 mcg/kg/min. 18ga LFA is infusing LR bolus and NS TKO. 20ga LH is infusing Precedex at 0.7 mcg/kg/hr. He is in 4 point tats for preventing injury to self and pulling at lines and tubes. He is slightly hypotensive in the 90s and ST 107. He has 16Fr temp delong draining to gravity clear yellow urine and temp of 99.5
--- NOTE | 2020-02-26 09:33 | NUR ---
Patient went for CTA and tolerated well. After moving back to bed patient resp status got better and was 100% sats. When back in room was able to reduce FiO2 to 35% and peep 5.[address] sats 98%. Dr Mondragon arrived and informed, Systolic 113 when back in room. Propofol turne dup to 60 mcg/kg/min prior to leaving for CAT scan.
--- NOTE | 2020-02-26 11:20 | NUR ---
Pt. is incubated Offered prayers
--- NOTE | 2020-02-26 11:30 | NUR ---
FiO2 reduced to 25% and sats >90%. Patient resting quietly. No significant changes otherwise. VSS, See EMR
--- NOTE | 2020-02-26 14:29 | NUR ---
No vent setting changes and sats stil >90%. Reduced Propofol to 50mcg/kg/min and tolerating well, Precedex at 0.7 mcg/kg/hr. He remains in 4 point TAT restraing and pulls at restraints at times.TF increased to goal rate of 35ml/hr still no residuals >20ml.
--- NOTE | 2020-02-26 23:02 | NUR ---
ASSUMED CARE OF PT, REPORT RCV'D FROM JUSTINE VELA. PT ALERT TO VERBAL STIMULATION, ABLE TO NOD YES/NO IN RESPONSE TO QUESTIONS. PT INTUBATED, VENT SETTINGS AC 14/500/5/30%. SEDATION PROPOFOL 50 MCG/KG/MIN, PRECEDEX 0.7 MCG/KG/HR. LUNG SOUNDS COARSE T/O, MODERATE AMOUNT OF THICK WHITE/YELLOW SECRETIONS FROM ETT. BT HYPOACTIVE, TUBE FEED INFUSING AT 35 ML/HR WITH 30 ML Q4 H20 FLUSH. Q4 RESIDUAL MONITORING. LR @ 75 ML/HR. BILATERAL UPPER/LOWER TAT IN PLACE. SEE FULL SHIFT ASSESSMENT.
[2020-02-27 04:09] LABS: BASOPHILS ABSOLUTE AUTO 0.02 K/mm3 (0.00-0.23); BASOPHILS PERCENT AUTO 0 % (0-2); EOSINOPHILS ABSOLUTE AUTO 0.06 K/mm3 (0.00-0.68); EOSINOPHILS PERCENT AUTO 1 % (0-6); Hematocrit 44.3 % (37.0-53.0); Hemoglobin 14.5 g/dL (13.5-17.5); IMMATURE GRAN ABSOLUTE AUTO 0.07 K/mm3 (0.00-0.10); IMMATURE GRAN PERCENT AUTO 1 % (0-1); LYMPHOCYTES ABSOLUTE AUTO 0.81 K/mm3 (0.84-5.20); LYMPHOCYTES PERCENT AUTO 7 % (21-46); MONOCYTES ABSOLUTE AUTO 0.59 K/mm3 (0.16-1.47); MONOCYTES PERCENT AUTO 5 % (4-13); Mean Corpuscular HGB 30.3 pg (26.0-34.0); Mean Corpuscular HGB Conc 32.7 g/dL (31.5-36.5); Mean Corpuscular Volume 93 fL (80-100); Mean Platelet Volume 11.8 fL (9.1-12.4); NEUTROPHILS ABSOLUTE AUTO 9.86 K/mm3 (1.96-9.15); NEUTROPHILS PERCENT AUTO 86 % (41-73); Platelet Count 126 K/mm3 (150-400); RDW Coefficient Variation 13.2 % (11.7-14.2); RDW Standard Deviation 44.9 fL (35.1-46.3); Red Blood Cell Count 4.78 M/mm3 (4.30-5.90); White Blood Cell Count 11.41 K/mm3 (4.00-11.30)
[2020-02-27 04:30] LABS: Alanine Aminotransfer (ALT/SGP 17 U/L (12-78); Albumin, Blood 2.5 g/dL (3.4-5.0); Albumin/Globulin Ratio 0.9 (0.8-1.8); Alk Phos 65 U/L (50-136); Anion Gap 2 mmol/L (6-16); Aspartate Aminotrans (AST/SGOT 10 U/L (12-37); Bilirubin, Total 0.6 mg/dL (0.1-1.0); Blood Urea Nitrogen 12 mg/dL (8-24); Bun/Creatinine Ratio 16.6 (12.0-20.0); CO2, Blood 30 mmol/L (21-32); Calcium, Blood 7.7 mg/dL (8.5-10.1); Chloride, Blood 112 mmol/L (98-108); Creatinine, Blood 0.72 mg/dL (0.60-1.20); Globulin, Blood 2.9 g/dL (2.2-4.0); Glomerular Filtration Rate >60 (60-); Glucose, Blood 105 mg/dL (70-99); Magnesium, Blood 1.9 mg/dL (1.6-2.4); Phosphorus, Blood 3.1 mg/dL (2.5-4.9); Potassium, Blood 3.6 mmol/L (3.5-5.5); Sodium, Blood 144 mmol/L (136-145); Total Protein, Blood 5.4 g/dL (6.4-8.2)
[2020-02-27 04:35] LABS: PCO2 Arterial 35.2 mmHg (35-45); PO2 Arterial 61.2 mmHg (80-100); pH Blood Arterial 7.48 (7.35-7.45)
--- NOTE | 2020-02-27 05:32 | NUR ---
SHIFT SUMMARY PT REMAINS INTUBATED, SEDATED. VENT SETTINGS UNCHANGED AC 14/500/5/30%. PROPOFOL @ 60 MCG/KG/MIN, PRECEDEX 0.7 MCG/KG/HR. DESPITE SEDATION PT RESPONSIVE TO VERBAL STIMULI, ABLE TO FOLLOW COMMANDS AND IS REDIRECTABLE. PT PASSED SPONTANEOUS BREATHING TRIAL AND SEDATION VACATION. PT HAS HAD INCREASED SECRETIONS FROM ETT. COPIOUS AMOUNTS OF THICK YELLOW-WHITE SECRETIONS FROM TUBE AND FROM MOUTH D/T CUFF LEAK. LUNG SOUNDS REMAIN COARSE T/O, CLEARS WITH BREATHING TREATMENT AND SUCTIONING SLIGHTLY. VITAL HIGH PROTEIN INFUSING AT GOAL RATE OF 35 ML/HR. 1200 ML URINARY OUTPUT. TMAX 100.5. CURRENT TEMP 99.0. WILL REPORT TO DAYSOKFT NURSE.
--- NOTE | 2020-02-27 07:20 | NUR ---
Received report from Meng FLETCHER. Patient is intubated and sedated with 8.0 ET and 26 cm at lips . His vent settings are AC 14, TV 500, FiO2 25%, Peep 5.0 and sats >90%. He has 20ga LH dressing intact and site WNL's infusing Precedex at 0.7 mcg/kg/hr and LR at 75ml/hr. He also has 18ga RFA IV dressing intact and site WNL's and is infusing Propofol at 60 mcg/kg/min. He has multiple abrasions on face. He has 16Fr temp delong draining grenn tinted urine to gravity and temp 98.8. He is in four point tat rerstraints and will re-eval this am. He has OG in place infusing vital high protien at 35ml/hr and 30ml water flushes Q4.
--- NOTE | 2020-02-27 09:30 | NUR ---
Patient remains on vent same setting. Propofol at 60Mcg/kg/min, Precedex at 0.7 mcg/kg/hr, LR at 75ml/hr. Patient resting and sedated well. He occasionally awakens and knods to question. Elder continues to put out green tinted urine in adequate amounts. Residuals <20ml deleon/green bile output, rate 35ml/hr. Patient tolerating upper extremity restraints only.
--- NOTE | 2020-02-27 11:30 | NUR ---
Propofol placed on standby in hopes to extubate patuient, he is on SIMV currently. No other changes.
--- NOTE | 2020-02-27 12:30 | NUR ---
Patient extubated at 1200 and on RA and sats >95%. Is a little anxious and requires frequent suction for thick deleon mucus coughing up. Medicated for face and arm pain and anxiousness with fentanyl and ativan per SEP. Upper extremity restraints removed at 1200.
--- NOTE | 2020-02-27 13:24 | NUR ---
Pt. is incubatedoffered prayers.
--- NOTE | 2020-02-27 15:16 | NUR ---
Patient has been tolerating sips of water. He remains on RA and sats >95%. Medicated again for pain and anxiousness per MAR. He is tearful at times and easily directable. VSS, See EMR. Elder remains and has yellow urine output with 99.5 low grade fever after blanket placed. currently resting.
--- NOTE | 2020-02-27 15:43 | NUR ---
Upon being asked by JUSTINE Harrell to visit patient, I stand by patient's bed I ask patient a few cursory questions and patient only moans. I ask patient if I could provide prayer for him and he shakes his head affirmingly. I gladly provide prayer. Patient repeats an "Amen" as I close the prayer and patient voices appreciation. I will continue to remain available to patient and family.
--- NOTE | 2020-02-27 18:30 | NUR ---
Patient has been doing well and has phyllis tolerating water by straw. He has diet placed for dinner. He remains on RA and sats >90%. Precedex remains at 0.7 mcg/kg/hr and LR at 75ml/hr. Still has productive cough that he uses yankauer to clear.
--- NOTE | 2020-02-27 20:56 | NUR ---
ASSUMED CARE OF PT, REPORT RCV'D FROM JUSTINE VELA. PT ALERT AND ORIENTED TO SELF, PLACE, COOPERATIVE AND FOLLOWING DIRECTIONS. PT UNABLE TO RECALL WHAT BROUGHT HIM TO THE HOSPITAL BUT CAN RECALL "STAYING BY [employer] AND SOMEONE CALLING EMS ON ME". PT QUICKLY ANGERS AND LASHES OUT VERBALLY SEEMINGLY IN RESPONSE TO VARIOUS MALE STAFF MEMBERS. PT APOLOGETIC AND OCCASIONALLY TEARFUL. RESTRAINTS OFF AT THIS TIME. PRECEDEX 0.7 MCG/KG/HR INFUSING INTO LEFT HAND PIV. REASSESSED SUICIDE SEVERITY, PT DENIES SUICIDAL IDEATION AT THIS TIME, UPDATED CHART TO REFLECT THIS. LUNG SOUNDS COARSE T/O. PT HAS STRONG PRODUCTIVE COUGH. PT ABLE TO INDEPENDENTLY USE YANKAUER TO SUCTION SPUTUM. MODERATE AMOUNT OF THICK YELLOW SPUTUM NOTICED. PT DRINKING WITHOUT DIFFICULTY, ABLE TO SWALLOW PO MEDS EASILY. TEMP GONZALEZ PATENT AND DRAINING TO GRAVITY. LR @75 ML/HR SEE FULL SHIFT ASSESSMENT
[2020-02-28 03:43] LABS: BASOPHILS ABSOLUTE AUTO 0.04 K/mm3 (0.00-0.23); BASOPHILS PERCENT AUTO 0 % (0-2); EOSINOPHILS ABSOLUTE AUTO 0.28 K/mm3 (0.00-0.68); EOSINOPHILS PERCENT AUTO 2 % (0-6); Hemoglobin 14.5 g/dL (13.5-17.5); IMMATURE GRAN ABSOLUTE AUTO 0.05 K/mm3 (0.00-0.10); IMMATURE GRAN PERCENT AUTO 0 % (0-1); LYMPHOCYTES ABSOLUTE AUTO 0.96 K/mm3 (0.84-5.20); LYMPHOCYTES PERCENT AUTO 8 % (21-46); MONOCYTES ABSOLUTE AUTO 0.59 K/mm3 (0.16-1.47); MONOCYTES PERCENT AUTO 5 % (4-13); Mean Corpuscular HGB 30.1 pg (26.0-34.0); Mean Corpuscular Volume 92 fL (80-100); NEUTROPHILS ABSOLUTE AUTO 9.62 K/mm3 (1.96-9.15); NEUTROPHILS PERCENT AUTO 84 % (41-73); Platelet Count 127 K/mm3 (150-400); RDW Coefficient Variation 12.7 % (11.7-14.2); RDW Standard Deviation 43.2 fL (35.1-46.3); Red Blood Cell Count 4.81 M/mm3 (4.30-5.90); White Blood Cell Count 11.54 K/mm3 (4.00-11.30)
[2020-02-28 04:07] LABS: Anion Gap 5 mmol/L (6-16); Blood Urea Nitrogen 7 mg/dL (8-24); Bun/Creatinine Ratio 10.3 (12.0-20.0); CO2, Blood 26 mmol/L (21-32); Calcium, Blood 8.1 mg/dL (8.5-10.1); Chloride, Blood 112 mmol/L (98-108); Creatinine, Blood 0.68 mg/dL (0.60-1.20); Glomerular Filtration Rate >60 (60-); Glucose, Blood 92 mg/dL (70-99); Magnesium, Blood 1.9 mg/dL (1.6-2.4); Phosphorus, Blood 3.6 mg/dL (2.5-4.9); Potassium, Blood 3.7 mmol/L (3.5-5.5); Sodium, Blood 143 mmol/L (136-145)
--- NOTE | 2020-02-28 06:25 | NUR ---
SHIFT SUMMARY NO ACUTE CHANGES OVERNIGHT. PT REMAINED ALERT, OCCASIONAL PERIODS OF CONFUSION REGARDING PLACE AND SITUATION. PT COOPERATIVE WITH CARE. LUNG SOUNDS REMAIN COARSE BUT IMPROVING. PT CONTINUES TO HAVE PRODUCTIVE COUGH WITH THICK YELLOW SPUTUM. PT WEAK BUT ABLE TO ASSIST WITH CARE AND ABLE TO INDEPENDENTLY USE YANKUAR TO CLEAR SECRETIONS. PT ON 1-2 L NC WHILE SLEEPING. PT HAD 3000 ML URINARY OUTPUT FROM GONZALEZ CATHETER. PRECEDEX GTT @ 0.7 MCG/KG/HR WITH ATIVAN 2 MG PRN. WILL REPORT TO DAYSHIFT NURSE.
--- NOTE | 2020-02-28 07:10 | NUR ---
ASSUMED CARE: RECEIVED REPORT FROM NOC RN. PT APPEARS TO BE SLEEPING WITH HIS BIBLE IN HIS HANDS. EVEN CHEST RISE AND FALL AND O2 SATS ARE NOTED TO BE >92%. VSS AT THIS TIME. WILL REVIEW ORDERS AND LABS. WILL CONTINUE TO MONITOR AND ASSESS FURTHER.
--- NOTE | 2020-02-28 10:59 | NUR ---
NO IV ACCESS: DISCUSSED WITH PLANT CONTROLS SPECIALIST ABOUT PT NOT HAVING ANY IV ACCESS, AND POTENTIAL OF IV ATTEMPTS BEING A SOURCE OF AGITATION FOR PT. CALLED DR VILLEGAS TO SEE IF PT COULD REMAIN WITHOUT IV AND CHANGE ALL IV MEDS TO A PO EQUIVALANT. DR VILLEGAS STATES IV ACCESS IS NEEDED AND IF PT ATTEMPTS TO LEAVE AMA WE WILL HAVE TO PUT A 2MD HOLD ON THE PT. PSYCH CONSULT WAS PLACED ON THE PT.
--- NOTE | 2020-02-28 12:13 | NUR ---
CERTIFIED APPLIANCE SERVICE TECHNICIAN IN TO SEE PT: PACKET OF COMMUNITY RESOURCES GIVEN TO PT. REPORT FROM DEBORA Whitman OF PT BECOMING UPSET WITH HER ABOUT ONLY BEING GIVEN A PACKET OF INFORMATION INSTEAD OF BEING SET UP WITH A PLACE TO LIVE. WILL CONTINUE TO MONITOR
--- NOTE | 2020-02-28 13:21 | NUR ---
CONSULT: CALLED DR CIFUENTES FOR CONSULT. STATED HE WILL MOST LIKELY NOT BE ABLE TO SEE PT TODAY D/T SCHEDULE. FACE SHEET SENT DOWN TO ED PER REQUEST.
--- NOTE | 2020-02-28 17:55 | NUR ---
SHIFT SUMMARY: PT HAS BEEN COOPERATIVE TODAY. ALLOWED THE NEW GRAD TO PLACE AN IV WITH 2 ATTEMPTS. WAS COOPERATIVE WITH SPEECH THERAPY AND HAS BEEN VERY THANKFUL FOR CARE GIVEN T/O THE DAY. PT WAS UP TO THE SHOWER THIS MORNING AND WAS ABLE TO WALK WITH 2 PERSON ASSIST. PT SPEECH IS VERY SLURED AND APPEARS TO BE A LITTLE LITHARGIC, BUT IS ALERT AND RESPONDS TO ANY VERBAL STEMULI. HR WAS ELIVATED FOR A PERIOD OF TIME TODAY. PT DENIED ANY CHEST PAIN, STATES SOME DIZZYNESS, BUT DENIES IT BEING NEW. PT STATED HIS HEART RATE INCREASES IF HE IS ABOUT TO HAVE A SEIZURE. NO SEIZURE ACTIVITY NOTED T/O THE DAY. PT CURRENTLY ONLY HAS ONE IV, BUT WAS NOT GOING TO PUSH FOR A SECOND IV WITH PT BEING VERY COOPERATIVE. GRANDMOTHER CALLED AND ASKED FOR AN UPDATE, PT GAVE VERBAL OK TO TALK WITH HIS GRANDMOTHER TO WHY HE IS IN THE HOSPITAL AND WHAT BROUGHT HIM HERE. GRANDMOTHER STATES HE IS MENTALY ILL AND NEEDS LIVING ASSISTANCE, BUT HER AND HER ARE UNABLE TO ASSIST D/T BEING IN THEIR 80'S. UPDATED ON PT BEING GIVEN INFORMATION ON ASSISTANCE HE CAN GET. WILL CONTINUE TO MONITOR.
--- NOTE | 2020-02-28 20:30 | NUR ---
INITAL SHIFT ASSESSMENT PT IS ALERT AND ORIENTED TO SELF AND SITUATION. HE IS COOPERATIVE WITH THIS RN'S INITAL SHIFT ASSESSMENT. HE DENIES ANY PAIN OR DISCOMFORT CURRENLTY. HE IS CON'T TO STATE THAT AT SOME POINT TONIGHT HE WILL BE GOING OUTSIDE TO GO SMOKE. VITALS ARE STABLE AT THIS TIME. PT HAS BANANA BAG RUNNING INTO IV AT THIS TIME. SEE EMAR FOR ALL ADMINISTERED MEDICATIONS. PT STATES HE DOES FEEL IRRITABLE AT THIS TIME. WILL GIVE HIM SOME ATIVAN. PT TOOK HIS NIGHT MEDS WITH NO ISSUES. CALL LIGHT REVIEWED WITH PT. ENCOURAGED HIM TO CALL WHENEVER HE NEEDED TO GET UP AND USE URINAL. WILL CON'T TO MONITOR AND KEEP PT SAFE T/O REMAINDER OF SHIFT.
--- NOTE | 2020-02-29 05:05 | NUR ---
SHIFT SUMMARY PT CON'T TO BE STABLE. HE HAS NO CHANGES FROM BASELINE. THERE ARE TIMES WHEN HE IS VERY IRRITATED WITH ANY CARE. PT HAS BEEN COOPERATIVE FOR THE MOST PART T/O SHIFT. HE HAS STOOD AT BEDSIDE A FEW TIMES AND IS VERY UNSTEADY WITH HIS GAIT. PT HAS NOT PULLED AT ANY OF HIS LINES OR CORDS. PT HAS EATEN A SANDWHICH WELL OTHER SNACKS. VITALS HAVE BEEN STABLE T/O SHIFT. WILL CON'T TO MONITOR AND KEEP PT SAFE TILL REPORT TO ONCOMING RN.
[2020-02-29 07:37] LABS: BASOPHILS ABSOLUTE AUTO 0.03 K/mm3 (0.00-0.23); BASOPHILS PERCENT AUTO 0 % (0-2); EOSINOPHILS ABSOLUTE AUTO 0.36 K/mm3 (0.00-0.68); EOSINOPHILS PERCENT AUTO 5 % (0-6); Hematocrit 42.9 % (37.0-53.0); Hemoglobin 14.3 g/dL (13.5-17.5); IMMATURE GRAN ABSOLUTE AUTO 0.02 K/mm3 (0.00-0.10); IMMATURE GRAN PERCENT AUTO 0 % (0-1); LYMPHOCYTES ABSOLUTE AUTO 0.67 K/mm3 (0.84-5.20); LYMPHOCYTES PERCENT AUTO 9 % (21-46); MONOCYTES ABSOLUTE AUTO 0.59 K/mm3 (0.16-1.47); MONOCYTES PERCENT AUTO 8 % (4-13); Mean Corpuscular HGB 30.6 pg (26.0-34.0); Mean Corpuscular HGB Conc 33.3 g/dL (31.5-36.5); Mean Corpuscular Volume 92 fL (80-100); Mean Platelet Volume 10.7 fL (9.1-12.4); NEUTROPHILS ABSOLUTE AUTO 5.97 K/mm3 (1.96-9.15); NEUTROPHILS PERCENT AUTO 78 % (41-73); Platelet Count 148 K/mm3 (150-400); RDW Coefficient Variation 12.7 % (11.7-14.2); RDW Standard Deviation 42.5 fL (35.1-46.3); Red Blood Cell Count 4.68 M/mm3 (4.30-5.90); White Blood Cell Count 7.64 K/mm3 (4.00-11.30)
--- NOTE | 2020-02-29 07:47 | NUR ---
pt is attempting to sit up, but keeps falling back on the bed, somewhat agitated, when asked whats going on he said he can't sit up because of all the lines. asked him to get himself back into the bed, which he did. he voided on the floor, and some on his beside table, a/ox3, calmed down, asked for tylenol, v.s. stable, afebrile, lungs are clear t/o, resp even and unlabored, no cough noted, hrr, monitor in place running sr, see strip, no edema noted, ppp+2, cap refill <3sec, vs stable, afebrile, iv sites are clear and patent, btx4, abd flat soft nontender, voids without diff, skin has multiple abrasions to face, criss starr, call light in reach.
[2020-02-29 08:16] LABS: Anion Gap 3 mmol/L (6-16); Blood Urea Nitrogen 14 mg/dL (8-24); Bun/Creatinine Ratio 18.9 (12.0-20.0); CO2, Blood 29 mmol/L (21-32); Calcium, Blood 8.4 mg/dL (8.5-10.1); Chloride, Blood 111 mmol/L (98-108); Creatinine, Blood 0.74 mg/dL (0.60-1.20); Glomerular Filtration Rate >60 (60-); Glucose, Blood 98 mg/dL (70-99); Potassium, Blood 3.6 mmol/L (3.5-5.5); Sodium, Blood 143 mmol/L (136-145)
--- NOTE | 2020-02-29 08:38 | NUR ---
ASSUMED CARE ASSUMED CARE OF PT AT 0830. REPORT RECEIVED FROM JUSTINE PORTILLO. PT AWAKE, ALERT, COOPERATIVE WITH CARE. AMBULATING TO SHOWER WITH PCT. DR. VILLEGAS ROUNDED ON PT AND PLAN TO TRANSFER TO MEDICAL FLOOR. PT REPORTING LEFT KNEE FEELS WEAK AND PAINFUL, REQUESTING XRAY, PLAN TO DISCUSS WITH DR. LUNA WHEN SHE ROUNDS. WILL CONTINUE TO MONITOR PT.
--- NOTE | 2020-02-29 09:36 | NUR ---
REPORT CALLED TO MED FLOOR JUSTINE GARZA. PT TRANSFERRED TO [facility] VIA WHEELCHAIR WITH PCT AND ALL BELONGINGS AT THIS TIME.
--- NOTE | 2020-02-29 17:57 | NUR ---
SHIFT SUMMARY- PT TRANSFERED FROM ICU THIS MORNING. HE HAS BEEN PLESANT AND COOPERATIVE THIS SHIFT. HE WANTED TO GO OUTSIDE TO SMOKE, I TOLD HIM I WAS OK WITH IT IF A FAMILY MEMBER TOOK HIM OUT BUT THAT WE DID NOT HAVE THE STAFF TO TAKE HIM OUT AND HE WAS UNSAFE TO AMBULATE ALONE. HE GOT A MILD BLOODY NOSE THAT QUICKLY STOPPED WITH PRESSURE. HE WORKED WITH PHYSICAL THERAPY AND WAS VERY UNSTEADY ON HIS FEET. HE IS USING THE URINAL AT BEDSIDE.
--- NOTE | 2020-02-29 21:31 | NUR ---
PATIENT READING IN BED. COOPERATIVE AT THIS TIME. REPORTS HE WANTS TO GO OUTSIDE TO SMOKE. NICOTINE PATCH IN PACE AND PATIENT REMINDED HE NEEDS TO STAY IN BED AT THIS TIME. USES URINAL AT BEDSIDE. CALL LIGHT IN REACH.
--- NOTE | 2020-03-01 04:18 | NUR ---
SHIFT SUMMARY PATIENT HAD NO ACUTE CHANGES OBSERVED. AXOX 3. PATIENT WEAK AND SHAKEY AT THIS TIME. USES URINAL AT BEDSIDE. NICOTINE PATCH IN PLACE. REMINDED HE CANNOT GO OUTSIDE TO SMOKE WHEN ASKED. PIV REMAINS INTACT. VSS/AFEBRILE. DENIES PAIN, SOB, AND N/V. BLOODY NOSE X ONE RESOLVED. NO AGRESSIVE BEHAVIOR OBSERVED. BED ALARM FOR SAFETY. READING FIRST PART OF SHIFT. CALL LIGHT IN REACH. BED IN LOWEST POSITION. WILL CONTINUE TO MONITOR UNTIL DAY SHIFT NURSE ASSUMES CARE.
--- NOTE | 2020-03-01 19:16 | NUR ---
SHIFT SUMMARY PT AWAKE DURING SHIFT REPORT, SITTING UP TO EOB. PT WANTING TO GO OUT TO K. PT UNABLE TO GO OUT ON HIS OWN. NICOTINE PATCH OFFERED AND GIVEN. PT PLEASANT AND CO-OP THRU OUT THE DAY. ABLE TO WORK WITH PT/OT AND WALKED IN HALLS WITH THEM AND LATER WITH STAFF, MULTIPLE TIMES. PT MEDICALLY STABLE AND ABLE TO D/C. PT HOMELESS, BUT UNABLE TO GO TO [facility]. CONTACTED AND THEN CONTACTED [facility] TO VERIFY. PT CONTACTED GRANDPARENTS TO D/C THERE, BUT UNABLE TO TAKE PT HOME, "BEING 89 YRS OLD AND NO EXTRA BEDROOM IN HOUSE". PT LATER FOUND SMOKING IN RM. CIGARETTES AND SEAFOOD CLERK LOCKED IN PT'S DRAWER. PT REQUESTED IV TO RFA D/C'D FOR TENDERNESS. DR VILLEGAS NOTIFIED. PT LATER REPORTED THAT HE WAS LEAVING. ATTEMPTED TO EDU PT AND DISCUSS OPTIONS. PT WAS PLEASANT, BUT STATED THAT HIS "ANXIETY WAS TOO HIGH TO STAY". PT SIGNED AMA FORM AND TOOK BELONGINGS WITH HIM. PER PT, HIS GRANDPARENTS WAITING DOWNSTAIRS TO GIVE HIM A RIDE. LUPILLO RN NOTIFIED.
== END 2020-03-01 18:43 | disposition left against medical advice (07) | DRG 894 ==
LOC: ER 00:56 → ICUW 00:58 → ICUE 00:58 → ICUW 00:58 → ER 01:06 → ICUW 01:46 → ICUE 01:49 → MEDS 02:26 → ICUE 02-26 09:57 → MEDS 02-29 09:41
PROVIDERS: Emergency Medicine; Family Medicine; Internal Medicine Critical Care Medicine; ADMIT Internal Medicine
PROC: 0BH17EZ Insertion of Endotracheal Airway into Trachea, Via Natural or Artificial Opening (ICD-10-PCS; principal; 2020-02-26)
PROC: 5A1945Z Respiratory Ventilation, 24-96 Consecutive Hours (ICD-10-PCS; 2020-02-26)
DX: F19.159 Other psychoactive substance abuse with psychoactive substance-induced psychotic disorder, unspecified (principal); J96.01 Acute respiratory failure with hypoxia; J18.9 Pneumonia, unspecified organism; F23 Brief psychotic disorder; J98.11 Atelectasis; F10.129 Alcohol abuse with intoxication, unspecified; F31.9 Bipolar disorder, unspecified; G40.909 Epilepsy, unspecified, not intractable, without status epilepticus; F17.210 Nicotine dependence, cigarettes, uncomplicated; Z65.3 Problems related to other legal circumstances; Z91.19 Patient's noncompliance with other medical treatment and regimen; Y09 Assault by unspecified means; F19.10 Other psychoactive substance abuse, uncomplicated; S01.412A Laceration without foreign body of left cheek and temporomandibular area, initial encounter; S01.81XA Laceration without foreign body of other part of head, initial encounter; S01.411A Laceration without foreign body of right cheek and temporomandibular area, initial encounter; Z78.1 Physical restraint status; Z59.0 Homelessness
CPT/HCPCS: 31500; 31720; 36415; 36600; 36680; 51702; 71045; 71260; 80048; 80053; 82330; 82803; 82947; 83735; 84100; 84145; 85025; 87070; 87077; 87185; 87205; 90471; 90714; 92526; 92610; 94002; 94003; 94640; 96361; 96365; 96366; 96372; 96374-59; 96375; 96375-59; 96376; 97110; 97112; 97162; 99285-25; A9270; G0378; G0480; J0330; J0456; J0696; J1650; J2060; J2250; J2704; J2930; J3010; J3411; J3475; J7030; J7042; J7050; J7120; Q9967

== ENCOUNTER 2020-03-08 18:58 | Emergency (ER) | payer OTHER ==
[~2020-03-08] VITALS: Ht 172.7 cm; Wt 80.7 kg
[2020-03-08] MEDS ORDERED: LEVETIRACETAM500 MG PO (19:41)
== END 2020-03-08 20:40 | disposition home or self-care (01) ==
LOC: ER 18:58
DX: G40.909 Epilepsy, unspecified, not intractable, without status epilepticus (principal); Z88.6 Allergy status to analgesic agent; Z88.2 Allergy status to sulfonamides; Z88.1 Allergy status to other antibiotic agents; F31.9 Bipolar disorder, unspecified; F17.200 Nicotine dependence, unspecified, uncomplicated; Z23 Encounter for immunization
CPT/HCPCS: 36415; 90471; 90714; 96365; 99284-25; J1953

== ENCOUNTER 2020-04-05 15:26 | Emergency (ER) | payer OTHER ==
[~2020-04-05] VITALS: Ht 175.3 cm; Wt 86.2 kg
[~2020-04-05 15:26] MED LIST changes: +LEVETIRACETAM500 MG PO
[2020-04-05 16:00] LABS: BASOPHILS ABSOLUTE AUTO 0.06 K/mm3 (0.00-0.23); BASOPHILS PERCENT AUTO 1 % (0-2); EOSINOPHILS ABSOLUTE AUTO 0.57 K/mm3 (0.00-0.68); EOSINOPHILS PERCENT AUTO 7 % (0-6); Hematocrit 51.1 % (37.0-53.0); Hemoglobin 17.2 g/dL (13.5-17.5); IMMATURE GRAN ABSOLUTE AUTO 0.01 K/mm3 (0.00-0.10); IMMATURE GRAN PERCENT AUTO 0 % (0-1); LYMPHOCYTES ABSOLUTE AUTO 1.86 K/mm3 (0.84-5.20); LYMPHOCYTES PERCENT AUTO 23 % (21-46); MONOCYTES ABSOLUTE AUTO 0.45 K/mm3 (0.16-1.47); MONOCYTES PERCENT AUTO 6 % (4-13); Mean Corpuscular HGB Conc 33.7 g/dL (31.5-36.5); Mean Corpuscular Volume 89 fL (80-100); Mean Platelet Volume 10.1 fL (9.1-12.4); NEUTROPHILS ABSOLUTE AUTO 5.21 K/mm3 (1.96-9.15); NEUTROPHILS PERCENT AUTO 64 % (41-73); Platelet Count 230 K/mm3 (150-400); RDW Coefficient Variation 12.7 % (11.7-14.2); RDW Standard Deviation 41.9 fL (35.1-46.3); Red Blood Cell Count 5.74 M/mm3 (4.30-5.90); White Blood Cell Count 8.16 K/mm3 (4.00-11.30)
[2020-04-05 16:17] LABS: Alanine Aminotransfer (ALT/SGP 19 U/L (12-78); Albumin, Blood 4.2 g/dL (3.4-5.0); Albumin/Globulin Ratio 1.1 (0.8-1.8); Alk Phos 86 U/L (50-136); Anion Gap 6 mmol/L (6-16); Aspartate Aminotrans (AST/SGOT 12 U/L (12-37); Bilirubin, Total 0.3 mg/dL (0.1-1.0); Blood Urea Nitrogen 11 mg/dL (8-24); Bun/Creatinine Ratio 18.5 (12.0-20.0); CO2, Blood 28 mmol/L (21-32); Calcium, Blood 8.8 mg/dL (8.5-10.1); Chloride, Blood 113 mmol/L (98-108); Globulin, Blood 3.8 g/dL (2.2-4.0); Glomerular Filtration Rate >60 (60-); Glucose, Blood 89 mg/dL (70-99); Potassium, Blood 3.8 mmol/L (3.5-5.5); Sodium, Blood 147 mmol/L (136-145)
[2020-04-05] MEDS ORDERED: LEVE500 PO (17:26)
== END 2020-04-05 19:56 | disposition home or self-care (01) ==
LOC: ER 15:26
PROVIDERS: Physician Assistant
DX: G40.909 Epilepsy, unspecified, not intractable, without status epilepticus (principal); F17.200 Nicotine dependence, unspecified, uncomplicated; Z76.0 Encounter for issue of repeat prescription; Z88.6 Allergy status to analgesic agent; Z88.2 Allergy status to sulfonamides; Z88.1 Allergy status to other antibiotic agents; Z79.899 Other long term (current) drug therapy
CPT/HCPCS: 36415; 70450; 80053; 85025; 96374; 99285-25; J2060

== ENCOUNTER 2020-04-25 09:34 | Emergency (ER) | payer OTHER ==
[~2020-04-25] VITALS: Ht 175.3 cm; Wt 68.0 kg
== END 2020-04-25 10:06 | disposition home or self-care (01) ==
LOC: ER 09:34
DX: G40.909 Epilepsy, unspecified, not intractable, without status epilepticus (principal); F17.200 Nicotine dependence, unspecified, uncomplicated; Z79.899 Other long term (current) drug therapy
CPT/HCPCS: 99284

== ENCOUNTER 2020-05-10 20:02 | Emergency (ER) | payer OTHER ==
[~2020-05-10] VITALS: Ht 175.3 cm; Wt 83.9 kg
[2020-05-10 20:58] LABS: BASOPHILS ABSOLUTE AUTO 0.04 K/mm3 (0.00-0.23); BASOPHILS PERCENT AUTO 0 % (0-2); EOSINOPHILS ABSOLUTE AUTO 0.39 K/mm3 (0.00-0.68); EOSINOPHILS PERCENT AUTO 4 % (0-6); Hematocrit 51.8 % (37.0-53.0); Hemoglobin 17.6 g/dL (13.5-17.5); IMMATURE GRAN ABSOLUTE AUTO 0.02 K/mm3 (0.00-0.10); IMMATURE GRAN PERCENT AUTO 0 % (0-1); LYMPHOCYTES PERCENT AUTO 16 % (21-46); MONOCYTES ABSOLUTE AUTO 0.51 K/mm3 (0.16-1.47); MONOCYTES PERCENT AUTO 5 % (4-13); Mean Corpuscular HGB 29.4 pg (26.0-34.0); Mean Corpuscular Volume 87 fL (80-100); Mean Platelet Volume 10.8 fL (9.1-12.4); NEUTROPHILS ABSOLUTE AUTO 7.65 K/mm3 (1.96-9.15); NEUTROPHILS PERCENT AUTO 75 % (41-73); Platelet Count 232 K/mm3 (150-400); RDW Coefficient Variation 12.2 % (11.7-14.2); Red Blood Cell Count 5.99 M/mm3 (4.30-5.90); White Blood Cell Count 10.21 K/mm3 (4.00-11.30)
[2020-05-10 21:15] LABS: Ethanol (Alcohol), Blood, Med 105 mg/dL; Magnesium, Blood 2.3 mg/dL (1.6-2.4)
[2020-05-10 21:16] LABS: Alanine Aminotransfer (ALT/SGP 20 U/L (12-78); Albumin, Blood 4.2 g/dL (3.4-5.0); Albumin/Globulin Ratio 1.2 (0.8-1.8); Alk Phos 89 U/L (50-136); Anion Gap 9 mmol/L (6-16); Aspartate Aminotrans (AST/SGOT 16 U/L (12-37); Bilirubin, Total 0.3 mg/dL (0.1-1.0); Blood Urea Nitrogen 10 mg/dL (8-24); Bun/Creatinine Ratio 19.9 (12.0-20.0); CO2, Blood 26 mmol/L (21-32); Calcium, Blood 8.7 mg/dL (8.5-10.1); Chloride, Blood 107 mmol/L (98-108); Globulin, Blood 3.4 g/dL (2.2-4.0); Glomerular Filtration Rate >60 (60-); Glucose, Blood 80 mg/dL (70-99); Potassium, Blood 3.7 mmol/L (3.5-5.5); Sodium, Blood 142 mmol/L (136-145); Total Protein, Blood 7.6 g/dL (6.4-8.2)
[2020-05-11 00:11] LABS: Source, Urine Voided
[2020-05-11 00:17] LABS: Bilirubin, Urine Neg (Neg); Blood, Urine Neg (Neg); Glucose Qualitative, Urine 2+ (Neg); Ketones, Urine Neg (Neg); Leukocyte Esterase, Urine Neg (Neg); Nitrite, Urine Neg (Neg); Protein, Urine Neg (Neg); Urobilinogen, Urine NORM (Normal)
[2020-05-11 00:18] LABS: Appearance, Urine Clear (Clear); Color, Urine Yellow (P-Yellow)
[2020-05-11 00:27] LABS: U Amphetamine Screen DETECTED; U Barbituate Screen Not Detected; U Benzodiazapine Screen Not Detected; U Buprenorphine Screen Not Detected; U Cannabinoids Screen DETECTED; U Cocaine Screen Not Detected; U Methadone Screen Not Detected; U Methamphetamine Screen DETECTED; U Opiates Screen Not Detected; U Oxycodone Screen Not Detected; U Phencyclidine Screen Not Detected; U Propoxyphene Screen Not Detected
[2020-05-11 00:31] LABS: CPK Creatine Kinase 162 U/L (39-308); Creatine Kinase MB 4.8 ng/mL (0.0-3.6)
== END 2020-05-11 02:15 | disposition home or self-care (01) ==
LOC: ER 20:02
PROVIDERS: Emergency Medicine
DX: R53.1 Weakness (principal); G40.909 Epilepsy, unspecified, not intractable, without status epilepticus; F31.81 Bipolar II disorder; F17.200 Nicotine dependence, unspecified, uncomplicated; Z79.899 Other long term (current) drug therapy; Z88.6 Allergy status to analgesic agent; Z88.2 Allergy status to sulfonamides; Z88.1 Allergy status to other antibiotic agents; Z59.0 Homelessness
CPT/HCPCS: 36415; 71045; 72131; 80053; 81003; 82550; 82553; 83735; 85025; 96365; 96366; 96367; 99285-25; G0480; J1953; J3411; J3475; J7042

== ENCOUNTER 2020-05-11 12:07 | Observation (INO) | payer OTHER ==
[~2020-05-11] VITALS: Ht 175.3 cm; Wt 83.9 kg
[2020-05-11 17:49] LABS: BASOPHILS ABSOLUTE AUTO 0.02 K/mm3 (0.00-0.23); BASOPHILS PERCENT AUTO 0 % (0-2); EOSINOPHILS ABSOLUTE AUTO 0.22 K/mm3 (0.00-0.68); EOSINOPHILS PERCENT AUTO 3 % (0-6); Hematocrit 47.4 % (37.0-53.0); Hemoglobin 15.9 g/dL (13.5-17.5); IMMATURE GRAN ABSOLUTE AUTO 0.01 K/mm3 (0.00-0.10); IMMATURE GRAN PERCENT AUTO 0 % (0-1); LYMPHOCYTES ABSOLUTE AUTO 1.24 K/mm3 (0.84-5.20); LYMPHOCYTES PERCENT AUTO 17 % (21-46); MONOCYTES ABSOLUTE AUTO 0.57 K/mm3 (0.16-1.47); MONOCYTES PERCENT AUTO 8 % (4-13); Mean Corpuscular HGB 29.3 pg (26.0-34.0); Mean Corpuscular HGB Conc 33.5 g/dL (31.5-36.5); Mean Corpuscular Volume 88 fL (80-100); Mean Platelet Volume 10.9 fL (9.1-12.4); NEUTROPHILS ABSOLUTE AUTO 5.22 K/mm3 (1.96-9.15); NEUTROPHILS PERCENT AUTO 72 % (41-73); Platelet Count 214 K/mm3 (150-400); RDW Coefficient Variation 12.5 % (11.7-14.2); RDW Standard Deviation 40.1 fL (35.1-46.3); Red Blood Cell Count 5.42 M/mm3 (4.30-5.90); White Blood Cell Count 7.28 K/mm3 (4.00-11.30)
[2020-05-11 18:03] LABS: Alanine Aminotransfer (ALT/SGP 19 U/L (12-78); Albumin, Blood 3.4 g/dL (3.4-5.0); Albumin/Globulin Ratio 1.1 (0.8-1.8); Alk Phos 73 U/L (50-136); Anion Gap 4 mmol/L (6-16); Aspartate Aminotrans (AST/SGOT 23 U/L (12-37); Bilirubin, Total 0.4 mg/dL (0.1-1.0); Blood Urea Nitrogen 16 mg/dL (8-24); Bun/Creatinine Ratio 24.5 (12.0-20.0); CO2, Blood 29 mmol/L (21-32); Calcium, Blood 8.8 mg/dL (8.5-10.1); Chloride, Blood 111 mmol/L (98-108); Creatinine, Blood 0.65 mg/dL (0.60-1.20); Glomerular Filtration Rate >60 (60-); Glucose, Blood 97 mg/dL (70-99); Potassium, Blood 4.2 mmol/L (3.5-5.5); Sodium, Blood 144 mmol/L (136-145); Total Protein, Blood 6.4 g/dL (6.4-8.2)
--- NOTE | 2020-05-11 18:35 | NUR ---
PT ARRIVED TO ROOM 330 FROM ER VIA GURNEY, PT SLEEPING HEAVILY, DID NOT AWAKEN WITH TRANSFER TO BED. ARRIVED WITH IV VANCO, FLUID BOLUS AND BANNANA BAG RUNNING. ATTENDS PLACED ON PT AFTER HE VOIDED IN THE BED AND ON THE FLOOR WHEN TURNING, WILL CONTINUE TO MONITOR AND REPORT TO ONCOMING RN
[2020-05-12 05:01] LABS: Hematocrit 45.7 % (37.0-53.0); Hemoglobin 15.4 g/dL (13.5-17.5); Mean Corpuscular HGB 29.7 pg (26.0-34.0); Mean Corpuscular HGB Conc 33.7 g/dL (31.5-36.5); Mean Corpuscular Volume 88 fL (80-100); Mean Platelet Volume 10.9 fL (9.1-12.4); Platelet Count 199 K/mm3 (150-400); RDW Coefficient Variation 12.6 % (11.7-14.2); RDW Standard Deviation 40.6 fL (35.1-46.3); Red Blood Cell Count 5.19 M/mm3 (4.30-5.90); White Blood Cell Count 6.66 K/mm3 (4.00-11.30)
[2020-05-12 05:31] LABS: Anion Gap 4 mmol/L (6-16); Blood Urea Nitrogen 10 mg/dL (8-24); Bun/Creatinine Ratio 13.7 (12.0-20.0); CO2, Blood 28 mmol/L (21-32); Calcium, Blood 8.1 mg/dL (8.5-10.1); Chloride, Blood 111 mmol/L (98-108); Creatinine, Blood 0.73 mg/dL (0.60-1.20); Glomerular Filtration Rate >60 (60-); Glucose, Blood 100 mg/dL (70-99); Potassium, Blood 4.2 mmol/L (3.5-5.5); Sodium, Blood 143 mmol/L (136-145)
--- NOTE | 2020-05-12 05:48 | NUR ---
TROUBLE OPERATOR SUMMARY PT HAS WAS SLEEPING AT THE START OF THE SHIFT DUE TO RECIEVING A DOSE OF B-52 ON DAY SHIFT. AFTER THE PT WAS WOKE UP AND HAD A CIWA OF 12 AND WAS MEDICATED PER EMAR. PT HAS SLEPT FOR MOST OF THE SHIFT W CIWA OF 2. PROVIDER WAS CONTACTED AND GAVE AN ORDER TO ADVANCE DIET TOLERATED AND ORDERED FLEXERIL FOR THE PT'S SEVERE LEG CRAMPS. PT HAS BEEN PLEASANT WHEN AWAKE BUT IS VERY JUMPY WHEN TOUCHED. WCTM.
[2020-05-12 17:11] LABS: Vancomycin, Trough 14.1 ug/mL (5.0-10.0)
--- NOTE | 2020-05-12 17:29 | NUR ---
SHIFT SUMMARY PT IS AO TO SELF, VERBALIZED DATE/TIME. PT DENIES PAIN, N/V, SOB. CIWA SCORES 0-2 THROUGHOUT SHIFT. PT HAD MRI OF SPINE AND IMAGES NON-DIAGNOSTIC DUE TO PT MOVEMENT DURING PROCEDURE. PT HAD A NON-INJURY FALL THIS AM WHILE USING THE URINAL AT SIDE OF THE BED. SEE POST-FALL ASSESSMENT DOCUMENTATION. CIWA'S DONE Q4H THIS SHIFT. PT COOPERATIVE WITH CARE. NO VISITORS IN. PT TELE RUNNING SINUS 83. PT IN BED, YELLOW GOWN ON, BED IN LOW POSITION, ALARMS ON, CALL LIGHT IN REACH. THIS RN WILL CONTINUE TO MONITOR.
--- NOTE | 2020-05-13 05:10 | NUR ---
PRECISION FILER HAND SUMMARY PT A&OX4, ABLE TO MAKE NEEDS KNOWN, PLEASANT AND COOPERATIVE TO CARE. NO C/O PAIN OR DISCOMFORT THIS SHIFT. CONT ON CIWA MONITORING, CIWA SCORES 0-1 T/O SHIFT. ON BEDREST, USES A URINAL WITH ASSISTANCE FROM STAFF. PT CALM AND REST IN BED T/O SHIFT. NO C/O CP, SOB, OR N&V. FALL PRECAUTIONS IN PLACE. BED ALARM ON, BED AT LOWEST POSITION, CALL LIGHT WITHIN REACH.
--- NOTE | 2020-05-13 14:28 | NUR ---
PER PATIENT HAD CT ON 05/11 AND WAS NEGATIVE. THIS RN UNABLE TO SEE RESULTS. PATIENT SEEMS TO NOT HAVE JERKING MOVEMENTS WITH LEGS OR ARMS WHEN RN IN ROOM, BUT UNABLE TO HOLD STILL WHILE IN MRI. MRI WAS ATTEMPTED MULTIPLE TIMES PRIOR TO ADMIT. P.T. WAS IN TO EVAL. COBURN P.T. IN NOW TO ASSIST PATIENT WITH W/C MANAGEMENT. PATIENT CIWA HAS BEEN 0-4 FROM TIME OF ADMIT TILL NOW. PATIENT COOPERATIVE. USES URINAL IN BED. UNLABORED RESPIRATIONS ON R.A. REPORT TO JENNI FLETCHER
--- NOTE | 2020-05-13 14:59 | NUR ---
Met pt. in bed and his therapist in the room attending to his needs , encouraged pt. and prayed for him.
--- NOTE | 2020-05-13 15:00 | NUR ---
ASSUMED CARE OF PT AFTER RECEIVING REPORT FROM BRADLY FLETCHER. PT IN THE MIDDLE OF P.T. ASSISTED BACK TO BED AFTER TRANSFERRED TO W/C. UNABLE TO STAND ON HIS OWN. A/OX4.
--- NOTE | 2020-05-13 19:18 | NUR ---
SHIFT SUMMARY PT MEDICATED FOR ANOTHER MRI. ENCOURAGED PT TO TRY AND STAY STILL DURING PROCEDURE. RETURNED AFTER PROCEDURE AND REPORTED BEING ABLE TO COMPLETE MRI. HAS HAD NO FURTHER CHANGED SINCE REPORT FROM BRADLY. WITH REPORT TO ONCOMING SHIFT.
--- NOTE | 2020-05-14 05:18 | NUR ---
SHIFT SUMMARY ASSUMED CARE OF PT AT 1900. PT IS A/OX3, DENIES N/T IN EXTREMITES. HEART SOUNDS REGULAR, LUNG SOUNDS HAVE A RUB, DENIES SOB. PT USES URINAL IN BED. PT LEGS ARE STIFF AND DIFFICUULT TO PERFORM ROM. PT STATES THAT HE IS SLEEPY FROM HIS MRI AND HAS SLEPT MOST OF THE NIGHT. CALL LIGHT IN REACH, BED IN LOWEST POSITION.
--- NOTE | 2020-05-14 13:19 | NUR ---
Pt. is in a chair waiting for discharge he reports doing fine wished pt all the best while at home , offered prayers .
[2020-05-14] MEDS ORDERED: GABA100 PO (14:50)
--- NOTE | 2020-05-14 18:12 | NUR ---
SHIFT SUMMARY PT HAD P.T. THIS MORNING. A SLIDE BOARD WAS USED WITH GOOD EFFECT. PT HAS BEEN ABLE TO USED SLIDE BOARD SEVERAL TIMES SINCE THIS MORNING AND PREFECTING TECHNIQUE. SPOKE WITH CARE MANAGEMENT ABOUT GETTING A W/C WITH ARMS THAT MOVE AND A SLIDE BOARD. HAS HAD NO PAIN TODAY BUT IS UNABLE TO FEEL HIS LEGS HE REPORTS, WHILE PINCHING THEM. ALSO HAD AN EXTRA LARGE BM TODAY WHICH PT REPORTED HE STILL FELT LIKE HE NEEDED TO HAVE A BM AFTER HAVING SUCH A LARGE ONE. SAID HE DIDN'T FEEL WHETHER IT CAME OUT OR NOT. DISCHARGE DELAYED TIL W/C CAN BE OBTAINED.
--- NOTE | 2020-05-14 19:00 | NUR ---
ASSUMED CARE RECEIVED REPORT FROM JUSTINE MOSES. ASSUMED CARE OF PT. RESTING COMFORTABLY AT THIS TIME, NO S/S ACUTE DISTRESS NOTED, RESPS EVEN AND UNLABORED. CALM AND COOPERATIVE WITH STAFF AT THIS TIME. CALL LIGHT, POSSESSIONS IN REACH, BED IN LOW POSITION WITH ALARMS ON. WILL CONTINUE TO MONITOR.
--- NOTE | 2020-05-14 21:00 | NUR ---
THIS RN IN [facility], PT YELLING OUT AT STAFF, USING COLORFUL LANGUAGE, STATING HE HASN'T GOTTEN HIS MEDICATIONS AND WANTS THEM NOW. THIS RN EXPLAINING TO PT THAT STAFF WILL BRING HIM HIS MEDICATIONS SOON THEY ARE ABLE, PT CONTINUING TO YELL, HITTING SIDERAILS. ENVIRONMENT FREE FROM HARMFUL OBJECTS. CALL LIGHT, POSSESSIONS IN REACH, BED IN LOW POSITION. WILL CONTINUE TO MONITOR.
--- NOTE | 2020-05-14 21:05 | NUR ---
THIS RN ADMINISTERING MEDICATIONS, WATCHER [employer] AND 2ND RN IN ROOM. PT CONTINUING TO SHOUT AT THIS RN, USING COLORFUL LANGUAGE, STATING "I WAS SUPPOSED TO HAVE MY MEDICATIONS AT 8 O'CLOCK! I EVEN TOLD MY FAMILY THAT THE NURSE HADN'T BROUGHT THEM IN YET." PT VISIBLY AGITATED, STATING HE WAS ANGRY THAT HE HAD TO WAIT FOR SO LONG. VALIDATED PT'S FRUSTRATIONS, USED THERAPEUTIC COMMUNICATION TO REASSURE PT. PT BECAME VERY APOLOGETIC TOWARDS STAFF, LESS AGITATED. ENVIRONMENT REMAINS FREE FROM HARMFUL OBJECTS. PT DENIES NEEDS AT THIS TIME. CALL LIGHT, POSSESSIONS IN REACH, BED IN LOW POSITION WITH ALARMS ON. WILL CONTINUE TO MONITOR PT AND BEHAVIOR T/O NIGHT.
--- NOTE | 2020-05-15 04:15 | NUR ---
SHIFT SUMMARY PT ASLEEP AT THIS TIME, NO FURTHER BEHAVIORAL EPISODES NOTED T/O NIGHT, SLEPT T/O. PT CALM AND COOPERATIVE WITH STAFF. NO ACUTE CHANGES IN CONDITION. VS REVIEWED. PLAN IS TO D/C WITH NEW W/C TODAY. PT DENIES NEEDS AT THIS TIME. CALL LIGHT, POSSESSIONS IN REACH, BED IN LOW POSITION WITH ALARMS ON. WILL CONTINUE TO MONITOR AND PROVIDE CARE NEEDED UNTIL DAY RN ASSUMES CARE.
--- NOTE | 2020-05-15 18:24 | NUR ---
SHIFT SUMMARY W/C ARRIVED AT 1830. ARRANGEMENTS MADE FOR PT TO [facility] WILL CALL IN A.M. AND HAVE PLACE CHANGED TO THE HOSPITAL. PT HAS BEEN COOPERATIVE THROUGH DAY. HAS BEEN USING SLIDE BOARD FROM BED TO W/C SEVERAL TIMES TODAY AND PERFORMING TASK WELL. REINFORCED WITH PT IMPORTANCE OF MOVING HIS BUTTOCKS WHILE IN CHAIR FREQUENTLY TO PREVENT SKIN BREAKDOWN AND TO MONITER SKIN FOR DEVELOPMENT OF WOUNDS. WENT TO BATHROOM TODAY AND WAS ABLE TO TRANSFER FROM W/C TO TOILET WITH NO HELP AND MINIMAL CUES/PROMPTING. SHOWER TAKEN WITH 2 STAFF ASSISTING PT TO SHOWER CHAIR USING SLIDE BOARD AND BABY POWDER. MD AWARE OF PT LEAVING TOMORROW AT 0845.
--- NOTE | 2020-05-15 19:05 | NUR ---
ASSUMED CARE RECEIVED REPORT FROM JUSTINE MOSES. ASSUMED CARE OF PT. PT RESTING IN BED COMFORTABLY AT THIS TIME, NO S/S ACUTE DISTRESS NOTED, RESPS EVEN AND UNLABORED. DENIES NEEDS AT THIS TIME. CALL LIGHT, POSSESSIONS IN REACH, BED IN LOW POSITION. W/C AND SLIDER BOARD IN REACH. WILL CONTINUE TO MONITOR AND ASSESS PT NEEDS T/O NIGHT.
--- NOTE | 2020-05-16 00:32 | NUR ---
SPOKE TO DR. THOMAS REGARDING PT'S LACK OF IV. ORDERS RECEIVED. CONTINUE TO MONITOR.
--- NOTE | 2020-05-16 06:56 | NUR ---
SHIFT SUMMARY PT ASLEEP AT THIS TIME, NO S/S ACUTE DISTRESS NOTED, NO ACUTE CHANGES IN CONDITION. SLEPT T/O NIGHT. PLEASANT AND COOPERATIVE WITH STAFF. PLAN IS TO D/C TODAY AROUND 0845, PENDING TRANSPORTATION. VS REVIEWED. PT DENIES NEEDS. CALL LIGHT, POSSESSIONS IN REACH, WILL MONITOR UNTIL REPORT GIVEN TO ONCOMING RN.
--- NOTE | 2020-05-16 08:08 | NUR ---
SPEAKING WITH THE BROKERAGE ABOUT THE PATIENT GETTING TO HIS APPOINTMENT AT 0845. THE BROKERAGE HAD TO CHANGE HIS APPOINTMENT DUE TO HIS PRESCHEDULED RIDE AVAILABLE. HE IS GOING TO BE PICKED UP. ALL DISCHARGE PAPERS GONE OVER WITH THE PATIENT. HE WILL BE LEAVING FOR HIS FOLLOW UP SOON IZA HERMOSILLO PICKS HIM UP. NO IV ACCESS AT TIME OF ONCOMING SHIFT. PATIENT STATES EVERYONE HAS DONE WELL.
--- NOTE | 2020-05-16 08:23 | NUR ---
PT DISCHARGING BY [employer] WITH OWN WHEELCHAIR. PLAN FOR [employer] AT 0845 TO OFFICE. THEN TO [facility].
== END 2020-05-16 08:36 | disposition home or self-care (01) ==
LOC: ER 12:07 → MEDS 12:08 → ENPENDDIS 05-14 15:54 → MEDS 05-16 08:36
PROVIDERS: Pharmacist; Physician Assistant; ADMIT Internal Medicine
DX: R53.1 Weakness (principal); R29.6 Repeated falls; F10.20 Alcohol dependence, uncomplicated; G40.909 Epilepsy, unspecified, not intractable, without status epilepticus; F31.9 Bipolar disorder, unspecified; F17.200 Nicotine dependence, unspecified, uncomplicated; F15.10 Other stimulant abuse, uncomplicated; G06.2 Extradural and subdural abscess, unspecified; F20.9 Schizophrenia, unspecified; R45.1 Restlessness and agitation; Z98.1 Arthrodesis status; Z88.1 Allergy status to other antibiotic agents; Z88.2 Allergy status to sulfonamides; Z88.6 Allergy status to analgesic agent; Z79.899 Other long term (current) drug therapy; Z20.828 Contact with and (suspected) exposure to other viral communicable diseases; Z23 Encounter for immunization; Z51.5 Encounter for palliative care
CPT/HCPCS: 36415; 72156; 72157; 72158; 80048; 80053; 80202; 82607; 82746; 82947; 83605; 85025; 85027; 87040; 96365; 96366; 96367; 96368; 96372; 96375; 96376; 97110; 97163; 97530; 99285-25; A9270; A9579; G0378; J1200; J1630; J1650; J1953; J2060; J3370; J3411; J3475; J7030; J7042; J7050; U0004

== ENCOUNTER 2020-05-17 22:23 | Emergency (ER) | payer OTHER ==
[~2020-05-17] VITALS: Ht 172.7 cm; Wt 72.6 kg
[~2020-05-17 22:23] MED LIST changes: +GABA100 PO
== END 2020-05-18 00:16 | disposition home or self-care (01) ==
LOC: ER 22:23
DX: M50.30 Other cervical disc degeneration, unspecified cervical region (principal); M51.36 Other intervertebral disc degeneration, lumbar region; G89.29 Other chronic pain; F31.81 Bipolar II disorder; F17.200 Nicotine dependence, unspecified, uncomplicated; G40.909 Epilepsy, unspecified, not intractable, without status epilepticus; Z79.899 Other long term (current) drug therapy; Z88.6 Allergy status to analgesic agent; Z88.2 Allergy status to sulfonamides
CPT/HCPCS: 96374; 99283-25; J3360

== ENCOUNTER 2020-05-23 09:33 | Emergency (ER) | payer OTHER ==
[~2020-05-23] VITALS: Ht 175.3 cm; Wt 68.0 kg
[2020-05-23 10:46] LABS: BASOPHILS ABSOLUTE AUTO 0.05 K/mm3 (0.00-0.23); BASOPHILS PERCENT AUTO 1 % (0-2); EOSINOPHILS ABSOLUTE AUTO 0.35 K/mm3 (0.00-0.68); EOSINOPHILS PERCENT AUTO 5 % (0-6); Hematocrit 46.6 % (37.0-53.0); Hemoglobin 15.9 g/dL (13.5-17.5); IMMATURE GRAN ABSOLUTE AUTO 0.01 K/mm3 (0.00-0.10); IMMATURE GRAN PERCENT AUTO 0 % (0-1); LYMPHOCYTES ABSOLUTE AUTO 1.43 K/mm3 (0.84-5.20); LYMPHOCYTES PERCENT AUTO 19 % (21-46); MONOCYTES ABSOLUTE AUTO 0.55 K/mm3 (0.16-1.47); MONOCYTES PERCENT AUTO 7 % (4-13); Mean Corpuscular HGB 29.4 pg (26.0-34.0); Mean Corpuscular HGB Conc 34.1 g/dL (31.5-36.5); Mean Corpuscular Volume 86 fL (80-100); Mean Platelet Volume 10.6 fL (9.1-12.4); NEUTROPHILS ABSOLUTE AUTO 5.35 K/mm3 (1.96-9.15); NEUTROPHILS PERCENT AUTO 69 % (41-73); Platelet Count 209 K/mm3 (150-400); RDW Coefficient Variation 12.5 % (11.7-14.2); RDW Standard Deviation 39.4 fL (35.1-46.3); Red Blood Cell Count 5.41 M/mm3 (4.30-5.90); White Blood Cell Count 7.74 K/mm3 (4.00-11.30)
[2020-05-23 11:04] LABS: Alanine Aminotransfer (ALT/SGP 21 U/L (12-78); Albumin, Blood 3.4 g/dL (3.4-5.0); Albumin/Globulin Ratio 1.1 (0.8-1.8); Alk Phos 88 U/L (50-136); Anion Gap 4 mmol/L (6-16); Aspartate Aminotrans (AST/SGOT 15 U/L (12-37); Bilirubin, Total 0.3 mg/dL (0.1-1.0); Blood Urea Nitrogen 12 mg/dL (8-24); Bun/Creatinine Ratio 18.9 (12.0-20.0); CO2, Blood 31 mmol/L (21-32); Calcium, Blood 8.5 mg/dL (8.5-10.1); Chloride, Blood 106 mmol/L (98-108); Creatinine, Blood 0.64 mg/dL (0.60-1.20); Glomerular Filtration Rate >60 (60-); Glucose, Blood 99 mg/dL (70-99); Potassium, Blood 3.9 mmol/L (3.5-5.5); Sodium, Blood 141 mmol/L (136-145); Total Protein, Blood 6.4 g/dL (6.4-8.2)
[2020-05-23 11:25] LABS: International Normalized Ratio 0.99; Prothrombin Time Results 10.6 Sec (9.7-11.5)
[2020-05-23] MEDS ORDERED: METPRE4DP PO (12:36)
[2020-05-23] MEDS ORDERED: CODACE30 PO (12:36)
== END 2020-05-23 12:45 | disposition home or self-care (01) ==
LOC: ER 09:33
PROVIDERS: Emergency Medicine
DX: M54.5 Low back pain (principal); R53.1 Weakness; F17.210 Nicotine dependence, cigarettes, uncomplicated; G89.29 Other chronic pain; Z88.6 Allergy status to analgesic agent; Z88.2 Allergy status to sulfonamides; Z88.1 Allergy status to other antibiotic agents; Z79.899 Other long term (current) drug therapy; Z20.828 Contact with and (suspected) exposure to other viral communicable diseases
CPT/HCPCS: 36415; 80053; 85025; 85610; 85730; 99284; U0004

== ENCOUNTER 2020-09-01 16:15 | Emergency (ER) | payer OTHER ==
[~2020-09-01] VITALS: Ht 175.3 cm; Wt 79.4 kg
[~2020-09-01 16:15] MED LIST changes: +CODACE30 PO; +METPRE4DP PO
[2020-09-01] MEDS ORDERED: Methocarbamol750 MG PO (16:38)
[2020-09-01 17:03] LABS: BASOPHILS ABSOLUTE AUTO 0.02 K/mm3 (0.00-0.23); BASOPHILS PERCENT AUTO 0 % (0-2); EOSINOPHILS ABSOLUTE AUTO 0.13 K/mm3 (0.00-0.68); EOSINOPHILS PERCENT AUTO 1 % (0-6); Hematocrit 49.5 % (37.0-53.0); Hemoglobin 17.4 g/dL (13.5-17.5); IMMATURE GRAN ABSOLUTE AUTO 0.04 K/mm3 (0.00-0.10); IMMATURE GRAN PERCENT AUTO 0 % (0-1); LYMPHOCYTES ABSOLUTE AUTO 1.16 K/mm3 (0.84-5.20); LYMPHOCYTES PERCENT AUTO 12 % (21-46); MONOCYTES ABSOLUTE AUTO 0.65 K/mm3 (0.16-1.47); MONOCYTES PERCENT AUTO 7 % (4-13); Mean Corpuscular HGB 30.6 pg (26.0-34.0); Mean Corpuscular HGB Conc 35.2 g/dL (31.5-36.5); Mean Corpuscular Volume 87 fL (80-100); Mean Platelet Volume 10.9 fL (9.1-12.4); NEUTROPHILS PERCENT AUTO 79 % (41-73); Platelet Count 156 K/mm3 (150-400); RDW Coefficient Variation 12.2 % (11.7-14.2); RDW Standard Deviation 39.2 fL (35.1-46.3); Red Blood Cell Count 5.69 M/mm3 (4.30-5.90)
[2020-09-01 17:23] LABS: Alanine Aminotransfer (ALT/SGP 17 U/L (12-78); Albumin, Blood 4.3 g/dL (3.4-5.0); Albumin/Globulin Ratio 1.4 (0.8-1.8); Alk Phos 95 U/L (50-136); Anion Gap 3 mmol/L (6-16); Aspartate Aminotrans (AST/SGOT 16 U/L (12-37); Bilirubin, Total 0.7 mg/dL (0.1-1.0); Blood Urea Nitrogen 11 mg/dL (8-24); Bun/Creatinine Ratio 16.3 (12.0-20.0); CO2, Blood 31 mmol/L (21-32); Calcium, Blood 9.1 mg/dL (8.5-10.1); Chloride, Blood 104 mmol/L (98-108); Creatinine, Blood 0.67 mg/dL (0.60-1.20); Glomerular Filtration Rate >60 (60-); Glucose, Blood 94 mg/dL (70-99); Potassium, Blood 3.6 mmol/L (3.5-5.5); Sodium, Blood 138 mmol/L (136-145); Total Protein, Blood 7.3 g/dL (6.4-8.2)
== END 2020-09-01 19:36 | disposition home or self-care (01) ==
LOC: ER 16:15
PROVIDERS: Emergency Medicine
DX: G40.909 Epilepsy, unspecified, not intractable, without status epilepticus (principal); F17.200 Nicotine dependence, unspecified, uncomplicated; Z88.2 Allergy status to sulfonamides; Z88.6 Allergy status to analgesic agent; Z88.1 Allergy status to other antibiotic agents; Z79.899 Other long term (current) drug therapy
CPT/HCPCS: 36415; 80053; 85025; 96365; 99284-25; J1953

== ENCOUNTER 2020-10-23 18:58 | Emergency (ER) | payer OTHER ==
[~2020-10-23] VITALS: Ht 175.3 cm; Wt 77.1 kg
[~2020-10-23 18:58] MED LIST changes: +Methocarbamol750 MG PO
[2020-10-23 20:35] LABS: BASOPHILS ABSOLUTE AUTO 0.04 K/mm3 (0.00-0.23); BASOPHILS PERCENT AUTO 0 % (0-2); EOSINOPHILS ABSOLUTE AUTO 0.24 K/mm3 (0.00-0.68); EOSINOPHILS PERCENT AUTO 2 % (0-6); Hematocrit 46.4 % (37.0-53.0); Hemoglobin 15.7 g/dL (13.5-17.5); IMMATURE GRAN ABSOLUTE AUTO 0.04 K/mm3 (0.00-0.10); IMMATURE GRAN PERCENT AUTO 0 % (0-1); LYMPHOCYTES ABSOLUTE AUTO 1.38 K/mm3 (0.84-5.20); LYMPHOCYTES PERCENT AUTO 12 % (21-46); MONOCYTES ABSOLUTE AUTO 0.81 K/mm3 (0.16-1.47); MONOCYTES PERCENT AUTO 7 % (4-13); Mean Corpuscular HGB 30.2 pg (26.0-34.0); Mean Corpuscular HGB Conc 33.8 g/dL (31.5-36.5); Mean Corpuscular Volume 89 fL (80-100); NEUTROPHILS ABSOLUTE AUTO 9.52 K/mm3 (1.96-9.15); NEUTROPHILS PERCENT AUTO 79 % (41-73); Platelet Count 161 K/mm3 (150-400); RDW Coefficient Variation 11.7 % (11.7-14.2); RDW Standard Deviation 37.5 fL (35.1-46.3); White Blood Cell Count 12.03 K/mm3 (4.00-11.30)
[2020-10-23 20:51] LABS: Alanine Aminotransfer (ALT/SGP 14 U/L (12-78); Albumin, Blood 3.5 g/dL (3.4-5.0); Albumin/Globulin Ratio 1.2 (0.8-1.8); Alk Phos 80 U/L (50-136); Anion Gap 11 mmol/L (6-16); Aspartate Aminotrans (AST/SGOT 6 U/L (12-37); Bilirubin, Total 0.6 mg/dL (0.1-1.0); Blood Urea Nitrogen 15 mg/dL (8-24); Bun/Creatinine Ratio 20.6 (12.0-20.0); CO2, Blood 23 mmol/L (21-32); Calcium, Blood 7.9 mg/dL (8.5-10.1); Chloride, Blood 109 mmol/L (98-108); Creatinine, Blood 0.73 mg/dL (0.60-1.20); Glomerular Filtration Rate >60 (60-); Glucose, Blood 127 mg/dL (70-99); Potassium, Blood 3.7 mmol/L (3.5-5.5); Sodium, Blood 143 mmol/L (136-145); Total Protein, Blood 6.5 g/dL (6.4-8.2)
[2020-10-23] MEDS ORDERED: KEPPRA250 MG PO (23:33)
== END 2020-10-24 00:08 | disposition home or self-care (01) ==
LOC: ER 18:58
PROVIDERS: Emergency Medicine
DX: R56.9 Unspecified convulsions (principal); Z88.6 Allergy status to analgesic agent; Z88.2 Allergy status to sulfonamides; Z88.1 Allergy status to other antibiotic agents; Z79.899 Other long term (current) drug therapy
CPT/HCPCS: 36415; 70450; 80053; 85025; 96365; 96375; 99284-25; J1953; J2060

== ENCOUNTER 2020-10-25 12:42 | Emergency (ER) | payer OTHER ==
[~2020-10-25] VITALS: Ht 180.3 cm; Wt 83.9 kg
[~2020-10-25 12:42] MED LIST changes: +KEPPRA250 MG PO
== END 2020-10-25 15:10 | disposition home or self-care (01) ==
LOC: ER 12:42
DX: S86.911A Strain of unspecified muscle(s) and tendon(s) at lower leg level, right leg, initial encounter (principal); M70.51 Other bursitis of knee, right knee; Z88.2 Allergy status to sulfonamides; Z88.6 Allergy status to analgesic agent; Z79.899 Other long term (current) drug therapy; W06.XXXA Fall from bed, initial encounter
CPT/HCPCS: 29505; 73590; 99283-25

== ENCOUNTER 2020-10-25 22:55 | Emergency (ER) | payer OTHER ==
[~2020-10-25] VITALS: Ht 177.8 cm; Wt 74.8 kg
== END 2020-10-25 23:41 | disposition home or self-care (01) ==
LOC: ER 22:55
DX: M79.604 Pain in right leg (principal); G89.29 Other chronic pain; Z88.6 Allergy status to analgesic agent; Z88.2 Allergy status to sulfonamides; Z88.1 Allergy status to other antibiotic agents; Z79.899 Other long term (current) drug therapy
CPT/HCPCS: 99283

== ENCOUNTER 2020-11-17 01:35 | Observation (INO) | payer OTHER ==
[~2020-11-17] VITALS: Ht 172.7 cm; Wt 72.6 kg
[2020-11-17 02:10] LABS: Source, Urine Catheter
[2020-11-17 02:22] LABS: Bilirubin, Urine Neg (Neg); Blood, Urine 5+ (Neg); Glucose Qualitative, Urine Neg (Neg); Ketones, Urine 2+ (Neg); Leukocyte Esterase, Urine 1+ (Neg); Nitrite, Urine Neg (Neg); Protein, Urine 2+ (Neg); Urobilinogen, Urine NORM (Normal)
[2020-11-17 02:27] LABS: Appearance, Urine Hazy (Clear); Color, Urine Yellow (P-Yellow)
[2020-11-17 02:29] LABS: Amorphous Mod (0-Heavy); Bacteria Few /hpf; Red Blood Cells, Urine TNTC /hpf (0-2); Squamous Epithelial Cells Rare /hpf (Few); White Blood Cells, Urine Rare /hpf (0-5)
[2020-11-17 02:31] LABS: BASOPHILS ABSOLUTE AUTO 0.02 K/mm3 (0.00-0.23); BASOPHILS PERCENT AUTO 0 % (0-2); EOSINOPHILS ABSOLUTE AUTO 0.33 K/mm3 (0.00-0.68); EOSINOPHILS PERCENT AUTO 4 % (0-6); Hemoglobin 16.3 g/dL (13.5-17.5); IMMATURE GRAN ABSOLUTE AUTO 0.02 K/mm3 (0.00-0.10); IMMATURE GRAN PERCENT AUTO 0 % (0-1); LYMPHOCYTES ABSOLUTE AUTO 1.26 K/mm3 (0.84-5.20); LYMPHOCYTES PERCENT AUTO 14 % (21-46); MONOCYTES ABSOLUTE AUTO 0.66 K/mm3 (0.16-1.47); MONOCYTES PERCENT AUTO 7 % (4-13); Mean Corpuscular HGB Conc 34.7 g/dL (31.5-36.5); Mean Corpuscular Volume 86 fL (80-100); Mean Platelet Volume 10.9 fL (9.1-12.4); NEUTROPHILS ABSOLUTE AUTO 6.91 K/mm3 (1.96-9.15); NEUTROPHILS PERCENT AUTO 75 % (41-73); Platelet Count 154 K/mm3 (150-400); RDW Coefficient Variation 12.6 % (11.7-14.2); RDW Standard Deviation 39.3 fL (35.1-46.3); Red Blood Cell Count 5.44 M/mm3 (4.30-5.90)
[2020-11-17 02:35] LABS: U Amphetamine Screen DETECTED; U Barbituate Screen Not Detected; U Benzodiazapine Screen Not Detected; U Buprenorphine Screen Not Detected; U Cannabinoids Screen DETECTED; U Cocaine Screen Not Detected; U Methadone Screen Not Detected; U Methamphetamine Screen DETECTED; U Opiates Screen Not Detected; U Oxycodone Screen Not Detected; U Phencyclidine Screen Not Detected; U Propoxyphene Screen Not Detected
[2020-11-17 02:51] LABS: Alanine Aminotransfer (ALT/SGP 19 U/L (12-78); Albumin, Blood 3.7 g/dL (3.4-5.0); Albumin/Globulin Ratio 1.3 (0.8-1.8); Alk Phos 76 U/L (50-136); Anion Gap 8 mmol/L (6-16); Aspartate Aminotrans (AST/SGOT 11 U/L (12-37); Bilirubin, Total 0.4 mg/dL (0.1-1.0); Blood Urea Nitrogen 13 mg/dL (8-24); Bun/Creatinine Ratio 17.9 (12.0-20.0); CO2, Blood 27 mmol/L (21-32); CPK Creatine Kinase 271 U/L (39-308); Calcium, Blood 8.3 mg/dL (8.5-10.1); Chloride, Blood 103 mmol/L (98-108); Creatine Kinase MB 7.2 ng/mL (0.0-3.6); Creatine Kinase MB Index 2.7 (0.0-4.0); Creatinine, Blood 0.73 mg/dL (0.60-1.20); Ethanol (Alcohol), Blood, Med <3 mg/dL; Globulin, Blood 2.9 g/dL (2.2-4.0); Glomerular Filtration Rate >60 (60-); Glucose, Blood 103 mg/dL (70-99); Potassium, Blood 3.7 mmol/L (3.5-5.5); Sodium, Blood 138 mmol/L (136-145); Total Protein, Blood 6.6 g/dL (6.4-8.2)
[2020-11-17] MEDS ORDERED: Keppra750 MG PO (12:19)
== END 2020-11-17 16:30 | disposition home or self-care (01) ==
LOC: ER 01:35 → EOR 01:36
PROVIDERS: Emergency Medicine; ADMIT Emergency Medicine
DX: G40.409 Other generalized epilepsy and epileptic syndromes, not intractable, without status epilepticus (principal); F15.10 Other stimulant abuse, uncomplicated; F31.81 Bipolar II disorder
CPT/HCPCS: 36415; 51702; 70450; 74177; 80053; 81001; 82550; 82553; 83605; 85025; 96365-59; 96372-59; 99285-25; G0378; G0480; J1953; J2060; J3486; J7030; Q9967

== ENCOUNTER 2020-12-04 12:22 | Emergency (ER) | payer OTHER ==
[~2020-12-04] VITALS: Ht 175.3 cm; Wt 79.4 kg
[~2020-12-04 12:22] MED LIST changes: +Keppra750 MG PO
[2020-12-04 14:25] LABS: Calcium, Ionized (POC) 1.24 mmol/L (1.10-1.46); Chloride (POC) 102 mmol/L (98-108); Creatinine (POC) 0.7 mg/dL (0.8-1.3); Glucose (ISTAT POC) 103 mg/dL (70-99); Hemoglobin (POC) 17.3 g/dL (13.5-17.5); Sodium (POC) 141 mmol/L (135-148); Total CO2 (POC) 29 mmol/L (21-32)
[2020-12-04] MEDS ORDERED: GABA100 PO (16:03)
== END 2020-12-04 16:28 | disposition home or self-care (01) ==
LOC: ER 12:22
DX: S80.01XA Contusion of right knee, initial encounter (principal); F17.210 Nicotine dependence, cigarettes, uncomplicated; Z79.899 Other long term (current) drug therapy; Z88.6 Allergy status to analgesic agent; Z88.2 Allergy status to sulfonamides; Z88.4 Allergy status to anesthetic agent; W06.XXXA Fall from bed, initial encounter
CPT/HCPCS: 80047; 85014; 99283

== ENCOUNTER 2020-12-29 05:12 | Emergency (ER) | payer OTHER ==
[~2020-12-29] VITALS: Ht 175.3 cm; Wt 77.1 kg
== END 2020-12-29 07:50 | disposition home or self-care (01) ==
LOC: ER 05:12
DX: R56.9 Unspecified convulsions (principal); Z88.6 Allergy status to analgesic agent; Z88.2 Allergy status to sulfonamides; Z88.1 Allergy status to other antibiotic agents; Z79.899 Other long term (current) drug therapy
CPT/HCPCS: 82947; 99284; A9270

== ENCOUNTER 2021-01-03 15:48 | Emergency (ER) | payer OTHER ==
[~2021-01-03] VITALS: Ht 175.3 cm; Wt 72.1 kg
== END 2021-01-03 17:20 | disposition home or self-care (01) ==
LOC: ER 15:48
DX: G40.909 Epilepsy, unspecified, not intractable, without status epilepticus (principal); F17.210 Nicotine dependence, cigarettes, uncomplicated; Z79.899 Other long term (current) drug therapy; Z88.6 Allergy status to analgesic agent; Z88.2 Allergy status to sulfonamides; Z88.1 Allergy status to other antibiotic agents
CPT/HCPCS: 93005; 93010; 96365; 99284-25; J1953

== ENCOUNTER 2021-02-17 08:05 | Emergency (ER) | payer OTHER ==
[~2021-02-17] VITALS: Ht 175.3 cm; Wt 72.6 kg
[2021-02-17 09:45] LABS: BASOPHILS ABSOLUTE AUTO 0.02 K/mm3 (0.00-0.23); BASOPHILS PERCENT AUTO 0 % (0-2); EOSINOPHILS ABSOLUTE AUTO 0.13 K/mm3 (0.00-0.68); EOSINOPHILS PERCENT AUTO 2 % (0-6); Hematocrit 50.4 % (37.0-53.0); Hemoglobin 17.6 g/dL (13.5-17.5); IMMATURE GRAN ABSOLUTE AUTO 0.02 K/mm3 (0.00-0.10); IMMATURE GRAN PERCENT AUTO 0 % (0-1); LYMPHOCYTES ABSOLUTE AUTO 0.68 K/mm3 (0.84-5.20); LYMPHOCYTES PERCENT AUTO 10 % (21-46); MONOCYTES ABSOLUTE AUTO 0.53 K/mm3 (0.16-1.47); MONOCYTES PERCENT AUTO 8 % (4-13); Mean Corpuscular HGB 30.7 pg (26.0-34.0); Mean Corpuscular HGB Conc 34.9 g/dL (31.5-36.5); Mean Corpuscular Volume 88 fL (80-100); Mean Platelet Volume 11.5 fL (9.1-12.4); NEUTROPHILS ABSOLUTE AUTO 5.13 K/mm3 (1.96-9.15); NEUTROPHILS PERCENT AUTO 79 % (41-73); Platelet Count 154 K/mm3 (150-400); RDW Coefficient Variation 12.2 % (11.7-14.2); RDW Standard Deviation 39.4 fL (35.1-46.3); Red Blood Cell Count 5.73 M/mm3 (4.30-5.90); White Blood Cell Count 6.51 K/mm3 (4.00-11.30)
[2021-02-17 09:58] LABS: Alanine Aminotransfer (ALT/SGP 63 U/L (12-78); Albumin, Blood 4.1 g/dL (3.4-5.0); Albumin/Globulin Ratio 1.2 (0.8-1.8); Alk Phos 90 U/L (50-136); Anion Gap 4 mmol/L (6-16); Aspartate Aminotrans (AST/SGOT 25 U/L (12-37); Bilirubin, Total 0.6 mg/dL (0.1-1.0); Blood Urea Nitrogen 15 mg/dL (8-24); Bun/Creatinine Ratio 18.7 (12.0-20.0); CO2, Blood 31 mmol/L (21-32); Calcium, Blood 8.9 mg/dL (8.5-10.1); Chloride, Blood 106 mmol/L (98-108); Globulin, Blood 3.3 g/dL (2.2-4.0); Glomerular Filtration Rate >60 (60-); Glucose, Blood 79 mg/dL (70-99); Sodium, Blood 141 mmol/L (136-145); Total Protein, Blood 7.4 g/dL (6.4-8.2)
== END 2021-02-17 10:39 | disposition home or self-care (01) ==
LOC: ER 08:05
PROVIDERS: Physician Assistant
DX: R56.9 Unspecified convulsions (principal); F17.210 Nicotine dependence, cigarettes, uncomplicated; Z88.6 Allergy status to analgesic agent; Z88.1 Allergy status to other antibiotic agents; Z79.899 Other long term (current) drug therapy
CPT/HCPCS: 80053; 80177; 85025; 99284; A9270

== ENCOUNTER 2021-02-24 08:03 | Emergency (ER) | payer OTHER ==
[~2021-02-24] VITALS: Ht 172.7 cm; Wt 63.5 kg
[2021-02-24] MEDS ORDERED: LEVE500 PO (13:39)
== END 2021-02-24 09:31 | disposition home or self-care (01) ==
LOC: ER 08:03
DX: G40.909 Epilepsy, unspecified, not intractable, without status epilepticus (principal); S01.112A Laceration without foreign body of left eyelid and periocular area, initial encounter; F17.210 Nicotine dependence, cigarettes, uncomplicated; Z88.6 Allergy status to analgesic agent; Z88.2 Allergy status to sulfonamides; Z88.1 Allergy status to other antibiotic agents; X58.XXXA Exposure to other specified factors, initial encounter
CPT/HCPCS: 12001; 99284; A9270

== ENCOUNTER 2021-03-04 05:18 | Emergency (ER) | payer OTHER ==
[~2021-03-04] VITALS: Ht 175.3 cm; Wt 68.0 kg
[2021-03-04 05:55] LABS: Chloride (POC) 104 mmol/L (98-108); Creatinine (POC) 0.7 mg/dL (0.8-1.3); Glucose (ISTAT POC) 102 mg/dL (70-99); Potassium (POC) 6.9 mmol/L (3.5-5.5); Sodium (POC) 135 mmol/L (135-148); Total CO2 (POC) 27 mmol/L (21-32)
[2021-03-04 06:39] LABS: Alanine Aminotransfer (ALT/SGP 19 U/L (12-78); Albumin, Blood 3.4 g/dL (3.4-5.0); Alk Phos 71 U/L (50-136); Anion Gap 4 mmol/L (6-16); Aspartate Aminotrans (AST/SGOT 12 U/L (12-37); Bilirubin, Total 0.4 mg/dL (0.1-1.0); Blood Urea Nitrogen 12 mg/dL (8-24); Bun/Creatinine Ratio 17.6 (12.0-20.0); CO2, Blood 27 mmol/L (21-32); Calcium, Blood 7.9 mg/dL (8.5-10.1); Chloride, Blood 108 mmol/L (98-108); Creatinine, Blood 0.68 mg/dL (0.60-1.20); Globulin, Blood 3.3 g/dL (2.2-4.0); Glomerular Filtration Rate >60 (60-); Glucose, Blood 103 mg/dL (70-99); Sodium, Blood 139 mmol/L (136-145); Total Protein, Blood 6.7 g/dL (6.4-8.2)
== END 2021-03-04 08:34 | disposition home or self-care (01) ==
LOC: ER 05:18
PROVIDERS: Emergency Medicine
DX: E83.51 Hypocalcemia (principal); R56.9 Unspecified convulsions; Z79.899 Other long term (current) drug therapy
CPT/HCPCS: 36415; 80047; 80053; 85014; 93005; 93010; 96365; 99283-25; A9270; J0610; J7030

== ENCOUNTER 2021-03-17 13:54 | Emergency (ER) | payer SELFPAY ==
[~2021-03-17] VITALS: Ht 180.3 cm; Wt 72.6 kg
== END 2021-03-17 16:09 | disposition left against medical advice (07) ==
LOC: ER 13:54
DX: G40.909 Epilepsy, unspecified, not intractable, without status epilepticus (principal); Z53.21 Procedure and treatment not carried out due to patient leaving prior to being seen by health care provider; Z79.899 Other long term (current) drug therapy
CPT/HCPCS: 99283; A9270

== ENCOUNTER 2021-05-01 00:28 | Emergency (ER) | payer OTHER ==
[~2021-05-01] VITALS: Ht 172.7 cm; Wt 77.1 kg
[2021-05-01 02:20] LABS: Calcium, Ionized (POC) 1.12 mmol/L (1.10-1.46); Chloride (POC) 102 mmol/L (98-108); Creatinine (POC) 0.7 mg/dL (0.8-1.3); Glucose (ISTAT POC) 103 mg/dL (70-99); Sodium (POC) 139 mmol/L (135-148); Total CO2 (POC) 26 mmol/L (21-32)
[2021-05-01] MEDS ORDERED: Keppra750 MG PO (02:42)
== END 2021-05-01 03:46 | disposition home or self-care (01) ==
LOC: ER 00:28
PROVIDERS: Student in an Organized Health Care Education/Training Program
DX: G40.909 Epilepsy, unspecified, not intractable, without status epilepticus (principal); F17.210 Nicotine dependence, cigarettes, uncomplicated; Z88.6 Allergy status to analgesic agent; Z88.2 Allergy status to sulfonamides; Z88.8 Allergy status to other drugs, medicaments and biological substances; Z79.899 Other long term (current) drug therapy
CPT/HCPCS: 80047; 84146; 85014; 96365; 99284-25; J1953

== ENCOUNTER 2021-05-10 23:56 | Emergency (ER) | payer OTHER ==
[~2021-05-10] VITALS: Ht 175.3 cm; Wt 68.0 kg
[2021-05-11] MEDS ORDERED: LEVE500 PO (00:09)
[2021-05-11 01:12] LABS: BASOPHILS ABSOLUTE AUTO 0.02 K/mm3 (0.00-0.23); BASOPHILS PERCENT AUTO 0 % (0-2); EOSINOPHILS ABSOLUTE AUTO 0.03 K/mm3 (0.00-0.68); EOSINOPHILS PERCENT AUTO 1 % (0-6); Hematocrit 49.6 % (37.0-53.0); Hemoglobin 17.8 g/dL (13.5-17.5); IMMATURE GRAN ABSOLUTE AUTO 0.03 K/mm3 (0.00-0.10); IMMATURE GRAN PERCENT AUTO 1 % (0-1); LYMPHOCYTES ABSOLUTE AUTO 1.15 K/mm3 (0.84-5.20); LYMPHOCYTES PERCENT AUTO 23 % (21-46); MONOCYTES ABSOLUTE AUTO 0.41 K/mm3 (0.16-1.47); MONOCYTES PERCENT AUTO 8 % (4-13); Mean Corpuscular HGB 31.1 pg (26.0-34.0); Mean Corpuscular HGB Conc 35.9 g/dL (31.5-36.5); Mean Corpuscular Volume 87 fL (80-100); NEUTROPHILS PERCENT AUTO 68 % (41-73); RDW Coefficient Variation 12.8 % (11.7-14.2); RDW Standard Deviation 40.6 fL (35.1-46.3); Red Blood Cell Count 5.72 M/mm3 (4.30-5.90); White Blood Cell Count 5.04 K/mm3 (4.00-11.30)
[2021-05-11 01:14] LABS: Anion Gap 5 mmol/L (6-16); Blood Urea Nitrogen 8 mg/dL (8-24); CO2, Blood 26 mmol/L (21-32); Calcium, Blood 8.5 mg/dL (8.5-10.1); Chloride, Blood 108 mmol/L (98-108); Creatinine, Blood 0.57 mg/dL (0.60-1.20); Glomerular Filtration Rate >60 (60-); Glucose, Blood 109 mg/dL (70-99); Potassium, Blood 3.7 mmol/L (3.5-5.5); Sodium, Blood 139 mmol/L (136-145)
[2021-05-11 01:50] LABS: Source, Urine Catheter
[2021-05-11 01:55] LABS: Blood, Urine Neg (Neg); Glucose Qualitative, Urine Neg (Neg); Ketones, Urine 2+ (Neg); Leukocyte Esterase, Urine 1+ (Neg); Nitrite, Urine Neg (Neg); Protein, Urine 2+ (Neg); Specific Gravity, Urine 1.025 (1.003-1.022); Urobilinogen, Urine 2+ (Normal)
[2021-05-11 02:03] LABS: Appearance, Urine Clear (Clear); Bilirubin, Urine 1+ (Neg); Color, Urine Yellow (P-Yellow)
[2021-05-11 02:04] LABS: Amorphous Light (0-Heavy); Bacteria Few /hpf; Mucus Light (0-Heavy); Red Blood Cells, Urine Not Seen /hpf (0-2); Squamous Epithelial Cells Rare /hpf (Few); White Blood Cells, Urine 0-2 /hpf (0-5)
[2021-05-11] MEDS ORDERED: CYCL10 PO (05:42)
== END 2021-05-11 02:55 | disposition home or self-care (01) ==
LOC: ER 23:56
PROVIDERS: Student in an Organized Health Care Education/Training Program
DX: R33.9 Retention of urine, unspecified (principal); R25.2 Cramp and spasm; Z88.6 Allergy status to analgesic agent; Z88.2 Allergy status to sulfonamides; Z88.8 Allergy status to other drugs, medicaments and biological substances; G40.909 Epilepsy, unspecified, not intractable, without status epilepticus; Z79.899 Other long term (current) drug therapy; F17.210 Nicotine dependence, cigarettes, uncomplicated
CPT/HCPCS: 36415; 51702; 80048; 81001; 85025; 99284-25

== ENCOUNTER 2021-05-11 03:47 | Emergency (ER) | payer OTHER ==
[~2021-05-11] VITALS: Ht 175.3 cm; Wt 68.0 kg
[2021-05-11] MEDS ORDERED: CYCL10 PO (05:42)
== END 2021-05-11 06:09 | disposition home or self-care (01) ==
LOC: ER 03:47
DX: T83.098A Other mechanical complication of other urinary catheter, initial encounter (principal); G40.909 Epilepsy, unspecified, not intractable, without status epilepticus; F17.210 Nicotine dependence, cigarettes, uncomplicated; Z88.2 Allergy status to sulfonamides; Z88.6 Allergy status to analgesic agent; Z88.8 Allergy status to other drugs, medicaments and biological substances; Z79.899 Other long term (current) drug therapy
CPT/HCPCS: 99283; A9270

== ENCOUNTER 2021-05-13 17:17 | Emergency (ER) | payer OTHER ==
[~2021-05-13] VITALS: Ht 172.7 cm; Wt 77.1 kg
== END 2021-05-13 18:01 | disposition home or self-care (01) ==
LOC: ER 17:17
DX: S01.01XA Laceration without foreign body of scalp, initial encounter (principal); G40.909 Epilepsy, unspecified, not intractable, without status epilepticus; Z88.2 Allergy status to sulfonamides; Z79.899 Other long term (current) drug therapy; W19.XXXA Unspecified fall, initial encounter
CPT/HCPCS: 12001; 99283-25

== ENCOUNTER 2021-05-18 09:27 | Emergency (ER) | payer OTHER ==
[~2021-05-18] VITALS: Ht 172.7 cm; Wt 68.0 kg
== END 2021-05-18 10:26 | disposition home or self-care (01) ==
LOC: ER 09:27
DX: S01.01XD Laceration without foreign body of scalp, subsequent encounter (principal); Z88.6 Allergy status to analgesic agent; Z88.2 Allergy status to sulfonamides; Z88.1 Allergy status to other antibiotic agents; Z79.899 Other long term (current) drug therapy; F17.210 Nicotine dependence, cigarettes, uncomplicated

== ENCOUNTER 2021-06-06 19:06 | Emergency (ER) | payer OTHER ==
[~2021-06-06] VITALS: Ht 175.3 cm; Wt 72.6 kg
== END 2021-06-06 20:09 | disposition home or self-care (01) ==
LOC: ER 19:06
DX: S51.812A Laceration without foreign body of left forearm, initial encounter (principal); W26.0XXA Contact with knife, initial encounter; Z88.6 Allergy status to analgesic agent; Z88.2 Allergy status to sulfonamides; Z88.1 Allergy status to other antibiotic agents; Z79.899 Other long term (current) drug therapy; G40.909 Epilepsy, unspecified, not intractable, without status epilepticus; F17.210 Nicotine dependence, cigarettes, uncomplicated
CPT/HCPCS: 99283

== ENCOUNTER 2021-06-13 18:00 | Emergency (ER) | payer OTHER ==
[~2021-06-13] VITALS: Ht 167.6 cm; Wt 72.6 kg
== END 2021-06-13 19:58 | disposition home or self-care (01) ==
LOC: ER 18:00
DX: G40.909 Epilepsy, unspecified, not intractable, without status epilepticus (principal); F10.10 Alcohol abuse, uncomplicated; F17.210 Nicotine dependence, cigarettes, uncomplicated; Z88.2 Allergy status to sulfonamides; Z88.6 Allergy status to analgesic agent; Z88.8 Allergy status to other drugs, medicaments and biological substances; Z79.899 Other long term (current) drug therapy
CPT/HCPCS: 93005; 93010; 99284-25

== ENCOUNTER 2021-06-16 11:39 | Emergency (ER) | payer OTHER ==
[~2021-06-16] VITALS: Ht 175.3 cm; Wt 72.6 kg
[2021-06-16] MEDS ORDERED: LAMO100 PO (13:20)
== END 2021-06-16 13:43 | disposition home or self-care (01) ==
LOC: ER 11:39
DX: G40.909 Epilepsy, unspecified, not intractable, without status epilepticus (principal); F17.210 Nicotine dependence, cigarettes, uncomplicated; Z88.6 Allergy status to analgesic agent; Z88.8 Allergy status to other drugs, medicaments and biological substances; Z88.2 Allergy status to sulfonamides; Z79.899 Other long term (current) drug therapy
CPT/HCPCS: 99284-25; A9270

== ENCOUNTER 2021-06-22 22:34 | Emergency (ER) | payer OTHER ==
[~2021-06-22] VITALS: Ht 175.3 cm; Wt 68.0 kg
== END 2021-06-23 06:31 | disposition home or self-care (01) ==
LOC: ER 22:34
DX: M62.838 Other muscle spasm (principal); F15.129 Other stimulant abuse with intoxication, unspecified; F17.210 Nicotine dependence, cigarettes, uncomplicated; Z88.2 Allergy status to sulfonamides
CPT/HCPCS: 99284; A9270

== ENCOUNTER 2021-08-14 09:22 | Emergency (ER) | payer OTHER ==
[~2021-08-14] VITALS: Ht 175.3 cm; Wt 68.0 kg
[2021-08-14 10:20] LABS: BASOPHILS ABSOLUTE AUTO 0.03 K/mm3 (0.00-0.23); BASOPHILS PERCENT AUTO 0 % (0-2); EOSINOPHILS ABSOLUTE AUTO 0.43 K/mm3 (0.00-0.68); EOSINOPHILS PERCENT AUTO 6 % (0-6); Hematocrit 49.1 % (37.0-53.0); Hemoglobin 17.6 g/dL (13.5-17.5); IMMATURE GRAN ABSOLUTE AUTO 0.03 K/mm3 (0.00-0.10); IMMATURE GRAN PERCENT AUTO 0 % (0-1); LYMPHOCYTES PERCENT AUTO 17 % (21-46); MONOCYTES ABSOLUTE AUTO 0.46 K/mm3 (0.16-1.47); MONOCYTES PERCENT AUTO 6 % (4-13); Mean Corpuscular HGB 31.8 pg (26.0-34.0); Mean Corpuscular HGB Conc 35.8 g/dL (31.5-36.5); Mean Corpuscular Volume 89 fL (80-100); Mean Platelet Volume 10.7 fL (9.1-12.4); NEUTROPHILS ABSOLUTE AUTO 5.49 K/mm3 (1.96-9.15); NEUTROPHILS PERCENT AUTO 71 % (41-73); Platelet Count 193 K/mm3 (150-400); RDW Coefficient Variation 11.9 % (11.7-14.2); RDW Standard Deviation 38.4 fL (35.1-46.3); Red Blood Cell Count 5.54 M/mm3 (4.30-5.90); White Blood Cell Count 7.74 K/mm3 (4.00-11.30)
[2021-08-14 11:00] LABS: Alanine Aminotransfer (ALT/SGP 15 U/L (12-78); Albumin, Blood 3.9 g/dL (3.4-5.0); Albumin/Globulin Ratio 1.4 (0.8-1.8); Alk Phos 73 U/L (50-136); Anion Gap 4 mmol/L (6-16); Aspartate Aminotrans (AST/SGOT 10 U/L (12-37); Bilirubin, Total 0.7 mg/dL (0.1-1.0); Blood Urea Nitrogen 13 mg/dL (8-24); Bun/Creatinine Ratio 19.3 (12.0-20.0); CO2, Blood 28 mmol/L (21-32); Calcium, Blood 8.7 mg/dL (8.5-10.1); Chloride, Blood 106 mmol/L (98-108); Creatinine, Blood 0.67 mg/dL (0.60-1.20); Globulin, Blood 2.7 g/dL (2.2-4.0); Glomerular Filtration Rate >60 (60-); Glucose, Blood 139 mg/dL (70-99); Potassium, Blood 4.2 mmol/L (3.5-5.5); Sodium, Blood 138 mmol/L (136-145); Total Protein, Blood 6.6 g/dL (6.4-8.2)
[2021-08-14] MEDS ORDERED: LEVE500 PO (12:50)
[2021-08-14] MEDS ORDERED: CATAPRES0.1 MG PO (12:50)
[2021-08-14] MEDS ORDERED: ABILIFY5 MG PO (12:51)
[2021-08-14] MEDS ORDERED: ACET500 PO (14:29)
== END 2021-08-14 15:00 | disposition home or self-care (01) ==
LOC: ER 09:22
PROVIDERS: Physician Assistant
DX: M17.12 Unilateral primary osteoarthritis, left knee (principal); F17.210 Nicotine dependence, cigarettes, uncomplicated; G40.909 Epilepsy, unspecified, not intractable, without status epilepticus; Z88.2 Allergy status to sulfonamides; Z79.899 Other long term (current) drug therapy; Z86.14 Personal history of Methicillin resistant Staphylococcus aureus infection; Z88.6 Allergy status to analgesic agent
CPT/HCPCS: 36415; 73560-LT; 80053; 82947; 85025; 85651; 86140; 99284-25; A9270

== ENCOUNTER 2021-08-16 01:31 | Emergency (ER) | payer OTHER ==
[~2021-08-16 01:31] MED LIST changes: +ABILIFY5 MG PO; +ACET500 PO; +CATAPRES0.1 MG PO
== END 2021-08-16 03:43 | disposition left against medical advice (07) ==
LOC: ER 01:31
DX: Z53.21 Procedure and treatment not carried out due to patient leaving prior to being seen by health care provider (principal)

== ENCOUNTER 2021-10-03 00:11 | Emergency (ER) | payer OTHER ==
[~2021-10-03] VITALS: Ht 175.3 cm; Wt 79.4 kg
[2021-10-03 00:50] LABS: BASOPHILS ABSOLUTE AUTO 0.04 K/mm3 (0.00-0.23); BASOPHILS PERCENT AUTO 1 % (0-2); EOSINOPHILS ABSOLUTE AUTO 0.48 K/mm3 (0.00-0.68); EOSINOPHILS PERCENT AUTO 6 % (0-6); Hematocrit 44.3 % (37.0-53.0); Hemoglobin 15.6 g/dL (13.5-17.5); IMMATURE GRAN ABSOLUTE AUTO 0.03 K/mm3 (0.00-0.10); IMMATURE GRAN PERCENT AUTO 0 % (0-1); LYMPHOCYTES ABSOLUTE AUTO 1.77 K/mm3 (0.84-5.20); LYMPHOCYTES PERCENT AUTO 21 % (21-46); MONOCYTES ABSOLUTE AUTO 0.53 K/mm3 (0.16-1.47); MONOCYTES PERCENT AUTO 6 % (4-13); Mean Corpuscular HGB 31.7 pg (26.0-34.0); Mean Corpuscular HGB Conc 35.2 g/dL (31.5-36.5); Mean Corpuscular Volume 90 fL (80-100); Mean Platelet Volume 10.9 fL (9.1-12.4); NEUTROPHILS ABSOLUTE AUTO 5.54 K/mm3 (1.96-9.15); NEUTROPHILS PERCENT AUTO 66 % (41-73); Platelet Count 173 K/mm3 (150-400); RDW Coefficient Variation 11.7 % (11.7-14.2); RDW Standard Deviation 38.5 fL (35.1-46.3); Red Blood Cell Count 4.92 M/mm3 (4.30-5.90); White Blood Cell Count 8.39 K/mm3 (4.00-11.30)
[2021-10-03 01:06] LABS: Anion Gap 5 mmol/L (6-16); Blood Urea Nitrogen 16 mg/dL (8-24); Bun/Creatinine Ratio 23.1 (12.0-20.0); CO2, Blood 29 mmol/L (21-32); Calcium, Blood 8.4 mg/dL (8.5-10.1); Chloride, Blood 107 mmol/L (98-108); Creatinine, Blood 0.69 mg/dL (0.60-1.20); Glomerular Filtration Rate >60 (60-); Glucose, Blood 93 mg/dL (70-99); Potassium, Blood 3.9 mmol/L (3.5-5.5); Sodium, Blood 141 mmol/L (136-145)
[2021-10-03] MEDS ORDERED: LEVE500 PO (01:23)
== END 2021-10-03 01:47 | disposition home or self-care (01) ==
LOC: ER 00:11
PROVIDERS: Student in an Organized Health Care Education/Training Program
DX: R56.9 Unspecified convulsions (principal); Z91.14 Patient's other noncompliance with medication regimen; F17.210 Nicotine dependence, cigarettes, uncomplicated; Z88.2 Allergy status to sulfonamides; Z88.6 Allergy status to analgesic agent; Z88.8 Allergy status to other drugs, medicaments and biological substances; Z79.899 Other long term (current) drug therapy
CPT/HCPCS: 80048; 85025; 93005; 93010; 96374; 99284-25; J1953

== ENCOUNTER 2021-10-22 18:46 | Emergency (ER) | payer OTHER ==
[~2021-10-22] VITALS: Ht 175.3 cm; Wt 81.7 kg
[2021-10-22 20:02] LABS: BASOPHILS ABSOLUTE AUTO 0.05 K/mm3 (0.00-0.23); BASOPHILS PERCENT AUTO 1 % (0-2); EOSINOPHILS ABSOLUTE AUTO 0.29 K/mm3 (0.00-0.68); EOSINOPHILS PERCENT AUTO 3 % (0-6); Hematocrit 47.7 % (37.0-53.0); Hemoglobin 16.5 g/dL (13.5-17.5); IMMATURE GRAN ABSOLUTE AUTO 0.03 K/mm3 (0.00-0.10); IMMATURE GRAN PERCENT AUTO 0 % (0-1); LYMPHOCYTES ABSOLUTE AUTO 1.08 K/mm3 (0.84-5.20); LYMPHOCYTES PERCENT AUTO 10 % (21-46); MONOCYTES ABSOLUTE AUTO 0.55 K/mm3 (0.16-1.47); MONOCYTES PERCENT AUTO 5 % (4-13); Mean Corpuscular HGB 31.5 pg (26.0-34.0); Mean Corpuscular HGB Conc 34.6 g/dL (31.5-36.5); Mean Corpuscular Volume 91 fL (80-100); Mean Platelet Volume 11.5 fL (9.1-12.4); NEUTROPHILS ABSOLUTE AUTO 9.06 K/mm3 (1.96-9.15); NEUTROPHILS PERCENT AUTO 82 % (41-73); Platelet Count 178 K/mm3 (150-400); RDW Coefficient Variation 11.9 % (11.7-14.2); Red Blood Cell Count 5.24 M/mm3 (4.30-5.90); White Blood Cell Count 11.06 K/mm3 (4.00-11.30)
[2021-10-22 20:18] LABS: Alanine Aminotransfer (ALT/SGP 24 U/L (12-78); Albumin, Blood 3.9 g/dL (3.4-5.0); Albumin/Globulin Ratio 1.2 (0.8-1.8); Alk Phos 82 U/L (50-136); Anion Gap 7 mmol/L (6-16); Aspartate Aminotrans (AST/SGOT 19 U/L (12-37); Bilirubin, Total 0.3 mg/dL (0.1-1.0); Blood Urea Nitrogen 17 mg/dL (8-24); Bun/Creatinine Ratio 25.4 (12.0-20.0); CO2, Blood 27 mmol/L (21-32); Calcium, Blood 8.4 mg/dL (8.5-10.1); Chloride, Blood 105 mmol/L (98-108); Creatinine, Blood 0.67 mg/dL (0.60-1.20); Globulin, Blood 3.2 g/dL (2.2-4.0); Glomerular Filtration Rate >60 (60-); Glucose, Blood 95 mg/dL (70-99); Potassium, Blood 4.5 mmol/L (3.5-5.5); Sodium, Blood 139 mmol/L (136-145); Total Protein, Blood 7.1 g/dL (6.4-8.2)
== END 2021-10-22 22:47 | disposition home or self-care (01) ==
LOC: ER 18:46
PROVIDERS: Emergency Medicine
DX: G40.909 Epilepsy, unspecified, not intractable, without status epilepticus (principal); Z88.2 Allergy status to sulfonamides; Z79.899 Other long term (current) drug therapy; F17.210 Nicotine dependence, cigarettes, uncomplicated
CPT/HCPCS: 80053; 85025; 93005; 93010; 99284-25

== ENCOUNTER 2021-10-25 00:42 | Emergency (ER) | payer OTHER ==
[~2021-10-25] VITALS: Ht 175.3 cm; Wt 72.6 kg
== END 2021-10-25 07:15 | disposition home or self-care (01) ==
LOC: ER 00:42
DX: G40.409 Other generalized epilepsy and epileptic syndromes, not intractable, without status epilepticus (principal); M79.605 Pain in left leg; M79.604 Pain in right leg; J45.909 Unspecified asthma, uncomplicated; F17.210 Nicotine dependence, cigarettes, uncomplicated; Z88.6 Allergy status to analgesic agent; Z88.2 Allergy status to sulfonamides; Z88.8 Allergy status to other drugs, medicaments and biological substances; Z79.899 Other long term (current) drug therapy
CPT/HCPCS: 99283; A9270

== ENCOUNTER 2021-11-28 11:44 | Emergency (ER) | payer OTHER ==
[~2021-11-28] VITALS: Ht 177.8 cm; Wt 79.4 kg
[~2021-11-28 11:44] MED LIST changes: +ONDA4 PO
== END 2021-11-28 12:57 | disposition home or self-care (01) ==
LOC: ER 11:44
DX: G40.909 Epilepsy, unspecified, not intractable, without status epilepticus (principal); J45.909 Unspecified asthma, uncomplicated; F31.9 Bipolar disorder, unspecified; F17.210 Nicotine dependence, cigarettes, uncomplicated; Z88.6 Allergy status to analgesic agent; Z88.2 Allergy status to sulfonamides; Z88.1 Allergy status to other antibiotic agents
CPT/HCPCS: 99284

== ENCOUNTER 2022-01-04 18:19 | Emergency (ER) | payer OTHER ==
[~2022-01-04] VITALS: Ht 175.3 cm; Wt 72.6 kg
[2022-01-04 20:33] LABS: BASOPHILS ABSOLUTE AUTO 0.05 K/mm3 (0.00-0.23); BASOPHILS PERCENT AUTO 1 % (0-2); EOSINOPHILS ABSOLUTE AUTO 0.58 K/mm3 (0.00-0.68); EOSINOPHILS PERCENT AUTO 7 % (0-6); Hematocrit 51.4 % (37.0-53.0); Hemoglobin 18.4 g/dL (13.5-17.5); IMMATURE GRAN ABSOLUTE AUTO 0.02 K/mm3 (0.00-0.10); IMMATURE GRAN PERCENT AUTO 0 % (0-1); LYMPHOCYTES ABSOLUTE AUTO 1.83 K/mm3 (0.84-5.20); LYMPHOCYTES PERCENT AUTO 21 % (21-46); MONOCYTES ABSOLUTE AUTO 0.59 K/mm3 (0.16-1.47); MONOCYTES PERCENT AUTO 7 % (4-13); Mean Corpuscular HGB 31.1 pg (26.0-34.0); Mean Corpuscular HGB Conc 35.8 g/dL (31.5-36.5); Mean Corpuscular Volume 87 fL (80-100); Mean Platelet Volume 10.2 fL (9.1-12.4); NEUTROPHILS ABSOLUTE AUTO 5.73 K/mm3 (1.96-9.15); NEUTROPHILS PERCENT AUTO 65 % (41-73); Platelet Count 176 K/mm3 (150-400); RDW Standard Deviation 38.6 fL (35.1-46.3); Red Blood Cell Count 5.92 M/mm3 (4.30-5.90)
[2022-01-04 20:57] LABS: Salicylate 3.3 mg/dL (2.8-20.0)
[2022-01-04 21:00] LABS: Ethanol (Alcohol), Blood, Med 170 mg/dL
[2022-01-04 21:07] LABS: Acetaminophen, Random <2.0 ug/mL (10.0-30.0); Alanine Aminotransfer (ALT/SGP 23 U/L (12-78); Albumin, Blood 4.2 g/dL (3.4-5.0); Albumin/Globulin Ratio 1.3 (0.8-1.8); Alk Phos 91 U/L (50-136); Anion Gap 11 mmol/L (6-16); Aspartate Aminotrans (AST/SGOT 14 U/L (12-37); Bilirubin, Total 0.2 mg/dL (0.1-1.0); Blood Urea Nitrogen 12 mg/dL (8-24); Bun/Creatinine Ratio 17.8 (12.0-20.0); CO2, Blood 24 mmol/L (21-32); Calcium, Blood 8.8 mg/dL (8.5-10.1); Chloride, Blood 108 mmol/L (98-108); Creatinine, Blood 0.68 mg/dL (0.60-1.20); Globulin, Blood 3.3 g/dL (2.2-4.0); Glomerular Filtration Rate 121 (60-); Glucose, Blood 117 mg/dL (70-99); Potassium, Blood 3.8 mmol/L (3.5-5.5); Sodium, Blood 143 mmol/L (136-145); Total Protein, Blood 7.5 g/dL (6.4-8.2)
== END 2022-01-04 21:15 | disposition home or self-care (01) ==
LOC: ER 18:19
PROVIDERS: Student in an Organized Health Care Education/Training Program
DX: Z04.6 Encounter for general psychiatric examination, requested by authority (principal); F17.210 Nicotine dependence, cigarettes, uncomplicated; Z88.2 Allergy status to sulfonamides; Z88.8 Allergy status to other drugs, medicaments and biological substances; Z79.899 Other long term (current) drug therapy
CPT/HCPCS: 36415; 80053; 85025; G0480

== ENCOUNTER 2022-01-26 08:33 | Emergency (ER) | payer OTHER ==
[~2022-01-26] VITALS: Ht 175.3 cm; Wt 81.7 kg
[2022-01-26] MEDS ORDERED: OLAN2.5 (09:54)
== END 2022-01-26 09:55 | disposition home or self-care (01) ==
LOC: ER 08:33
DX: G40.909 Epilepsy, unspecified, not intractable, without status epilepticus (principal); S80.211A Abrasion, right knee, initial encounter; F32.9 Major depressive disorder, single episode, unspecified; J45.909 Unspecified asthma, uncomplicated; F17.210 Nicotine dependence, cigarettes, uncomplicated; W18.30XA Fall on same level, unspecified, initial encounter; Z79.899 Other long term (current) drug therapy; Z88.6 Allergy status to analgesic agent; Z88.1 Allergy status to other antibiotic agents; Z88.2 Allergy status to sulfonamides
CPT/HCPCS: 99283

== ENCOUNTER 2022-01-28 12:12 | Emergency (ER) | payer OTHER ==
[~2022-01-28] VITALS: Ht 180.3 cm; Wt 79.4 kg
[~2022-01-28 12:12] MED LIST changes: +OLAN2.5
== END 2022-01-28 12:24 | disposition home or self-care (01) ==
LOC: ER 12:12
DX: G40.909 Epilepsy, unspecified, not intractable, without status epilepticus (principal); F17.210 Nicotine dependence, cigarettes, uncomplicated; Z79.899 Other long term (current) drug therapy; Z88.6 Allergy status to analgesic agent; Z88.3 Allergy status to other anti-infective agents; Z88.2 Allergy status to sulfonamides
CPT/HCPCS: 99283

== ENCOUNTER 2022-02-15 13:07 | Emergency (ER) | payer OTHER ==
[~2022-02-15] VITALS: Ht 175.3 cm; Wt 77.1 kg
[2022-02-15] MEDS ORDERED: NEURONTIN300 MG PO (13:57)
[2022-02-15 14:58] LABS: BASOPHILS ABSOLUTE AUTO 0.04 K/mm3 (0.00-0.23); BASOPHILS PERCENT AUTO 0 % (0-2); EOSINOPHILS PERCENT AUTO 1 % (0-6); Hematocrit 47.7 % (37.0-53.0); IMMATURE GRAN ABSOLUTE AUTO 0.03 K/mm3 (0.00-0.10); IMMATURE GRAN PERCENT AUTO 0 % (0-1); LYMPHOCYTES ABSOLUTE AUTO 0.86 K/mm3 (0.84-5.20); LYMPHOCYTES PERCENT AUTO 6 % (21-46); MONOCYTES ABSOLUTE AUTO 0.72 K/mm3 (0.16-1.47); MONOCYTES PERCENT AUTO 5 % (4-13); Mean Corpuscular HGB 31.3 pg (26.0-34.0); Mean Corpuscular HGB Conc 35.6 g/dL (31.5-36.5); Mean Corpuscular Volume 88 fL (80-100); NEUTROPHILS ABSOLUTE AUTO 11.82 K/mm3 (1.96-9.15); NEUTROPHILS PERCENT AUTO 87 % (41-73); Platelet Count 202 K/mm3 (150-400); RDW Coefficient Variation 12.6 % (11.7-14.2); RDW Standard Deviation 40.9 fL (35.1-46.3); Red Blood Cell Count 5.43 M/mm3 (4.30-5.90); White Blood Cell Count 13.57 K/mm3 (4.00-11.30)
[2022-02-15 15:16] LABS: Alanine Aminotransfer (ALT/SGP 19 U/L (12-78); Albumin, Blood 3.6 g/dL (3.4-5.0); Albumin/Globulin Ratio 1.2 (0.8-1.8); Alk Phos 79 U/L (50-136); Anion Gap 6 mmol/L (6-16); Aspartate Aminotrans (AST/SGOT 15 U/L (12-37); Bilirubin, Total 0.4 mg/dL (0.1-1.0); Blood Urea Nitrogen 12 mg/dL (8-24); Bun/Creatinine Ratio 17.4 (12.0-20.0); CO2, Blood 26 mmol/L (21-32); Calcium, Blood 8.2 mg/dL (8.5-10.1); Chloride, Blood 106 mmol/L (98-108); Creatinine, Blood 0.69 mg/dL (0.60-1.20); Ethanol (Alcohol), Blood, Med <3 mg/dL; Glomerular Filtration Rate 121 (60-); Glucose, Blood 99 mg/dL (70-99); Magnesium, Blood 2.1 mg/dL (1.6-2.4); Potassium, Blood 4.4 mmol/L (3.5-5.5); Prolactin 3.6 ng/mL (2.5-17.4); Sodium, Blood 138 mmol/L (136-145); Total Protein, Blood 6.6 g/dL (6.4-8.2)
[2022-02-15 15:40] LABS: Source, Urine Clean Catch
[2022-02-15 15:55] LABS: Appearance, Urine Clear (Clear); Bilirubin, Urine Neg (Neg); Blood, Urine Neg (Neg); Color, Urine Yellow (P-Yellow); Glucose Qualitative, Urine Neg (Neg); Ketones, Urine Neg (Neg); Leukocyte Esterase, Urine 1+ (Neg); Nitrite, Urine Neg (Neg); Protein, Urine Neg (Neg); Urobilinogen, Urine NORM (Normal)
[2022-02-15 16:02] LABS: Bacteria Mod /hpf; Red Blood Cells, Urine 0-2 /hpf (0-2); Squamous Epithelial Cells Rare /hpf (Few)
[2022-02-15] MEDS ORDERED: LEVETIRACETAM1000 M1 PO (16:18)
== END 2022-02-15 16:34 | disposition home or self-care (01) ==
LOC: ER 13:07
PROVIDERS: Student in an Organized Health Care Education/Training Program
DX: G40.909 Epilepsy, unspecified, not intractable, without status epilepticus (principal); J45.909 Unspecified asthma, uncomplicated; F31.9 Bipolar disorder, unspecified; F17.210 Nicotine dependence, cigarettes, uncomplicated; Z88.2 Allergy status to sulfonamides; Z88.6 Allergy status to analgesic agent; Z88.1 Allergy status to other antibiotic agents; Z79.899 Other long term (current) drug therapy
CPT/HCPCS: 36415; 71046; 80053; 81001; 83735; 84146; 85025; G0480; J1953

== ENCOUNTER 2022-03-02 16:57 | Inpatient (IN) | payer OTHER ==
[~2022-03-02] VITALS: Ht 175.3 cm; Wt 76.2 kg
[~2022-03-02 16:57] MED LIST changes: +LEVETIRACETAM1000 M1 PO; +NEURONTIN300 MG PO
[2022-03-02 18:56] LABS: BASOPHILS ABSOLUTE AUTO 0.05 K/mm3 (0.00-0.23); BASOPHILS PERCENT AUTO 0 % (0-2); EOSINOPHILS ABSOLUTE AUTO 0.06 K/mm3 (0.00-0.68); EOSINOPHILS PERCENT AUTO 0 % (0-6); Hematocrit 48.3 % (37.0-53.0); Hemoglobin 17.3 g/dL (13.5-17.5); IMMATURE GRAN ABSOLUTE AUTO 0.11 K/mm3 (0.00-0.10); IMMATURE GRAN PERCENT AUTO 1 % (0-1); LYMPHOCYTES ABSOLUTE AUTO 1.65 K/mm3 (0.84-5.20); LYMPHOCYTES PERCENT AUTO 9 % (21-46); MONOCYTES ABSOLUTE AUTO 1.58 K/mm3 (0.16-1.47); MONOCYTES PERCENT AUTO 9 % (4-13); Mean Corpuscular HGB 31.4 pg (26.0-34.0); Mean Corpuscular HGB Conc 35.8 g/dL (31.5-36.5); Mean Corpuscular Volume 88 fL (80-100); NEUTROPHILS PERCENT AUTO 81 % (41-73); Red Blood Cell Count 5.51 M/mm3 (4.30-5.90); White Blood Cell Count 18.55 K/mm3 (4.00-11.30)
[2022-03-02 19:01] LABS: Albumin, Blood 3.5 g/dL (3.4-5.0); Albumin/Globulin Ratio 0.9 (0.8-1.8); Bilirubin, Total 0.6 mg/dL (0.1-1.0); Bun/Creatinine Ratio 12.9 (12.0-20.0); Calcium, Blood 8.7 mg/dL (8.5-10.1); Creatinine, Blood 0.77 mg/dL (0.60-1.20); Globulin, Blood 3.8 g/dL (2.2-4.0); Potassium, Blood 3.9 mmol/L (3.5-5.5); Total Protein, Blood 7.3 g/dL (6.4-8.2)
[2022-03-02 19:29] LABS: Mean Platelet Volume 10.9 fL (9.1-12.4); Platelet Count 233 K/mm3 (150-400)
[2022-03-02] MEDS ORDERED: [UNRECOGNIZED DRUG - CODE] PO (20:57)
[2022-03-02] MEDS ORDERED: OLANZAPINE1022 PO (20:57)
[2022-03-03 04:40] LABS: BASOPHILS ABSOLUTE AUTO 0.05 K/mm3 (0.00-0.23); BASOPHILS PERCENT AUTO 0 % (0-2); EOSINOPHILS ABSOLUTE AUTO 0.12 K/mm3 (0.00-0.68); EOSINOPHILS PERCENT AUTO 1 % (0-6); Hematocrit 46.7 % (37.0-53.0); Hemoglobin 16.5 g/dL (13.5-17.5); IMMATURE GRAN ABSOLUTE AUTO 0.07 K/mm3 (0.00-0.10); IMMATURE GRAN PERCENT AUTO 1 % (0-1); LYMPHOCYTES ABSOLUTE AUTO 1.51 K/mm3 (0.84-5.20); LYMPHOCYTES PERCENT AUTO 11 % (21-46); MONOCYTES ABSOLUTE AUTO 1.27 K/mm3 (0.16-1.47); MONOCYTES PERCENT AUTO 9 % (4-13); Mean Corpuscular HGB 31.3 pg (26.0-34.0); Mean Corpuscular HGB Conc 35.3 g/dL (31.5-36.5); Mean Corpuscular Volume 89 fL (80-100); Mean Platelet Volume 9.9 fL (9.1-12.4); NEUTROPHILS PERCENT AUTO 78 % (41-73); Platelet Count 211 K/mm3 (150-400); RDW Standard Deviation 39.4 fL (35.1-46.3); Red Blood Cell Count 5.27 M/mm3 (4.30-5.90); White Blood Cell Count 13.62 K/mm3 (4.00-11.30)
[2022-03-03 05:09] LABS: Bun/Creatinine Ratio 9.9 (12.0-20.0); Calcium, Blood 8.1 mg/dL (8.5-10.1); Creatinine, Blood 0.6 mg/dL (0.60-1.20); Potassium, Blood 3.6 mmol/L (3.5-5.5)
--- NOTE | 2022-03-03 06:19 | NUR ---
SHIFT SUMMARY: PT IS ALERT AND ORIENTED. PT IS CALM AND COOPERATIVE WITH CARE. PT CALLS APPROPRIATELY. PT IS INDEPENDENT IN THE ROOM. PT REPORTS PAIN ON SEVERAL OCCASIONS, MEDICATING PER EMAR. PT DENIES NAUSEA, VOMTING, AND SOB. PT SLEPT MUCH OF THE NIGHT WHEN NOT DISTURBED. NO ACUTE CHANGES OR COMPLICATIONS THIS SHIFT. BED IN LOW POSITION, CALL LIGHT WITHIN REACH. WILL REPORT TO DAY NURSE.
--- NOTE | 2022-03-03 17:57 | NUR ---
PT AOX4 AND COOPERATIVE OF CARE. PT'S LEFT ELBOW CELLULITIS HAS WORSENED TODAY. SWELLING HAS PAST ORIGINAL LINES AND DR LOYA INCREASED ABX DOSAGE. PT TREATED FOR PAIN PER EMAR. NO DISTRESS NOTED AT THIS TIME WILL CONTINUE TO MONTIOR.
--- NOTE | 2022-03-03 20:57 | NUR ---
PHYSICIAN COMMUNICATION CONTACTED DR THOMAS TO NOTIFY HIM THAT THE PATIEN WAS EXPERIENCING 10/10 PAIN IN HIS L ELBOW DUE TO CELLULITUS, SWELLING INCREASING, AND CURRENT PAIN MEDICATIONS NOT EFFECTIVE. REPORTED THAT THE PATIENT WAS WONDERING IF HE COULD GET MORPHINE SINCE HE RECEIVED 4 MG IV MORPHINE WHICH WAS EFFECTIVE IN THE ER. DR THOMAS ORDERED 4 MG IV MORPHINE EVERY SIX HOURS NEEDED.
[2022-03-04 05:08] LABS: BASOPHILS ABSOLUTE AUTO 0.02 K/mm3 (0.00-0.23); BASOPHILS PERCENT AUTO 0 % (0-2); EOSINOPHILS PERCENT AUTO 2 % (0-6); Hematocrit 46.3 % (37.0-53.0); Hemoglobin 16.2 g/dL (13.5-17.5); IMMATURE GRAN ABSOLUTE AUTO 0.03 K/mm3 (0.00-0.10); IMMATURE GRAN PERCENT AUTO 0 % (0-1); LYMPHOCYTES ABSOLUTE AUTO 1.25 K/mm3 (0.84-5.20); LYMPHOCYTES PERCENT AUTO 11 % (21-46); MONOCYTES ABSOLUTE AUTO 0.74 K/mm3 (0.16-1.47); MONOCYTES PERCENT AUTO 6 % (4-13); Mean Corpuscular HGB 31.1 pg (26.0-34.0); Mean Corpuscular Volume 89 fL (80-100); NEUTROPHILS ABSOLUTE AUTO 9.54 K/mm3 (1.96-9.15); NEUTROPHILS PERCENT AUTO 81 % (41-73); Platelet Count 227 K/mm3 (150-400); RDW Coefficient Variation 11.9 % (11.7-14.2); RDW Standard Deviation 38.7 fL (35.1-46.3); Red Blood Cell Count 5.21 M/mm3 (4.30-5.90); White Blood Cell Count 11.78 K/mm3 (4.00-11.30)
[2022-03-04 05:47] LABS: Bun/Creatinine Ratio 11.8 (12.0-20.0); Creatinine, Blood 0.59 mg/dL (0.60-1.20); Potassium, Blood 3.4 mmol/L (3.5-5.5)
--- NOTE | 2022-03-04 06:12 | NUR ---
SHIFT SUMMARY PATIENT ALERT AND ORIENTED. MEDICATED PER EMAR FOR PAIN. HAD NO COMPLAINTS OF SHORTNESS OF BREATH. NO ACUTE ISSUES NOTED OVERNIGHT. CALL LIGHT WITHIN REACH. REPORT GIVEN TO ONCOMING RN.
--- NOTE | 2022-03-04 18:25 | NUR ---
PT AOX4 AND COOPERATIVE OF CARE. PT DOING WELL AND INDEPENDENT IN ROOM. L ELBOW HAS NOT WORSENED. PT TREATED FOR PAIN PER EMAR. NO DISTRESS NOTED. CALL LIGHT WITHIN REACH WILL CONTINUE TO MONITOR.
[2022-03-05 04:47] LABS: Hematocrit 46.3 % (37.0-53.0); Hemoglobin 16.4 g/dL (13.5-17.5); Mean Corpuscular HGB 31.4 pg (26.0-34.0); Mean Corpuscular HGB Conc 35.4 g/dL (31.5-36.5); Mean Corpuscular Volume 89 fL (80-100); Mean Platelet Volume 10.1 fL (9.1-12.4); Platelet Count 191 K/mm3 (150-400); RDW Coefficient Variation 11.8 % (11.7-14.2); RDW Standard Deviation 38.2 fL (35.1-46.3); Red Blood Cell Count 5.22 M/mm3 (4.30-5.90); White Blood Cell Count 9.97 K/mm3 (4.00-11.30)
[2022-03-05 05:06] LABS: Bun/Creatinine Ratio 14.9 (12.0-20.0); Calcium, Blood 8.7 mg/dL (8.5-10.1); Creatinine, Blood 0.6 mg/dL (0.60-1.20); Potassium, Blood 3.8 mmol/L (3.5-5.5)
[2022-03-05 05:32] LABS: BAND PERCENT MAN 4 % (0-8); BASOPHILS ABSOLUTE MAN 0.09 K/mm3 (0.00-0.23); BASOPHILS PERCENT MAN 1 % (0-2); EOSINOPHILS PERCENT MAN 0 % (0-6); LYMPHOCYTES ABSOLUTE MAN 0.09 K/mm3 (0.84-5.20); LYMPHOCYTES PERCENT MAN 1 % (21-46); MONOCYTES ABSOLUTE MAN 0.49 K/mm3 (0.16-1.47); MONOCYTES PERCENT MAN 5 % (4-13); NEUTROPHILS ABSOLUTE MAN 9.27 K/mm3 (1.96-9.15); SEG NEUTROPHILS PERCENT MAN 89 % (41-73); TOTAL CELLS COUNTED 100
--- NOTE | 2022-03-05 06:02 | NUR ---
SHIFT SUMMARY PATIENT ALERT AND ORIENTED. PATIENT EXPERIENCED NAUSEA/VOMITING OVERNIGHT AND SPIKED A FEVER OF 102.0. MEDICATED PER EMAR FOR PAIN, NAUSEA, AND FEVER. TEMPERATURE IS NOW 99.1. NO OTHER ISSUES NOTED. CALL LIGHT WITHIN REACH. REPORT GIVEN TO ONCOMING RN.
--- NOTE | 2022-03-05 18:43 | NUR ---
PATIENT IS ALERT AND ORIENTED AND COOPERATIVE WITH CARE. C/O LEFT ELBOW PAIN AND MEDICATED PER EMAR. PATIENT DID SPIKE A FEVER THIS AFTERNOON, MEDICATED WITH TYLENOL PER EMAR. HE SLEPT MOST OF THE SHIFT BUT STARTED FEELING BETTER THIS EVENING AND WAS UP WALKING AROUND HIS ROOM AND CLEANING UP HIS THINGS. WILL CONTINUE TO MONITOR
[2022-03-06 05:45] LABS: Bun/Creatinine Ratio 18.4 (12.0-20.0); Calcium, Blood 8.6 mg/dL (8.5-10.1); Creatinine, Blood 0.71 mg/dL (0.60-1.20)
--- NOTE | 2022-03-06 06:33 | NUR ---
SHIFT SUMMARY PATIENT ALERT AND ORIENTED. MEDICATED PER EMAR FOR PAIN. NO ACUTE ISSUES NOTED OVERNIGHT. CALL LIGHT WITHIN REACH. REPORT GIVEN TO ONCOMING RN.
[2022-03-06] MEDS ORDERED: VISBIOME 112.51 EACH PO (11:51)
[2022-03-06] MEDS ORDERED: OXAYDO5 M1 PO (11:56)
--- NOTE | 2022-03-06 14:33 | NUR ---
PT DISCHARGED. IVS REMOVED, HARD SCRIP PASSED ON, AND INFORMATION ON FOLLOWING UP GIVEN TO PT. HE WAS DISCHARGED AT 1420.
== END 2022-03-06 14:30 | disposition home or self-care (01) | DRG 872 ==
LOC: ER 16:57 → MEDS 21:29
PROVIDERS: Family Medicine; Student in an Organized Health Care Education/Training Program; ADMIT Family Medicine
DX: A41.9 Sepsis, unspecified organism (principal); L03.114 Cellulitis of left upper limb; F10.20 Alcohol dependence, uncomplicated; F15.10 Other stimulant abuse, uncomplicated; F17.210 Nicotine dependence, cigarettes, uncomplicated; F32.A Depression, unspecified; J45.909 Unspecified asthma, uncomplicated; Z71.6 Tobacco abuse counseling; Z86.14 Personal history of Methicillin resistant Staphylococcus aureus infection; Z98.1 Arthrodesis status; Z98.890 Other specified postprocedural states; Z88.2 Allergy status to sulfonamides; Z88.8 Allergy status to other drugs, medicaments and biological substances
CPT/HCPCS: 36415; 73201; 80048; 80053; 83605; 85025; 87040; 96365; 96375; 99284-25; A9270; J0690; J1650; J2270; J2405; J2543; J3010; J3370; J7050; J7120; Q9967

== ENCOUNTER 2022-03-12 16:37 | Emergency (ER) | payer OTHER ==
[~2022-03-12] VITALS: Ht 175.3 cm; Wt 76.2 kg
[~2022-03-12 16:37] MED LIST changes: +OLANZAPINE1022 PO; +OXAYDO5 M1 PO; +VISBIOME 112.51 EACH PO; +[UNRECOGNIZED DRUG - CODE] PO
== END 2022-03-12 17:38 | disposition home or self-care (01) ==
LOC: ER 16:37
DX: R56.9 Unspecified convulsions (principal); F17.210 Nicotine dependence, cigarettes, uncomplicated
CPT/HCPCS: 99284

== ENCOUNTER 2022-03-20 18:49 | Emergency (ER) | payer OTHER ==
[~2022-03-20] VITALS: Ht 180.3 cm; Wt 70.3 kg
[2022-03-20] MEDS ORDERED: GABA100 (19:29)
[2022-03-20] MEDS ORDERED: LEVE500 (19:29)
[2022-03-20 22:28] LABS: BASOPHILS ABSOLUTE AUTO 0.04 K/mm3 (0.00-0.23); BASOPHILS PERCENT AUTO 0 % (0-2); EOSINOPHILS ABSOLUTE AUTO 0.33 K/mm3 (0.00-0.68); EOSINOPHILS PERCENT AUTO 3 % (0-6); Hematocrit 46.7 % (37.0-53.0); Hemoglobin 16.6 g/dL (13.5-17.5); IMMATURE GRAN ABSOLUTE AUTO 0.02 K/mm3 (0.00-0.10); IMMATURE GRAN PERCENT AUTO 0 % (0-1); LYMPHOCYTES ABSOLUTE AUTO 2.11 K/mm3 (0.84-5.20); LYMPHOCYTES PERCENT AUTO 19 % (21-46); MONOCYTES ABSOLUTE AUTO 0.72 K/mm3 (0.16-1.47); MONOCYTES PERCENT AUTO 6 % (4-13); Mean Corpuscular HGB 30.9 pg (26.0-34.0); Mean Corpuscular HGB Conc 35.5 g/dL (31.5-36.5); Mean Corpuscular Volume 87 fL (80-100); Mean Platelet Volume 10.6 fL (9.1-12.4); NEUTROPHILS ABSOLUTE AUTO 8.19 K/mm3 (1.96-9.15); NEUTROPHILS PERCENT AUTO 72 % (41-73); Platelet Count 249 K/mm3 (150-400); RDW Coefficient Variation 11.7 % (11.7-14.2); RDW Standard Deviation 37.4 fL (35.1-46.3); Red Blood Cell Count 5.38 M/mm3 (4.30-5.90); White Blood Cell Count 11.41 K/mm3 (4.00-11.30)
[2022-03-20 22:49] LABS: Albumin, Blood 3.5 g/dL (3.4-5.0); Albumin/Globulin Ratio 1.2 (0.8-1.8); Bilirubin, Total 0.3 mg/dL (0.1-1.0); Bun/Creatinine Ratio 15.1 (12.0-20.0); Calcium, Blood 8.1 mg/dL (8.5-10.1); Creatinine, Blood 0.53 mg/dL (0.60-1.20); Globulin, Blood 2.8 g/dL (2.2-4.0); Potassium, Blood 3.8 mmol/L (3.5-5.5); Total Protein, Blood 6.3 g/dL (6.4-8.2)
== END 2022-03-20 23:42 | disposition home or self-care (01) ==
LOC: ER 18:49
PROVIDERS: Student in an Organized Health Care Education/Training Program
DX: R56.9 Unspecified convulsions (principal); Z88.2 Allergy status to sulfonamides; Z88.8 Allergy status to other drugs, medicaments and biological substances; Z79.899 Other long term (current) drug therapy
CPT/HCPCS: 36415; 80053; 83735; 85025; 93005; 93010; A9270

== ENCOUNTER 2022-05-22 20:57 | Emergency (ER) | payer OTHER ==
[~2022-05-22] VITALS: Ht 172.7 cm; Wt 86.2 kg
[~2022-05-22 20:57] MED LIST changes: +GABA100; +LEVE500
[2022-05-22 23:53] LABS: BASOPHILS ABSOLUTE AUTO 0.04 K/mm3 (0.00-0.23); BASOPHILS PERCENT AUTO 0 % (0-2); EOSINOPHILS PERCENT AUTO 2 % (0-6); Hematocrit 52.3 % (37.0-53.0); IMMATURE GRAN ABSOLUTE AUTO 0.02 K/mm3 (0.00-0.10); IMMATURE GRAN PERCENT AUTO 0 % (0-1); LYMPHOCYTES ABSOLUTE AUTO 1.78 K/mm3 (0.84-5.20); LYMPHOCYTES PERCENT AUTO 19 % (21-46); MONOCYTES ABSOLUTE AUTO 0.73 K/mm3 (0.16-1.47); MONOCYTES PERCENT AUTO 8 % (4-13); Mean Corpuscular HGB 31.2 pg (26.0-34.0); Mean Corpuscular HGB Conc 36.3 g/dL (31.5-36.5); Mean Corpuscular Volume 86 fL (80-100); Mean Platelet Volume 10.7 fL (9.1-12.4); NEUTROPHILS ABSOLUTE AUTO 6.67 K/mm3 (1.96-9.15); NEUTROPHILS PERCENT AUTO 71 % (41-73); Platelet Count 209 K/mm3 (150-400); RDW Coefficient Variation 12.2 % (11.7-14.2); RDW Standard Deviation 38.5 fL (35.1-46.3); Red Blood Cell Count 6.09 M/mm3 (4.30-5.90); White Blood Cell Count 9.44 K/mm3 (4.00-11.30)
[2022-05-23 00:08] LABS: Anion Gap 8 mmol/L (6-16); Blood Urea Nitrogen 12 mg/dL (8-24); Bun/Creatinine Ratio 19.4 (12.0-20.0); C-REACTIVE PROTEIN, EXT RANGE <0.290 mg/dL (0.000-0.300); CO2, Blood 26 mmol/L (21-32); Calcium, Blood 8.9 mg/dL (8.5-10.1); Chloride, Blood 103 mmol/L (98-108); Creatinine, Blood 0.62 mg/dL (0.60-1.20); Glomerular Filtration Rate 125 (60-); Glucose, Blood 116 mg/dL (70-99); Potassium, Blood 3.6 mmol/L (3.5-5.5); Sodium, Blood 137 mmol/L (136-145)
== END 2022-05-23 02:24 | disposition home or self-care (01) ==
LOC: ER 20:57
PROVIDERS: Emergency Medicine
DX: R53.1 Weakness (principal); R25.2 Cramp and spasm; F17.210 Nicotine dependence, cigarettes, uncomplicated; Z88.2 Allergy status to sulfonamides; Z88.8 Allergy status to other drugs, medicaments and biological substances; Z79.899 Other long term (current) drug therapy
CPT/HCPCS: 36415; 80048; 85025; 85651; 86140; A9270; J2060

== ENCOUNTER 2022-05-27 20:02 | Emergency (ER) | payer OTHER ==
[~2022-05-27] VITALS: Ht 175.3 cm; Wt 74.8 kg
[2022-05-27 22:44] LABS: BASOPHILS ABSOLUTE AUTO 0.04 K/mm3 (0.00-0.23); BASOPHILS PERCENT AUTO 1 % (0-2); EOSINOPHILS ABSOLUTE AUTO 0.41 K/mm3 (0.00-0.68); EOSINOPHILS PERCENT AUTO 5 % (0-6); Hematocrit 42.2 % (37.0-53.0); Hemoglobin 15.3 g/dL (13.5-17.5); IMMATURE GRAN ABSOLUTE AUTO 0.01 K/mm3 (0.00-0.10); IMMATURE GRAN PERCENT AUTO 0 % (0-1); LYMPHOCYTES ABSOLUTE AUTO 1.83 K/mm3 (0.84-5.20); LYMPHOCYTES PERCENT AUTO 21 % (21-46); MONOCYTES ABSOLUTE AUTO 0.52 K/mm3 (0.16-1.47); MONOCYTES PERCENT AUTO 6 % (4-13); Mean Corpuscular HGB 31.9 pg (26.0-34.0); Mean Corpuscular HGB Conc 36.3 g/dL (31.5-36.5); Mean Corpuscular Volume 88 fL (80-100); Mean Platelet Volume 10.6 fL (9.1-12.4); NEUTROPHILS ABSOLUTE AUTO 5.83 K/mm3 (1.96-9.15); NEUTROPHILS PERCENT AUTO 68 % (41-73); Platelet Count 180 K/mm3 (150-400); RDW Coefficient Variation 12.3 % (11.7-14.2); RDW Standard Deviation 39.9 fL (35.1-46.3); White Blood Cell Count 8.64 K/mm3 (4.00-11.30)
[2022-05-27 23:04] LABS: Anion Gap 4 mmol/L (6-16); Blood Urea Nitrogen 12 mg/dL (8-24); C-REACTIVE PROTEIN, EXT RANGE <0.290 mg/dL (0.000-0.300); CO2, Blood 28 mmol/L (21-32); Calcium, Blood 7.6 mg/dL (8.5-10.1); Chloride, Blood 108 mmol/L (98-108); Creatinine, Blood 0.67 mg/dL (0.60-1.20); Glomerular Filtration Rate 122 (60-); Glucose, Blood 136 mg/dL (70-99); Magnesium, Blood 2.1 mg/dL (1.6-2.4); Potassium, Blood 3.6 mmol/L (3.5-5.5); Prolactin 4.9 ng/mL (2.5-17.4); Sodium, Blood 140 mmol/L (136-145)
[2022-05-27] MEDS ORDERED: BACLOFEN5 M1 PO (23:48)
== END 2022-05-28 01:18 | disposition home or self-care (01) ==
LOC: ER 20:02
PROVIDERS: Student in an Organized Health Care Education/Training Program
DX: E83.51 Hypocalcemia (principal); J45.909 Unspecified asthma, uncomplicated; F17.210 Nicotine dependence, cigarettes, uncomplicated; Z98.1 Arthrodesis status; Z88.6 Allergy status to analgesic agent; Z88.2 Allergy status to sulfonamides; Z88.8 Allergy status to other drugs, medicaments and biological substances; Z79.899 Other long term (current) drug therapy
CPT/HCPCS: 36415; 51798; 80048; 83735; 84146; 85025; 85651; 86140; A9270

== ENCOUNTER 2022-06-14 13:17 | Emergency (ER) | payer OTHER ==
[~2022-06-14] VITALS: Ht 175.3 cm; Wt 72.6 kg
[~2022-06-14 13:17] MED LIST changes: +BACLOFEN5 M1 PO
[2022-06-14] MEDS ORDERED: LEVE500 PO (22:05)
[2022-06-14] MEDS ORDERED: ABILIFY MYCITE5 M2 PO (22:06)
== END 2022-06-14 22:32 | disposition home or self-care (01) ==
LOC: ER 13:17
DX: R25.2 Cramp and spasm (principal); R53.1 Weakness; F17.210 Nicotine dependence, cigarettes, uncomplicated; Z79.899 Other long term (current) drug therapy
CPT/HCPCS: A9270

== ENCOUNTER 2022-06-17 17:14 | Emergency (ER) | payer OTHER ==
[~2022-06-17] VITALS: Ht 175.3 cm; Wt 72.6 kg
[~2022-06-17 17:14] MED LIST changes: +ABILIFY MYCITE5 M2 PO
== END 2022-06-17 21:18 | disposition home or self-care (01) ==
LOC: ER 17:14
DX: M23.92 Unspecified internal derangement of left knee (principal); M23.91 Unspecified internal derangement of right knee; R20.0 Anesthesia of skin; Z88.6 Allergy status to analgesic agent; Z88.2 Allergy status to sulfonamides; Z88.8 Allergy status to other drugs, medicaments and biological substances; Z79.899 Other long term (current) drug therapy; F17.210 Nicotine dependence, cigarettes, uncomplicated
CPT/HCPCS: A9270

== ENCOUNTER 2024-01-16 00:08 | Emergency (ER) | payer OTHER ==
[~2024-01-16] VITALS: Ht 182.9 cm; Wt 74.8 kg
[2024-01-16 01:13] VITALS: BP 130/94
[2024-01-16] MEDS ORDERED: Acetaminophen 325 MG TABLET PO ONE (01:45)
== END 2024-01-16 04:25 | disposition home or self-care (01) ==
LOC: ER 00:08
DX: S90.811A Abrasion, right foot, initial encounter (principal); S00.81XA Abrasion of other part of head, initial encounter; M79.672 Pain in left foot; F15.90 Other stimulant use, unspecified, uncomplicated; J45.909 Unspecified asthma, uncomplicated; F17.210 Nicotine dependence, cigarettes, uncomplicated; X58.XXXA Exposure to other specified factors, initial encounter; Z79.899 Other long term (current) drug therapy; Z88.6 Allergy status to analgesic agent; Z88.2 Allergy status to sulfonamides; Z88.1 Allergy status to other antibiotic agents
CPT/HCPCS: 99283; A9270

== ENCOUNTER 2024-05-06 14:14 | Emergency (ER) | payer OTHER ==
[~2024-05-06] VITALS: Ht 175.3 cm; Wt 69.3 kg
[2024-05-06 14:20] VITALS: BP 165/90
[2024-05-06] MEDS ORDERED: Acetaminophen 500 MG Tab PO ONE (16:05)
== END 2024-05-06 16:43 | disposition home or self-care (01) ==
LOC: ER 14:14
DX: M25.562 Pain in left knee (principal); M25.561 Pain in right knee; G40.409 Other generalized epilepsy and epileptic syndromes, not intractable, without status epilepticus; J45.909 Unspecified asthma, uncomplicated; F17.210 Nicotine dependence, cigarettes, uncomplicated; Z88.6 Allergy status to analgesic agent; Z88.2 Allergy status to sulfonamides; Z88.1 Allergy status to other antibiotic agents; Z79.899 Other long term (current) drug therapy
CPT/HCPCS: 99282; A9270

== ENCOUNTER 2024-06-18 10:43 | Emergency (ER) | payer OTHER ==
[~2024-06-18] VITALS: Ht 175.3 cm; Wt 72.6 kg
[2024-06-18 12:15] LABS: BASOPHILS ABSOLUTE AUTO 0.04 K/mm3 (0.00-0.23); BASOPHILS PERCENT AUTO 1 % (0-2); EOSINOPHILS ABSOLUTE AUTO 0.06 K/mm3 (0.00-0.68); EOSINOPHILS PERCENT AUTO 1 % (0-6); Hematocrit 47.6 % (37.0-53.0); Hemoglobin 17.2 g/dL (13.5-17.5); IMMATURE GRAN ABSOLUTE AUTO 0.02 K/mm3 (0.00-0.10); IMMATURE GRAN PERCENT AUTO 0 % (0-1); LYMPHOCYTES ABSOLUTE AUTO 0.69 K/mm3 (0.84-5.20); LYMPHOCYTES PERCENT AUTO 8 % (21-46); MONOCYTES ABSOLUTE AUTO 0.42 K/mm3 (0.16-1.47); MONOCYTES PERCENT AUTO 5 % (4-13); Mean Corpuscular HGB Conc 36.1 g/dL (31.5-36.5); Mean Corpuscular Volume 89 fL (80-100); Mean Platelet Volume 11.5 fL (9.1-12.4); NEUTROPHILS ABSOLUTE AUTO 7.43 K/mm3 (1.96-9.15); NEUTROPHILS PERCENT AUTO 86 % (41-73); Platelet Count 159 K/mm3 (150-400); RDW Standard Deviation 39.5 fL (35.1-46.3); Red Blood Cell Count 5.38 M/mm3 (4.30-5.90); White Blood Cell Count 8.66 K/mm3 (4.00-11.30)
[2024-06-18 12:34] LABS: Albumin, Blood 3.9 g/dL (3.4-5.0); Albumin/Globulin Ratio 1.1 (0.8-1.8); Bilirubin, Total 0.4 mg/dL (0.1-1.0); Bun/Creatinine Ratio 33.3 (12.0-20.0); Calcium, Blood 9.3 mg/dL (8.5-10.1); Creatinine, Blood 0.6 mg/dL (0.60-1.20); Globulin, Blood 3.4 g/dL (2.2-4.0); Potassium, Blood 5.1 mmol/L (3.5-5.5); Total Protein, Blood 7.3 g/dL (6.4-8.2)
[2024-06-18] MEDS ORDERED: levETIRAcetam 1,000 MG in NS 100 ML IV ONE (15:40)
[2024-06-18] MEDS ORDERED: NS 1,000 ML IV SCH (15:45)
[2024-06-18] MEDS ORDERED: LEVE500 PO (17:14)
[2024-06-18 17:26] VITALS: BP 128/95
== END 2024-06-18 17:29 | disposition home or self-care (01) ==
LOC: ER 10:43
PROVIDERS: Physician Assistant
DX: G40.909 Epilepsy, unspecified, not intractable, without status epilepticus (principal); R73.9 Hyperglycemia, unspecified; F17.210 Nicotine dependence, cigarettes, uncomplicated; Z88.2 Allergy status to sulfonamides; Z88.8 Allergy status to other drugs, medicaments and biological substances
CPT/HCPCS: 36415; 80053; 82947; 85025; 93005; 93010; 96361; 96374; 99284-25; J1953; J7030

== ENCOUNTER 2024-06-29 12:47 | Inpatient (IN) | payer OTHER ==
[~2024-06-29] VITALS: Ht 175.3 cm; Wt 56.6 kg
[2024-06-29 13:52] LABS: BASOPHILS ABSOLUTE AUTO 0.04 K/mm3 (0.00-0.23); BASOPHILS PERCENT AUTO 1 % (0-2); EOSINOPHILS ABSOLUTE AUTO 0.06 K/mm3 (0.00-0.68); EOSINOPHILS PERCENT AUTO 1 % (0-6); Hematocrit 52.2 % (37.0-53.0); Hemoglobin 19.3 g/dL (13.5-17.5); IMMATURE GRAN ABSOLUTE AUTO 0.04 K/mm3 (0.00-0.10); IMMATURE GRAN PERCENT AUTO 1 % (0-1); LYMPHOCYTES ABSOLUTE AUTO 1.35 K/mm3 (0.84-5.20); LYMPHOCYTES PERCENT AUTO 16 % (21-46); MONOCYTES PERCENT AUTO 6 % (4-13); Mean Corpuscular HGB 32.1 pg (26.0-34.0); Mean Corpuscular Volume 87 fL (80-100); NEUTROPHILS PERCENT AUTO 76 % (41-73); Platelet Count 233 K/mm3 (150-400); RDW Coefficient Variation 11.9 % (11.7-14.2); RDW Standard Deviation 37.4 fL (35.1-46.3); Red Blood Cell Count 6.02 M/mm3 (4.30-5.90); White Blood Cell Count 8.39 K/mm3 (4.00-11.30)
[2024-06-29 14:22] LABS: Albumin, Blood 4.4 g/dL (3.4-5.0); Albumin/Globulin Ratio 1.2 (0.8-1.8); Bilirubin, Total 1.4 mg/dL (0.1-1.0); Bun/Creatinine Ratio 26.1 (12.0-20.0); Creatinine, Blood 0.69 mg/dL (0.60-1.20); Globulin, Blood 3.7 g/dL (2.2-4.0); Potassium, Blood 4.6 mmol/L (3.5-5.5); Total Protein, Blood 8.1 g/dL (6.4-8.2)
[2024-06-29] MEDS ORDERED: NS 1,000 ML IV SCH (18:25)
[2024-06-29 19:08] LABS: Source, Urine Clean Catch
[2024-06-29 19:12] LABS: Appearance, Urine Clear (Clear); Bilirubin, Urine Neg (Neg); Blood, Urine Neg (Neg); Glucose Qualitative, Urine 4+ (Neg); Ketones, Urine 4+ (Neg); Leukocyte Esterase, Urine Neg (Neg); Nitrite, Urine Neg (Neg); Protein, Urine Neg (Neg); Urobilinogen, Urine NORM (Normal)
[2024-06-29 19:17] LABS: Color, Urine Pale Yellow (P-Yellow)
[2024-06-29] MEDS ORDERED: Insulin Human Regular 100 UNIT in NS 100 ML IV SCH ×2 (20:55→23:20)
[2024-06-29] MEDS ORDERED: NS KCl 20mEq 1,000 ML IV SCH (20:55)
[2024-06-29 20:57] LABS: Bun/Creatinine Ratio 28.4 (12.0-20.0); Creatinine, Blood 0.53 mg/dL (0.60-1.20); Magnesium, Blood 1.7 mg/dL (1.6-2.4); Phosphorus, Blood 3.2 mg/dL (2.5-4.9); Potassium, Blood 4.1 mmol/L (3.5-5.5)
[2024-06-29] MEDS ORDERED: Metoclopramide HCl 5MG / ML 2ML Vial IV PRN (22:45)
[2024-06-29] MEDS ORDERED: Ondansetron HCl 2 MG / ML 2ML Vial IV PRN (22:45)
[2024-06-29] MEDS ORDERED: NS 1,000 ML IV ONE (22:45)
[2024-06-29] MEDS ORDERED: FLU VACC TS2024-25(6MOS UP)/PF 45 MCG/0.5 ML SYRINGE IM ONE (22:45)
[2024-06-29 23:00] VITALS: BP 130/73
--- NOTE | 2024-06-29 23:00 | NUR ---
ASSUMPTION OF CARE/TRANSFER TO ICU PT TRANSFERED TO ICU AT APPROXIMATELY 2252. PT TRANSFERED TO ICU BED VIA SBA. PT ALERT AND ORIENTED X4, ANSWERS QUESTIONS APPROPRIATELY, FOLLOWS DIRECTION WHEN PROMPTED AND IS ABLE TO MAKE HIS NEEDS KNOWN. PT MOVES EXTREMITIES EQUALLY BILATERALLY. HR 80-100 SINUS, MAP >65, PT DENIES CP/PRESSURE. PT ON RA, OXYGEN SATURATION >95%. ABDOMEN SOFT, BOWEL TONES ACTIVE THROUGHOUT, PT DENIES N/V. PT USES URINAL TO VOID. PIV IN PLACE TO RFA AND RAC. INSULIN INFUSING AT 3.23 UNITS/HR ON ARRIVAL TO UNIT, NS WITH 20MEQ KCL INFUSING AT 100MLS/HR ON ARRIVAL TO UNIT. BED IN LOWEST POSITON, CALL LIGHT WITHIN REACH CARE CONTINUES.
[2024-06-29 23:15] VITALS: BP 118/70
[2024-06-29] MEDS ORDERED: Mag Sulfate 1 GM/D5% 100ML 100 ML IV STA (23:17)
[2024-06-29 23:30] VITALS: BP 113/84
[2024-06-29 23:45] VITALS: BP 118/75
[2024-06-29 23:48] LABS: Anion Gap 15 mmol/L (3-11); Blood Urea Nitrogen 13 mg/dL (8-24); Bun/Creatinine Ratio 23.5 (12.0-20.0); CO2, Blood 20 mmol/L (21-32); Chloride, Blood 101 mmol/L (98-108); Creatinine, Blood 0.55 mg/dL (0.60-1.20); Glomerular Filtration Rate 128 (60-); Glucose, Blood 411 mg/dL (70-99); Sodium, Blood 132 mmol/L (136-145)
[2024-06-30] VITALS (24 sets, daily range): BP systolic 11–134; BP diastolic 67–95
[2024-06-30] MEDS ORDERED: LORazepam 2 MG/ML 1ML Injection IV PRN ×2 (00:10→04:10)
[2024-06-30] MEDS ORDERED: ChlordiazePOXIDE 25 MG Cap PO PRN (00:10)
[2024-06-30 00:13] LABS: U Amphetamine Screen Not Detected; U Barbituate Screen Not Detected; U Benzodiazapine Screen Not Detected; U Buprenorphine Screen Not Detected; U Cannabinoids Screen DETECTED; U Cocaine Screen Not Detected; U Methadone Screen Not Detected; U Methamphetamine Screen Not Detected; U Opiates Screen Not Detected; U Oxycodone Screen Not Detected; U Phencyclidine Screen Not Detected
[2024-06-30 00:27] LABS: Ethanol (Alcohol), Blood, Med <3 mg/dL
--- NOTE | 2024-06-30 01:36 | NUR ---
IGNITION SOURCE/VENEER DRIER TAILER PT VENEER DRIER TAILER SECURED IN LOCK BOX IN PT ROOM.
[2024-06-30] MEDS ORDERED: D5W-1/2NS 1,000 ML IV SCH (02:00)
[2024-06-30] MEDS ORDERED: NS 250 ML IV PRN (02:55)
[2024-06-30 03:58] LABS: BASOPHILS ABSOLUTE AUTO 0.03 K/mm3 (0.00-0.23); BASOPHILS PERCENT AUTO 1 % (0-2); EOSINOPHILS ABSOLUTE AUTO 0.14 K/mm3 (0.00-0.68); EOSINOPHILS PERCENT AUTO 2 % (0-6); Hematocrit 40.2 % (37.0-53.0); Hemoglobin 15.1 g/dL (13.5-17.5); IMMATURE GRAN ABSOLUTE AUTO 0.02 K/mm3 (0.00-0.10); IMMATURE GRAN PERCENT AUTO 0 % (0-1); LYMPHOCYTES ABSOLUTE AUTO 1.56 K/mm3 (0.84-5.20); LYMPHOCYTES PERCENT AUTO 26 % (21-46); MONOCYTES ABSOLUTE AUTO 0.38 K/mm3 (0.16-1.47); MONOCYTES PERCENT AUTO 6 % (4-13); Mean Corpuscular HGB 31.9 pg (26.0-34.0); Mean Corpuscular HGB Conc 37.6 g/dL (31.5-36.5); Mean Corpuscular Volume 85 fL (80-100); Mean Platelet Volume 11.2 fL (9.1-12.4); NEUTROPHILS ABSOLUTE AUTO 3.84 K/mm3 (1.96-9.15); NEUTROPHILS PERCENT AUTO 64 % (41-73); Platelet Count 173 K/mm3 (150-400); RDW Coefficient Variation 11.8 % (11.7-14.2); RDW Standard Deviation 36.4 fL (35.1-46.3); Red Blood Cell Count 4.74 M/mm3 (4.30-5.90); White Blood Cell Count 5.97 K/mm3 (4.00-11.30)
[2024-06-30] MEDS ORDERED: levETIRAcetam 1,000 MG in NS 100 ML IV ONE (04:05)
[2024-06-30 04:14] LABS: Albumin/Globulin Ratio 1.2 (0.8-1.8); Bilirubin, Total 0.7 mg/dL (0.1-1.0); Bun/Creatinine Ratio 29.7 (12.0-20.0); Calcium, Blood 7.8 mg/dL (8.5-10.1); Creatinine, Blood 0.4 mg/dL (0.60-1.20); Globulin, Blood 2.6 g/dL (2.2-4.0); Potassium, Blood 3.4 mmol/L (3.5-5.5)
[2024-06-30 04:17] LABS: Total Protein, Blood 5.6 g/dL (6.4-8.2)
--- NOTE | 2024-06-30 04:28 | NUR ---
PT UPDATE THIS RN CALLED TO PT ROOM BY LIBRARY TECHNOLOGY INSTRUCTOR. UPON ENTERING THE ROOM THIS RN INFOMRED THAT THE PATIENT HAD APPROXIMATELY 30-45 SECOND PERIOD OF APNEA. PT APPEARS TO BE POSTICTAL, NOT RESPONSIVE. PT WITH INCREASED ORAL SECRETIONS, NOT FOLLOWING DIRECTION, SUCTIONED ORALLY. RT CALLED TO BEDSIDE. PT OXYGEN SATURATION REMAINING IN THE 70'S, NPA INSERTED, PT PLACED ON NONREBREATHER AT 15L. UPON INSERTION OF NPA PT BECAME MORE ALERT AND AGGITATED ATTEMPTING TO PULL AT MASK AND RESISTING CARE. DR. THOMAS CALLED TO BEDSIDE, ASSESSED PATIENT. PT BECOMING MORE AWAKE BUT STILL NOT FOLLOWING DIRECTION, ORDERS RECEIVED FOR KEPPRA IV, SEE EMAR. AT THIS TIME PT ALERT, ORIENTED X4, ANSWERING QUESTIONS APPROPRIATELY, FOLLOWING DIRECTIONS WHEN PROMPTED. OXYGEN TITRATED DOWN TO 4LPM VIA NC. PT INFOMRED OF PRECEEDING EVENTS. CARE CONTINUES.
[2024-06-30] MEDS ORDERED: Potassium Chl 20MEQ/Water100ML 100 ML IV SCH (06:00)
--- NOTE | 2024-06-30 06:03 | NUR ---
SHIFT SUMMARY NO ACUTE CHANGES SINCE LAST NURSE NOTE. PT RESTING IN BED, SLEEPING BUT AROUSABLE. PT ORIENTED X4, ANSWERS QUESTIONS APPROPRIATELY, FOLLOWS DIRECITON WHEN PROMPTED AND IS ABLE TO MAKE HIS NEEDS KNOWN. PT MOVES EXTREMITIES EQUALLY BILATERALLY. HR 70-100'S SINUS, MAP >65. PT ON RA, OXYGEN SATURATION >90%. ABDOMEN SOFT, BOWEL TONES ACTIVE THROUGHOUT, PT DENIES N/V. PT USES URINAL TO VOID. PIV IN PLACE TO RFA, RAC AND LFA. INSULIN INFUSING AT 1.7UNITS/HR, D5 1/2NS INFUSING AT 100MLS/HR. BED IN LOWEST POSITION, CALL LIGHT WITHIN REACH, CARE CONTINUES.
[2024-06-30] MEDS ORDERED: Potassium Chloride 40 MEQ in NS 250 ML IV ONE (06:30)
[2024-06-30] MEDS ORDERED: Insulin Human Lispro 100 Units/ML 3ML Syringe SC SCH (07:30)
[2024-06-30] MEDS ORDERED: Insulin Glargine-Yfgn 100 Unit/mL 3 ML SYR SC SCH (08:00)
[2024-06-30] MEDS ORDERED: LevETIRAcetam 500 MG Tab PO SCH (09:00)
[2024-06-30] MEDS ORDERED: levETIRAcetam 750 MG in NS 100 ML IV SCH (09:00)
[2024-06-30] MEDS ORDERED: Enoxaparin 40 MG/0.4 ML SYR SC SCH (09:00)
[2024-06-30] MEDS ORDERED: Gabapentin 100 MG Cap PO SCH (14:00)
[2024-06-30 15:32] LABS: Bun/Creatinine Ratio 33.2 (12.0-20.0); Calcium, Blood 8.2 mg/dL (8.5-10.1); Creatinine, Blood 0.39 mg/dL (0.60-1.20); Potassium, Blood 4.1 mmol/L (3.5-5.5)
--- NOTE | 2024-06-30 18:07 | NUR ---
CATHY HAS DONE VERY WELL TODAY. HE HAS EXPERIENCED NO SEIZURE ACTIVITY. HE HAS BEEN ASKING A LOT OF GOOD QUESTIONS ABOUT HIS DIABETES EDUCATION. A LOT OF INFORMATION REGARDING DIABETES EDUCATION WAS PRINTED AND PRESENTED TO HIM. HE WAS VERY APPRECIATIVE. HE IS ALSO TAKING AN ACTIVE INTEREST IN HIS NUTRITION CHOICES. HE HAS BEEN DOWNGRADED TO MEDICAL STATUS, NO TELE.
[2024-06-30] MEDS ORDERED: levETIRAcetam 750 MG TABLET PO SCH (21:00)
--- NOTE | 2024-06-30 21:52 | NUR ---
ASSUMPTION OF CARE PT LYING IN BED ALERT AND ORIENTED. FOLLOWS COMMANDS, JUDITH, ASKS LOTS OF QUESTIONS ABOUT HIS CARE- RECEPTIVE TO LEARNING. HR SINUS RHYTHM WITH RATE OF 68. BP 111/80. RESPIRATIONS REGULAR WITH O2 SAT AT 98% ON RA. EXP WHEEZING NOTED AND PT SAYS HIS BREATHING FEELS CONSTRAINED AT BASELINE. WILL MONITOR. NO CHEST PAIN/PRESSURE, AB PAIN, DIZZINESS. PT USES URINAL IN BED. PT GIVEN KEPPRA AND GABAPENTIN AND LEFT IN ROOM WITH CALL LIGHT HANDY.
[2024-07-01] VITALS (8 sets, daily range): BP systolic 106–128; BP diastolic 65–97
[2024-07-01 03:36] LABS: Hematocrit 39.7 % (37.0-53.0); Hemoglobin 14.9 g/dL (13.5-17.5); Mean Corpuscular HGB Conc 37.5 g/dL (31.5-36.5); Mean Corpuscular Volume 85 fL (80-100); Mean Platelet Volume 10.9 fL (9.1-12.4); Platelet Count 135 K/mm3 (150-400); RDW Coefficient Variation 11.8 % (11.7-14.2); RDW Standard Deviation 36.4 fL (35.1-46.3); Red Blood Cell Count 4.66 M/mm3 (4.30-5.90); White Blood Cell Count 6.41 K/mm3 (4.00-11.30)
[2024-07-01 03:57] LABS: Albumin, Blood 2.8 g/dL (3.4-5.0); Anion Gap 13 mmol/L (3-11); Blood Urea Nitrogen 14 mg/dL (8-24); Bun/Creatinine Ratio 30.6 (12.0-20.0); CO2, Blood 24 mmol/L (21-32); Calcium, Blood 8.2 mg/dL (8.5-10.1); Chloride, Blood 99 mmol/L (98-108); Creatinine, Blood 0.46 mg/dL (0.60-1.20); Glomerular Filtration Rate 135 (60-); Glucose, Blood 316 mg/dL (70-99); Magnesium, Blood 1.8 mg/dL (1.6-2.4); Phosphorus, Blood 3.2 mg/dL (2.5-4.9); Potassium, Blood 3.8 mmol/L (3.5-5.5); Sodium, Blood 132 mmol/L (136-145)
--- NOTE | 2024-07-02 03:50 | NUR ---
ASSUMPTION OF CARE/START OF SHIFT PT LYING IN BED ALERT AND ORIENTED. FOLLOWS COMMANDS, JUDITH, ASKS LOTS OF QUESTIONS ABOUT HIS CARE- RECEPTIVE TO LEARNING. HR SINUS RHYTHM WITH RATE OF 74. BP 112/72. RESPIRATIONS REGULAR WITH O2 SAT AT 98% ON RA. NO CHEST PAIN/PRESSURE, AB PAIN, DIZZINESS. PT USES URINAL IN BED. PT GIVEN KEPPRA AND GABAPENTIN, WELL HS INSULIN AND LEFT IN ROOM WITH CALL LIGHT HANDY.
--- NOTE | 2024-07-02 08:06 | NUR ---
SHIFT SUMMARY NO ACUTE CHANGES SINCE LAST NURSE NOTE. PT RESTING IN BED, SLEEPING BUT AROUSABLE. PT ORIENTED X4, ANSWERS QUESTIONS APPROPRIATELY, FOLLOWS DIRECITON WHEN PROMPTED AND IS ABLE TO MAKE HIS NEEDS KNOWN. PT MOVES EXTREMITIES EQUALLY BILATERALLY. 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 HR 70-100'S SINUS, MAP >65. PT ON RA, OXYGEN SATURATION >90%. ABDOMEN SOFT, BOWEL TONES ACTIVE THROUGHOUT, PT DENIES N/V. PT USES URINAL TO VOID. PIV IN PLACE TO RFA. DIABETIC EDUCATION HAS CONTINUED EVERY SHIFT. BED IN LOWEST POSITION, CALL LIGHT WITHIN REACH, CARE CONTINUES.
[2024-07-02 08:39] VITALS: BP 98/60
[2024-07-02] MEDS ORDERED: Insulin Glargine-Yfgn 100 Unit/mL 3 ML SYR SC SCH (09:00)
--- NOTE | 2024-07-02 09:13 | NUR ---
INSULIN: Pt successfully self administed insulins with RN supervision. Pt asked appropriate questions throughout and demonstrates self advocacy.
[2024-07-02 15:50] VITALS: BP 105/81
[2024-07-02] MEDS ORDERED: GABA300 PO (15:50)
[2024-07-02] MEDS ORDERED: LEVE500 PO (15:50)
[2024-07-02] MEDS ORDERED: BASAGLAR K100 UNIT/6 SC (15:52)
--- NOTE | 2024-07-02 16:51 | NUR ---
PT D/C HOME... PT D/C HOME, VSS. NEW MEDICATIONS FAXED TO PT'S PHARMACY OF CHOICE. DISCHARGE EDUCATION PROVIDED TO PT IN WRITTEN AND VERBAL FORMAT. PT'S IVs REMOVED WNL. ALL PT'S BELONINGS PACKED AND SENT WITH THE PT.
[2024-07-02] MEDS ORDERED: Gabapentin 300 MG Cap PO SCH (21:00)
== END 2024-07-02 16:56 | disposition home or self-care (01) | DRG 639 ==
LOC: ER 12:47 → ICUE 12:48 → ER 12:48 → ICUE 12:48 → ERHOLD 12:48 → ICUE 22:52 → ERHOLD 07-01 15:39 → ICUE 07-02 16:56
PROVIDERS: Emergency Medicine; Internal Medicine; Student in an Organized Health Care Education/Training Program; ADMIT Internal Medicine
DX: E11.10 Type 2 diabetes mellitus with ketoacidosis without coma (principal); G40.409 Other generalized epilepsy and epileptic syndromes, not intractable, without status epilepticus; F31.9 Bipolar disorder, unspecified; F17.210 Nicotine dependence, cigarettes, uncomplicated; F10.10 Alcohol abuse, uncomplicated; F15.10 Other stimulant abuse, uncomplicated; E11.65 Type 2 diabetes mellitus with hyperglycemia; E86.0 Dehydration; F12.90 Cannabis use, unspecified, uncomplicated; Z88.8 Allergy status to other drugs, medicaments and biological substances; Z88.2 Allergy status to sulfonamides; Z86.14 Personal history of Methicillin resistant Staphylococcus aureus infection; Z98.890 Other specified postprocedural states; Z98.1 Arthrodesis status
CPT/HCPCS: 36415; 80048; 80053; 80069; 80320; 81003; 82010; 82947; 83735; 83880; 84100; 85025; 85027; 90656; 93005; 93010; 96361; 96365; 96366; 96367; 96368; 96372; 96374; 96375; 99284-25; A9270; G0008; G0378; J1650; J1815; J1953; J3475; J3480; J7030; J7042; J7050

== ENCOUNTER 2024-08-10 14:57 | Emergency (ER) | payer OTHER ==
[~2024-08-10] VITALS: Ht 175.3 cm; Wt 64.4 kg
[~2024-08-10 14:57] MED LIST changes: +BASAGLAR K100 UNIT/6 SC
[2024-08-10 16:26] LABS: BASOPHILS ABSOLUTE AUTO 0.03 K/mm3 (0.00-0.23); BASOPHILS PERCENT AUTO 0 % (0-2); EOSINOPHILS ABSOLUTE AUTO 0.06 K/mm3 (0.00-0.68); EOSINOPHILS PERCENT AUTO 1 % (0-6); Hemoglobin 16.4 g/dL (13.5-17.5); IMMATURE GRAN ABSOLUTE AUTO 0.01 K/mm3 (0.00-0.10); IMMATURE GRAN PERCENT AUTO 0 % (0-1); LYMPHOCYTES ABSOLUTE AUTO 1.03 K/mm3 (0.84-5.20); LYMPHOCYTES PERCENT AUTO 15 % (21-46); MONOCYTES ABSOLUTE AUTO 0.56 K/mm3 (0.16-1.47); MONOCYTES PERCENT AUTO 8 % (4-13); Mean Corpuscular HGB Conc 37.3 g/dL (31.5-36.5); Mean Corpuscular Volume 89 fL (80-100); Mean Platelet Volume 11.3 fL (9.1-12.4); NEUTROPHILS ABSOLUTE AUTO 5.29 K/mm3 (1.96-9.15); NEUTROPHILS PERCENT AUTO 76 % (41-73); Platelet Count 181 K/mm3 (150-400); RDW Coefficient Variation 12.7 % (11.7-14.2); RDW Standard Deviation 41.1 fL (35.1-46.3); Red Blood Cell Count 4.97 M/mm3 (4.30-5.90); White Blood Cell Count 6.98 K/mm3 (4.00-11.30)
[2024-08-10 16:46] LABS: Albumin/Globulin Ratio 1.4 (0.8-1.8); Bilirubin, Total 0.3 mg/dL (0.1-1.0); Bun/Creatinine Ratio 21.2 (12.0-20.0); Calcium, Blood 9.4 mg/dL (8.5-10.1); Creatinine, Blood 0.57 mg/dL (0.60-1.20); Globulin, Blood 2.9 g/dL (2.2-4.0); Potassium, Blood 4.7 mmol/L (3.5-5.5); Total Protein, Blood 6.9 g/dL (6.4-8.2)
[2024-08-10] MEDS ORDERED: METF500 PO (20:38)
[2024-08-10] MEDS ORDERED: Amaryl1 MG PO (20:39)
[2024-08-10] MEDS ORDERED: ACET325 PO (20:40)
[2024-08-10 21:36] LABS: Base Excess Venous 4.6 mmol/L; Bicarbonate Venous 28.2 mmol/L (24.0-30.0); PCO2 Venous 40.5 mmHg (38-42); pH Blood Venous 7.46 (7.34-7.37)
[2024-08-10 21:43] LABS: Source, Urine Voided
[2024-08-10 21:59] LABS: Bilirubin, Urine Neg (Neg); Blood, Urine Neg (Neg); Glucose Qualitative, Urine 4+ (Neg); Ketones, Urine 3+ (Neg); Leukocyte Esterase, Urine Neg (Neg); Nitrite, Urine Neg (Neg); Protein, Urine Neg (Neg); Specific Gravity, Urine 1.015 (1.003-1.022); Urobilinogen, Urine 1+ (Normal)
[2024-08-10] MEDS ORDERED: NS 1,000 ML IV SCH (22:05)
[2024-08-10 22:08] LABS: Appearance, Urine Clear (Clear); Color, Urine Yellow (P-Yellow)
[2024-08-10 22:27] LABS: Beta-hydroxybutyrate 11.1 mg/dL (0.2-2.8)
[2024-08-11] VITALS: BP 106/69
[2024-08-11 00:15] LABS: Bun/Creatinine Ratio 23.2 (12.0-20.0); Creatinine, Blood 0.47 mg/dL (0.60-1.20); Potassium, Blood 3.7 mmol/L (3.5-5.5)
== END 2024-08-11 00:35 | disposition home or self-care (01) ==
LOC: ER 14:57
PROVIDERS: Emergency Medicine
DX: E11.65 Type 2 diabetes mellitus with hyperglycemia (principal); E11.10 Type 2 diabetes mellitus with ketoacidosis without coma; J45.909 Unspecified asthma, uncomplicated; F17.210 Nicotine dependence, cigarettes, uncomplicated; Z79.84 Long term (current) use of oral hypoglycemic drugs; Z79.4 Long term (current) use of insulin; Z79.899 Other long term (current) drug therapy; Z88.2 Allergy status to sulfonamides; Z88.6 Allergy status to analgesic agent; Z88.8 Allergy status to other drugs, medicaments and biological substances
CPT/HCPCS: 80048; 80053; 81003; 82010; 82803; 85025; 96360; 96361; 99283-25; J7030

== ENCOUNTER 2024-10-04 08:38 | Emergency (ER) | payer OTHER ==
[~2024-10-04] VITALS: Ht 182.9 cm; Wt 63.5 kg
[~2024-10-04 08:38] MED LIST changes: +ACET325 PO; +Amaryl1 MG PO; +METF500 PO
[2024-10-04] MEDS ORDERED: NS 1,000 ML IV SCH (10:00)
[2024-10-04] MEDS ORDERED: levETIRAcetam 500 MG in NS 100 ML IV ONE (10:20)
[2024-10-04 11:11] LABS: Magnesium, Blood 1.7 mg/dL (1.6-2.4); Prolactin 3.2 ng/mL (2.5-17.4)
[2024-10-04 11:12] LABS: Bun/Creatinine Ratio 34.9 (12.0-20.0); Calcium, Blood 8.2 mg/dL (8.5-10.1); Creatinine, Blood 0.52 mg/dL (0.60-1.20); Potassium, Blood 4.5 mmol/L (3.5-5.5)
[2024-10-04 11:42] LABS: U Amphetamine Screen Not Detected; U Barbituate Screen Not Detected; U Benzodiazapine Screen Not Detected; U Buprenorphine Screen Not Detected; U Cannabinoids Screen DETECTED; U Cocaine Screen Not Detected; U Methadone Screen Not Detected; U Methamphetamine Screen Not Detected; U Opiates Screen Not Detected; U Oxycodone Screen Not Detected; U Phencyclidine Screen Not Detected
[2024-10-04 12:59] LABS: BASOPHILS ABSOLUTE AUTO 0.02 K/mm3 (0.00-0.23); BASOPHILS PERCENT AUTO 0 % (0-2); EOSINOPHILS ABSOLUTE AUTO 0.09 K/mm3 (0.00-0.68); EOSINOPHILS PERCENT AUTO 2 % (0-6); Hematocrit 43.9 % (37.0-53.0); IMMATURE GRAN ABSOLUTE AUTO 0.02 K/mm3 (0.00-0.10); IMMATURE GRAN PERCENT AUTO 0 % (0-1); LYMPHOCYTES ABSOLUTE AUTO 0.81 K/mm3 (0.84-5.20); LYMPHOCYTES PERCENT AUTO 14 % (21-46); MONOCYTES ABSOLUTE AUTO 0.39 K/mm3 (0.16-1.47); MONOCYTES PERCENT AUTO 7 % (4-13); Mean Corpuscular Volume 90 fL (80-100); Mean Platelet Volume 11.2 fL (9.1-12.4); NEUTROPHILS ABSOLUTE AUTO 4.48 K/mm3 (1.96-9.15); NEUTROPHILS PERCENT AUTO 77 % (41-73); Platelet Count 177 K/mm3 (150-400); RDW Standard Deviation 36.5 fL (35.1-46.3); Red Blood Cell Count 4.86 M/mm3 (4.30-5.90); White Blood Cell Count 5.81 K/mm3 (4.00-11.30)
[2024-10-04 14:18] VITALS: BP 132/107
[2024-10-06 16:15] LABS: KEPPRA (LEVETIRACETAM) 5 ug/mL (10-40)
== END 2024-10-04 14:20 | disposition home or self-care (01) ==
LOC: ER 08:38
PROVIDERS: Student in an Organized Health Care Education/Training Program
DX: R56.9 Unspecified convulsions (principal); E11.9 Type 2 diabetes mellitus without complications; J45.909 Unspecified asthma, uncomplicated; F17.210 Nicotine dependence, cigarettes, uncomplicated; Z79.84 Long term (current) use of oral hypoglycemic drugs; Z79.4 Long term (current) use of insulin; Z79.899 Other long term (current) drug therapy; Z88.6 Allergy status to analgesic agent; Z88.2 Allergy status to sulfonamides; Z88.1 Allergy status to other antibiotic agents
CPT/HCPCS: 36415; 70450; 80048; 80177; 82550; 83735; 84146; 85025; 93005; 93010; 96365; 99284-25; J1953; J7030

== ENCOUNTER → 2025-01-11 | Emergency (ER) | payer OTHER ==
[~2025-01-11] VITALS: Ht 175.3 cm; Wt 63.5 kg
[2025-01-11 10:51] VITALS: BP 127/95
== END ==
LOC: ER 10:38
DX: G40.909 Epilepsy, unspecified, not intractable, without status epilepticus (principal); E11.9 Type 2 diabetes mellitus without complications; J45.909 Unspecified asthma, uncomplicated; F17.200 Nicotine dependence, unspecified, uncomplicated; Z79.84 Long term (current) use of oral hypoglycemic drugs; Z79.4 Long term (current) use of insulin; Z79.899 Other long term (current) drug therapy
CPT/HCPCS: 99284

== ENCOUNTER 2025-01-18 20:02 | Emergency (ER) | payer OTHER ==
[~2025-01-18] VITALS: Ht 175.3 cm; Wt 64.0 kg
[2025-01-18] MEDS ORDERED: INSULANI (20:15)
[2025-01-18 20:25] LABS: BASOPHILS ABSOLUTE AUTO 0.04 K/mm3 (0.00-0.23); BASOPHILS PERCENT AUTO 1 % (0-2); EOSINOPHILS ABSOLUTE AUTO 0.37 K/mm3 (0.00-0.68); EOSINOPHILS PERCENT AUTO 5 % (0-6); Hematocrit 42.0 % (37.0-53.0); Hemoglobin 15.3 g/dL (13.5-17.5); IMMATURE GRAN ABSOLUTE AUTO 0.02 K/mm3 (0.00-0.10); IMMATURE GRAN PERCENT AUTO 0 % (0-1); LYMPHOCYTES ABSOLUTE AUTO 1.82 K/mm3 (0.84-5.20); LYMPHOCYTES PERCENT AUTO 25 % (21-46); MONOCYTES ABSOLUTE AUTO 0.54 K/mm3 (0.16-1.47); MONOCYTES PERCENT AUTO 7 % (4-13); Mean Corpuscular HGB Conc 36.4 g/dL (31.5-36.5); Mean Corpuscular Volume 90 fL (80-100); NEUTROPHILS ABSOLUTE AUTO 4.53 K/mm3 (1.96-9.15); NEUTROPHILS PERCENT AUTO 62 % (41-73); NRBC ABSOLUTE 0.00 K/mm3 (0.00-0.02); NRBC Auto 0.0 /100 WBC (0.0-0.2); Platelet Count 207 K/mm3 (150-400); RDW Coefficient Variation 11.3 % (11.7-14.2); RDW Standard Deviation 37.5 fL (35.1-46.3)
[2025-01-18 20:48] LABS: pH Blood Venous 7.45 (7.34-7.37)
[2025-01-18 21:06] LABS: Alanine Aminotransfer (ALT/SGP 15.0 U/L (12-78); Albumin, Blood 3.5 g/dL (3.4-5.0); Albumin/Globulin Ratio 1.0 (0.8-1.8); Anion Gap 10.0 mmol/L (3-11); Aspartate Aminotrans (AST/SGOT 8.0 U/L (12-37); Bilirubin, Total 0.3 mg/dL (0.1-1.0); Blood Urea Nitrogen 7.0 mg/dL (8-24); CO2, Blood 25.0 mmol/L (21-32); Calcium, Blood 8.2 mg/dL (8.5-10.1); Chloride, Blood 107.0 mmol/L (98-108); Creatinine, Blood 0.63 mg/dL (0.60-1.20); Ethanol (Alcohol), Blood, Med 178.0 mg/dL; Globulin, Blood 3.5 g/dL (2.2-4.0); Glucose, Blood 300.0 mg/dL (70-99); Potassium, Blood 3.7 mmol/L (3.5-5.5); Sodium, Blood 138.0 mmol/L (136-145); Total Protein, Blood 7.0 g/dL (6.4-8.2)
[2025-01-18 22:09] LABS: Source, Urine Clean Catch
[2025-01-18 22:11] LABS: Bilirubin, Urine Neg (Neg); Color, Urine Yellow (P-Yellow); Glucose Qualitative, Urine 4+ (Neg); Ketones, Urine 1+ (Neg); Leukocyte Esterase, Urine Neg (Neg); Protein, Urine Neg (Neg); Specific Gravity, Urine 1.015 (1.003-1.022); Urobilinogen, Urine 1+ (Normal)
[2025-01-18 22:47] VITALS: BP 126/84
== END 2025-01-18 22:47 | disposition home or self-care (01) ==
LOC: ER 20:02
PROVIDERS: Student in an Organized Health Care Education/Training Program
DX: F10.10 Alcohol abuse, uncomplicated (principal); Z79.2 Long term (current) use of antibiotics; Z79.899 Other long term (current) drug therapy; E11.9 Type 2 diabetes mellitus without complications; F17.200 Nicotine dependence, unspecified, uncomplicated; Z86.69 Personal history of other diseases of the nervous system and sense organs
CPT/HCPCS: 80053; 80320; 81003; 82010; 82803; 85025; 93005; 93010; 96360; 99284-25; J7120

== ENCOUNTER 2025-02-07 10:26 | Emergency (ER) | payer OTHER ==
[~2025-02-07] VITALS: Ht 175.3 cm; Wt 79.4 kg
[~2025-02-07 10:26] MED LIST changes: +INSULANI
[2025-02-07 10:56] LABS: BASOPHILS ABSOLUTE AUTO 0.04 K/mm3 (0.00-0.23); BASOPHILS PERCENT AUTO 1 % (0-2); EOSINOPHILS ABSOLUTE AUTO 0.16 K/mm3 (0.00-0.68); EOSINOPHILS PERCENT AUTO 2 % (0-6); Hematocrit 44.9 % (37.0-53.0); Hemoglobin 15.9 g/dL (13.5-17.5); IMMATURE GRAN ABSOLUTE AUTO 0.01 K/mm3 (0.00-0.10); IMMATURE GRAN PERCENT AUTO 0 % (0-1); LYMPHOCYTES ABSOLUTE AUTO 1.30 K/mm3 (0.84-5.20); LYMPHOCYTES PERCENT AUTO 18 % (21-46); MONOCYTES ABSOLUTE AUTO 0.49 K/mm3 (0.16-1.47); MONOCYTES PERCENT AUTO 7 % (4-13); Mean Corpuscular HGB Conc 35.4 g/dL (31.5-36.5); Mean Corpuscular Volume 94 fL (80-100); NEUTROPHILS ABSOLUTE AUTO 5.11 K/mm3 (1.96-9.15); NEUTROPHILS PERCENT AUTO 72 % (41-73); NRBC ABSOLUTE 0.00 K/mm3 (0.00-0.02); NRBC Auto 0.0 /100 WBC (0.0-0.2); Platelet Count 174 K/mm3 (150-400); RDW Coefficient Variation 11.6 % (11.7-14.2); RDW Standard Deviation 40.0 fL (35.1-46.3)
[2025-02-07 11:35] LABS: Alanine Aminotransfer (ALT/SGP 15.0 U/L (12-78); Albumin, Blood 3.3 g/dL (3.4-5.0); Albumin/Globulin Ratio 1.1 (0.8-1.8); Anion Gap 6.0 mmol/L (3-11); Aspartate Aminotrans (AST/SGOT 11.0 U/L (12-37); Bilirubin, Total 0.4 mg/dL (0.1-1.0); Blood Urea Nitrogen 9.0 mg/dL (8-24); CO2, Blood 28.0 mmol/L (21-32); Calcium, Blood 8.1 mg/dL (8.5-10.1); Chloride, Blood 105.0 mmol/L (98-108); Creatinine, Blood 0.42 mg/dL (0.60-1.20); Globulin, Blood 3.0 g/dL (2.2-4.0); Glucose, Blood 165.0 mg/dL (70-99); Potassium, Blood 4.0 mmol/L (3.5-5.5); Sodium, Blood 135.0 mmol/L (136-145); Total Protein, Blood 6.3 g/dL (6.4-8.2)
[2025-02-07] MEDS ORDERED: LEVE500 PO (11:44)
[2025-02-07 12:00] VITALS: BP 116/98
[2025-02-08 23:32] LABS: KEPPRA (LEVETIRACETAM) 13.9 ug/mL (10.0-40.0)
== END 2025-02-07 12:23 | disposition home or self-care (01) ==
LOC: ER 10:26
PROVIDERS: Emergency Medicine
DX: G40.409 Other generalized epilepsy and epileptic syndromes, not intractable, without status epilepticus (principal); E11.65 Type 2 diabetes mellitus with hyperglycemia; J45.909 Unspecified asthma, uncomplicated; F17.200 Nicotine dependence, unspecified, uncomplicated; Z79.4 Long term (current) use of insulin; Z79.84 Long term (current) use of oral hypoglycemic drugs; Z79.899 Other long term (current) drug therapy
CPT/HCPCS: 80053; 80177; 82947; 85025; 99284

== ENCOUNTER 2025-03-19 09:23 | Emergency (ER) | payer OTHER ==
[~2025-03-19] VITALS: Ht 175.3 cm; Wt 72.6 kg
[2025-03-19] MEDS ORDERED: NS 500 ML IV SCH (09:50)
[2025-03-19 10:12] LABS: BASOPHILS ABSOLUTE AUTO 0.02 K/mm3 (0.00-0.23); BASOPHILS PERCENT AUTO 0 % (0-2); EOSINOPHILS ABSOLUTE AUTO 0.26 K/mm3 (0.00-0.68); EOSINOPHILS PERCENT AUTO 4 % (0-6); Hematocrit 43.7 % (37.0-53.0); Hemoglobin 15.6 g/dL (13.5-17.5); IMMATURE GRAN ABSOLUTE AUTO 0.02 K/mm3 (0.00-0.10); IMMATURE GRAN PERCENT AUTO 0 % (0-1); LYMPHOCYTES ABSOLUTE AUTO 1.20 K/mm3 (0.84-5.20); LYMPHOCYTES PERCENT AUTO 18 % (21-46); MONOCYTES ABSOLUTE AUTO 0.41 K/mm3 (0.16-1.47); MONOCYTES PERCENT AUTO 6 % (4-13); Mean Corpuscular HGB Conc 35.7 g/dL (31.5-36.5); Mean Corpuscular Volume 90 fL (80-100); NEUTROPHILS ABSOLUTE AUTO 4.60 K/mm3 (1.96-9.15); NEUTROPHILS PERCENT AUTO 71 % (41-73); NRBC ABSOLUTE 0.00 K/mm3 (0.00-0.02); NRBC Auto 0.0 /100 WBC (0.0-0.2); Platelet Count 158 K/mm3 (150-400); RDW Coefficient Variation 11.2 % (11.7-14.2); RDW Standard Deviation 37.1 fL (35.1-46.3)
[2025-03-19 10:35] LABS: Magnesium, Blood 1.8 mg/dL (1.6-2.4)
[2025-03-19 10:36] LABS: Alanine Aminotransfer (ALT/SGP 17.0 U/L (12-78); Albumin, Blood 3.4 g/dL (3.4-5.0); Albumin/Globulin Ratio 1.3 (0.8-1.8); Anion Gap 5.0 mmol/L (3-11); Aspartate Aminotrans (AST/SGOT 15.0 U/L (12-37); Bilirubin, Total 0.4 mg/dL (0.1-1.0); Blood Urea Nitrogen 15.0 mg/dL (8-24); CO2, Blood 29.0 mmol/L (21-32); Calcium, Blood 8.2 mg/dL (8.5-10.1); Chloride, Blood 105.0 mmol/L (98-108); Creatinine, Blood 0.63 mg/dL (0.60-1.20); Globulin, Blood 2.7 g/dL (2.2-4.0); Glucose, Blood 183.0 mg/dL (70-99); Potassium, Blood 3.7 mmol/L (3.5-5.5); Sodium, Blood 135.0 mmol/L (136-145); Total Protein, Blood 6.1 g/dL (6.4-8.2)
[2025-03-19 12:31] LABS: U Amphetamine Screen Not Detected; U Barbituate Screen Not Detected; U Benzodiazapine Screen Not Detected; U Buprenorphine Screen Not Detected; U Cannabinoids Screen DETECTED; U Cocaine Screen Not Detected; U Methadone Screen Not Detected; U Methamphetamine Screen Not Detected; U Opiates Screen Not Detected; U Oxycodone Screen Not Detected; U Phencyclidine Screen Not Detected
[2025-03-19 13:30] VITALS: BP 119/90
[2025-03-24] MEDS ORDERED: GABA300 PO (13:37)
== END 2025-03-19 13:56 | disposition home or self-care (01) ==
LOC: ER 09:23
PROVIDERS: Student in an Organized Health Care Education/Training Program
DX: G40.909 Epilepsy, unspecified, not intractable, without status epilepticus (principal); E83.51 Hypocalcemia; Z79.899 Other long term (current) drug therapy; Z79.84 Long term (current) use of oral hypoglycemic drugs; E11.9 Type 2 diabetes mellitus without complications; F17.210 Nicotine dependence, cigarettes, uncomplicated
CPT/HCPCS: 80053; 80320; 83735; 84146; 85025; 93005; 93010; 96374; 99284-25; J0612; J7030

== ENCOUNTER 2025-04-07 09:53 | Emergency (ER) | payer OTHER ==
[~2025-04-07] VITALS: Ht 175.3 cm; Wt 74.8 kg
[2025-04-07 09:58] VITALS: BP 141/97
== END 2025-04-07 10:19 | disposition home or self-care (01) ==
LOC: ER 09:53
DX: G40.89 Other seizures (principal); I10 Essential (primary) hypertension; E11.65 Type 2 diabetes mellitus with hyperglycemia; J45.909 Unspecified asthma, uncomplicated; F17.210 Nicotine dependence, cigarettes, uncomplicated; Z79.4 Long term (current) use of insulin; Z79.84 Long term (current) use of oral hypoglycemic drugs; Z79.899 Other long term (current) drug therapy
CPT/HCPCS: 93005; 93010; 99284-25

== ENCOUNTER 2025-04-10 14:54 | Emergency (ER) | payer OTHER ==
[~2025-04-10] VITALS: Ht 170.2 cm; Wt 68.0 kg
[2025-04-10 15:46] LABS: Calcium, Ionized (POC) 1.01 mmol/L (1.10-1.46); Chloride (POC) 101 mmol/L (98-108); Creatinine (POC) 0.6 mg/dL (0.8-1.3); Glucose (ISTAT POC) 170 mg/dL (70-99); Hematocrit (POC) 50.0 % (41.0-53.0); Hemoglobin (POC) 17.0 g/dL (13.5-17.5); Potassium (POC) 4.3 mmol/L (3.5-5.5); Sodium (POC) 136 mmol/L (135-148); Total CO2 (POC) 25 mmol/L (21-32)
[2025-04-10 16:15] VITALS: BP 133/92
== END 2025-04-10 16:52 | disposition home or self-care (01) ==
LOC: ER 14:54
PROVIDERS: Physician Assistant
DX: R56.9 Unspecified convulsions (principal); S00.81XA Abrasion of other part of head, initial encounter; F17.210 Nicotine dependence, cigarettes, uncomplicated; J45.909 Unspecified asthma, uncomplicated; Z79.84 Long term (current) use of oral hypoglycemic drugs; Z79.4 Long term (current) use of insulin; Z79.899 Other long term (current) drug therapy
CPT/HCPCS: 70450; 80047; 85014; 99284-25

== ENCOUNTER 2025-04-19 07:45 | Emergency (ER) | payer OTHER ==
[~2025-04-19] VITALS: Ht 175.3 cm; Wt 72.6 kg
[2025-04-19 09:02] VITALS: BP 105/79
== END 2025-04-19 09:05 | disposition home or self-care (01) ==
LOC: ER 07:45
DX: G40.909 Epilepsy, unspecified, not intractable, without status epilepticus (principal); E11.9 Type 2 diabetes mellitus without complications; J45.909 Unspecified asthma, uncomplicated; Z79.4 Long term (current) use of insulin; Z79.84 Long term (current) use of oral hypoglycemic drugs; F17.210 Nicotine dependence, cigarettes, uncomplicated
CPT/HCPCS: 99284; A9270

== ENCOUNTER 2025-04-24 09:55 | Emergency (ER) | payer OTHER ==
[~2025-04-24] VITALS: Ht 175.3 cm; Wt 72.6 kg
[2025-04-24 10:51] LABS: BASOPHILS ABSOLUTE AUTO 0.04 K/mm3 (0.00-0.23); BASOPHILS PERCENT AUTO 1 % (0-2); EOSINOPHILS ABSOLUTE AUTO 0.23 K/mm3 (0.00-0.68); EOSINOPHILS PERCENT AUTO 3 % (0-6); Hematocrit 47.8 % (37.0-53.0); Hemoglobin 17.3 g/dL (13.5-17.5); IMMATURE GRAN ABSOLUTE AUTO 0.01 K/mm3 (0.00-0.10); IMMATURE GRAN PERCENT AUTO 0 % (0-1); LYMPHOCYTES ABSOLUTE AUTO 0.86 K/mm3 (0.84-5.20); LYMPHOCYTES PERCENT AUTO 13 % (21-46); MONOCYTES ABSOLUTE AUTO 0.53 K/mm3 (0.16-1.47); MONOCYTES PERCENT AUTO 8 % (4-13); Mean Corpuscular HGB Conc 36.2 g/dL (31.5-36.5); Mean Corpuscular Volume 88 fL (80-100); NEUTROPHILS ABSOLUTE AUTO 5.14 K/mm3 (1.96-9.15); NEUTROPHILS PERCENT AUTO 76 % (41-73); NRBC ABSOLUTE 0.00 K/mm3 (0.00-0.02); NRBC Auto 0.0 /100 WBC (0.0-0.2); Platelet Count 167 K/mm3 (150-400); RDW Coefficient Variation 11.5 % (11.7-14.2); RDW Standard Deviation 36.8 fL (35.1-46.3)
[2025-04-24 11:17] LABS: Alanine Aminotransfer (ALT/SGP 23.0 U/L (12-78); Albumin, Blood 3.8 g/dL (3.4-5.0); Albumin/Globulin Ratio 1.4 (0.8-1.8); Anion Gap 7.0 mmol/L (3-11); Aspartate Aminotrans (AST/SGOT 15.0 U/L (12-37); Bilirubin, Total 1.4 mg/dL (0.1-1.0); Blood Urea Nitrogen 13.0 mg/dL (8-24); CO2, Blood 29.0 mmol/L (21-32); Calcium, Blood 8.6 mg/dL (8.5-10.1); Chloride, Blood 100.0 mmol/L (98-108); Creatinine, Blood 0.52 mg/dL (0.60-1.20); Globulin, Blood 2.8 g/dL (2.2-4.0); Glucose, Blood 288.0 mg/dL (70-99); Potassium, Blood 4.3 mmol/L (3.5-5.5); Sodium, Blood 132.0 mmol/L (136-145); Total Protein, Blood 6.6 g/dL (6.4-8.2)
[2025-04-24 12:15] VITALS: BP 117/82
[2025-04-25 18:23] LABS: KEPPRA (LEVETIRACETAM) <2.0 ug/mL (10.0-40.0)
== END 2025-04-24 12:22 | disposition home or self-care (01) ==
LOC: ER 09:55
PROVIDERS: Emergency Medicine
DX: G40.909 Epilepsy, unspecified, not intractable, without status epilepticus (principal); E11.65 Type 2 diabetes mellitus with hyperglycemia; J45.909 Unspecified asthma, uncomplicated; F17.210 Nicotine dependence, cigarettes, uncomplicated; Z79.4 Long term (current) use of insulin; Z79.84 Long term (current) use of oral hypoglycemic drugs; Z79.899 Other long term (current) drug therapy
CPT/HCPCS: 80053; 80177; 85025; 99284; A9270

== ENCOUNTER 2025-05-13 10:10 | Emergency (ER) | payer OTHER ==
[~2025-05-13] VITALS: Ht 175.3 cm; Wt 72.6 kg
[2025-05-13 10:49] LABS: BASOPHILS ABSOLUTE AUTO 0.05 K/mm3 (0.00-0.23); BASOPHILS PERCENT AUTO 1 % (0-2); EOSINOPHILS ABSOLUTE AUTO 0.16 K/mm3 (0.00-0.68); EOSINOPHILS PERCENT AUTO 3 % (0-6); Hematocrit 46.7 % (37.0-53.0); Hemoglobin 16.8 g/dL (13.5-17.5); IMMATURE GRAN ABSOLUTE AUTO 0.02 K/mm3 (0.00-0.10); IMMATURE GRAN PERCENT AUTO 0 % (0-1); LYMPHOCYTES ABSOLUTE AUTO 0.76 K/mm3 (0.84-5.20); LYMPHOCYTES PERCENT AUTO 15 % (21-46); MONOCYTES ABSOLUTE AUTO 0.34 K/mm3 (0.16-1.47); MONOCYTES PERCENT AUTO 7 % (4-13); Mean Corpuscular HGB Conc 36.0 g/dL (31.5-36.5); Mean Corpuscular Volume 90 fL (80-100); NEUTROPHILS ABSOLUTE AUTO 3.84 K/mm3 (1.96-9.15); NEUTROPHILS PERCENT AUTO 74 % (41-73); NRBC ABSOLUTE 0.00 K/mm3 (0.00-0.02); NRBC Auto 0.0 /100 WBC (0.0-0.2); Platelet Count 147 K/mm3 (150-400); RDW Coefficient Variation 11.4 % (11.7-14.2); RDW Standard Deviation 37.5 fL (35.1-46.3)
[2025-05-13 11:12] LABS: Alanine Aminotransfer (ALT/SGP 24.0 U/L (12-78); Albumin, Blood 3.9 g/dL (3.4-5.0); Albumin/Globulin Ratio 1.3 (0.8-1.8); Anion Gap 14.0 mmol/L (3-11); Aspartate Aminotrans (AST/SGOT 18.0 U/L (12-37); Bilirubin, Total 0.6 mg/dL (0.1-1.0); Blood Urea Nitrogen 12.0 mg/dL (8-24); CO2, Blood 26.0 mmol/L (21-32); Calcium, Blood 8.9 mg/dL (8.5-10.1); Chloride, Blood 101.0 mmol/L (98-108); Creatinine, Blood 0.52 mg/dL (0.60-1.20); Globulin, Blood 2.9 g/dL (2.2-4.0); Glucose, Blood 279.0 mg/dL (70-99); Potassium, Blood 4.8 mmol/L (3.5-5.5); Sodium, Blood 136.0 mmol/L (136-145); Total Protein, Blood 6.8 g/dL (6.4-8.2)
[2025-05-13 11:30] VITALS: BP 116/81
[2025-05-13] MEDS ORDERED: Neurontin 300300 MG PO (11:34)
== END 2025-05-13 11:46 | disposition home or self-care (01) ==
LOC: ER 10:10
PROVIDERS: Emergency Medicine
DX: G40.909 Epilepsy, unspecified, not intractable, without status epilepticus (principal); S00.81XA Abrasion of other part of head, initial encounter; W19.XXXA Unspecified fall, initial encounter; E11.65 Type 2 diabetes mellitus with hyperglycemia; J45.909 Unspecified asthma, uncomplicated; F17.210 Nicotine dependence, cigarettes, uncomplicated; Z79.4 Long term (current) use of insulin; Z79.84 Long term (current) use of oral hypoglycemic drugs; Z79.899 Other long term (current) drug therapy
CPT/HCPCS: 80053; 85025; 99284; A9270

== ENCOUNTER 2025-06-16 09:34 | Emergency (ER) | payer OTHER ==
[~2025-06-16] VITALS: Ht 175.3 cm; Wt 72.6 kg
[~2025-06-16 09:34] MED LIST changes: +Neurontin 300300 MG PO
[2025-06-16 10:05] LABS: BASOPHILS ABSOLUTE AUTO 0.03 K/mm3 (0.00-0.23); BASOPHILS PERCENT AUTO 1 % (0-2); EOSINOPHILS ABSOLUTE AUTO 0.14 K/mm3 (0.00-0.68); EOSINOPHILS PERCENT AUTO 3 % (0-6); Hematocrit 44.3 % (37.0-53.0); Hemoglobin 16.3 g/dL (13.5-17.5); IMMATURE GRAN ABSOLUTE AUTO 0.02 K/mm3 (0.00-0.10); IMMATURE GRAN PERCENT AUTO 0 % (0-1); LYMPHOCYTES ABSOLUTE AUTO 0.62 K/mm3 (0.84-5.20); LYMPHOCYTES PERCENT AUTO 13 % (21-46); MONOCYTES ABSOLUTE AUTO 0.37 K/mm3 (0.16-1.47); MONOCYTES PERCENT AUTO 8 % (4-13); Mean Corpuscular HGB Conc 36.8 g/dL (31.5-36.5); Mean Corpuscular Volume 89 fL (80-100); NEUTROPHILS ABSOLUTE AUTO 3.45 K/mm3 (1.96-9.15); NEUTROPHILS PERCENT AUTO 75 % (41-73); NRBC ABSOLUTE 0.00 K/mm3 (0.00-0.02); NRBC Auto 0.0 /100 WBC (0.0-0.2); Platelet Count 128 K/mm3 (150-400); RDW Coefficient Variation 11.3 % (11.7-14.2); RDW Standard Deviation 37.0 fL (35.1-46.3)
[2025-06-16 10:25] LABS: pH Blood Venous 7.35 (7.34-7.37)
[2025-06-16 10:45] LABS: Alanine Aminotransfer (ALT/SGP 21 U/L (12-78); Albumin, Blood 3.2 g/dL (3.4-5.0); Albumin/Globulin Ratio 1.2 (0.8-1.8); Anion Gap 12 mmol/L (3-11); Aspartate Aminotrans (AST/SGOT 9 U/L (12-37); Bilirubin, Total 0.6 mg/dL (0.1-1.0); Blood Urea Nitrogen 11 mg/dL (8-24); CO2, Blood 25 mmol/L (21-32); Calcium, Blood 8.2 mg/dL (8.5-10.1); Chloride, Blood 99 mmol/L (98-108); Creatinine, Blood 0.49 mg/dL (0.60-1.20); Globulin, Blood 2.6 g/dL (2.2-4.0); Glucose, Blood 558 mg/dL (70-99); Potassium, Blood 4.3 mmol/L (3.5-5.5); Sodium, Blood 132 mmol/L (136-145); Total Protein, Blood 5.8 g/dL (6.4-8.2)
[2025-06-16] MEDS ORDERED: Insulin Regular 100 Unit/ML 1ML Dose IV ONE (11:10)
[2025-06-16] MEDS ORDERED: NS 1,000 ML IV SCH (12:30)
[2025-06-16 13:15] VITALS: BP 120/89
== END 2025-06-16 14:05 | disposition home or self-care (01) ==
LOC: ER 09:34
PROVIDERS: Student in an Organized Health Care Education/Training Program
DX: G40.409 Other generalized epilepsy and epileptic syndromes, not intractable, without status epilepticus (principal); E11.65 Type 2 diabetes mellitus with hyperglycemia; T42.6X6A Underdosing of other antiepileptic and sedative-hypnotic drugs, initial encounter; F17.210 Nicotine dependence, cigarettes, uncomplicated; Z91.148 Patient's other noncompliance with medication regimen for other reason; Z79.4 Long term (current) use of insulin; Z79.899 Other long term (current) drug therapy
CPT/HCPCS: 80053; 82010; 82803; 82947; 85025; 96360; 99284-25; J1815; J7030

== ENCOUNTER 2025-06-24 09:16 | Emergency (ER) | payer OTHER ==
[~2025-06-24] VITALS: Ht 175.3 cm; Wt 72.6 kg
[2025-06-24 10:40] VITALS: BP 100/73
== END 2025-06-24 10:40 | disposition home or self-care (01) ==
LOC: ER 09:16
DX: G40.909 Epilepsy, unspecified, not intractable, without status epilepticus (principal); F31.9 Bipolar disorder, unspecified; J45.909 Unspecified asthma, uncomplicated; E11.9 Type 2 diabetes mellitus without complications; F17.210 Nicotine dependence, cigarettes, uncomplicated; Z79.4 Long term (current) use of insulin; Z79.899 Other long term (current) drug therapy
CPT/HCPCS: 82947

== ENCOUNTER → 2025-06-28 | Outpatient (CLI) | payer OTHER | LOC: LAB 13:16 → LAB SHORT 13:16 | DX: E11.65 Type 2 diabetes mellitus with hyperglycemia (principal); Z79.4 Long term (current) use of insulin | CPT/HCPCS: 82043 ==